=== PATIENT | female | born 1955 | race Caucasian/White ===

== ENCOUNTER → 2020-02-28 08:37 | Outpatient (BNVA) | payer MEDICARE, MEDICAID, SELFPAY | PROVIDERS: PCP Internal Medicine; Visit Provider Student in an Organized Health Care Education/Training Program | DX: Z13.89 Encounter for screening for other disorder (principal) | CPT/HCPCS: Q3014 ==

== ENCOUNTER 2020-03-04 09:35 | Outpatient (REF) | payer MEDICARE, MEDICAID, SELFPAY ==
[2020-03-04 10:56] LABS: MANUAL DIFF FLAG NO
[2020-03-04 11:02] LABS: Basophils Absolute Auto 0.1 X10*3/uL (0.0-0.2); Basophils Percent Auto 1.1 % (0-2); Eosinophils Absolute Auto 0.2 X10*3/uL (0.0-0.4); Eosinophils Percent Auto 3.2 % (0-4); Hematocrit 42.1 % (37-47); Imm Gran Abs Auto 0.06 X10*3/uL (0.00-0.03); Imm Gran Pct Auto 1.3 % (0.0-0.4); Lymphocytes Absolute Auto 1.4 X10*3/uL (1.2-4.9); Lymphocytes Percent Auto 29.2 % (20-40); Mean Corpuscular HGB Conc 30.9 g/dl (31.0-35.0); Mean Corpuscular Hemoglobin 26.3 pg (27.0-33.0); Mean Corpuscular Volume 85.2 fL (80-98); Mean Platelet Volume 10.4 fL (9.4-12.3); Monocytes Absolute Auto 0.4 X10*3/uL (0.1-1.2); Monocytes Percent Auto 7.9 % (2-11); Neutrophils Absolute Auto 2.7 X10*3/uL (2.0-8.3); Neutrophils Percent Auto 57.3 % (45-73); Platelet Count 284 X10*3/uL (160-400); Red Blood Count 4.94 X10*6/uL (4.20-5.50); Red Cell Distribution Width 16.8 % (11.0-16.0); White Blood Count 4.7 X10*3/uL (4.8-10.8)
[2020-03-04 11:28] LABS: Alanine Aminotransferase 19 U/L (0-31); Albumin Level 4.4 g/dL (3.5-5.0); Alkaline Phosphatase 59 U/L (39-117); Anion Gap 14 (12-20); Aspartate Amino Transferase 16 U/L (5-31); Bilirubin Total 0.3 mg/dL (0.0-1.0); Blood Urea Nitrogen 19 mg/dL (9-16); C Reactive Protein 0.21 mg/dL (< or = 0.50); Calcium 8.3 mg/dL (8.4-10.2); Carbon Dioxide 29 mmol/L (22-29); Chloride 108 mmol/L (96-108); Estimated Glomerular Filt Rate > 60; Glucose Random 91 mg/dL (60-115); Potassium 5.1 mmol/l (3.3-5.1); Sodium 146 mmol/L (135-145)
[2020-03-04 11:51] LABS: Erythrocyte Sedimentation Rate 5 MM/HR (0-20)
[2020-03-07 23:32] LABS: Vitamin D 25-OH, D2 <4 ng/mL; Vitamin D 25-OH, D3 37 ng/mL; Vitamin D 25-OH, Total 37 ng/mL (30-100)
== END 2020-03-04 09:36 | disposition home or self-care (01) ==
LOC: HO.LAB 09:35
PROVIDERS: PCP Internal Medicine; Visit Provider Student in an Organized Health Care Education/Training Program
DX: M81.0 Age-related osteoporosis without current pathological fracture (principal); L40.50 Arthropathic psoriasis, unspecified; Z79.899 Other long term (current) drug therapy
CPT/HCPCS: 36415; 80053; 82306; 85025; 85652; 86140

== ENCOUNTER → 2020-03-04 09:35 | Outpatient (BNVA) | payer MEDICARE, MEDICAID, SELFPAY | PROVIDERS: PCP Internal Medicine; Visit Provider Student in an Organized Health Care Education/Training Program | DX: L40.50 Arthropathic psoriasis, unspecified (principal); M81.0 Age-related osteoporosis without current pathological fracture | CPT/HCPCS: 99211 ==

== ENCOUNTER → 2020-05-08 09:22 | Outpatient (BNVA) | payer MEDICARE, MEDICAID, SELFPAY | PROVIDERS: PCP Internal Medicine; Visit Provider Student in an Organized Health Care Education/Training Program | DX: L40.50 Arthropathic psoriasis, unspecified (principal); M81.0 Age-related osteoporosis without current pathological fracture; Z79.899 Other long term (current) drug therapy | CPT/HCPCS: 99212 ==

== ENCOUNTER 2020-08-08 10:03 | Outpatient (REF) | payer MEDICARE, MEDICAID, SELFPAY ==
[2020-08-08 10:58] LABS: MANUAL DIFF FLAG NO
[2020-08-08 11:06] LABS: Basophils Absolute Auto 0.1 X10*3/uL (0.0-0.2); Basophils Percent Auto 1.1 % (0-2); Eosinophils Absolute Auto 0.1 X10*3/uL (0.0-0.4); Eosinophils Percent Auto 2.9 % (0-4); Hematocrit 40.9 % (37-47); Hemoglobin 13.1 g/dl (12.0-16.0); Imm Gran Abs Auto 0.04 X10*3/uL (0.00-0.03); Imm Gran Pct Auto 0.9 % (0.0-0.4); Lymphocytes Absolute Auto 1.7 X10*3/uL (1.2-4.9); Lymphocytes Percent Auto 38.8 % (20-40); Mean Corpuscular Hemoglobin 26.8 pg (27.0-33.0); Mean Corpuscular Volume 83.6 fL (80-98); Mean Platelet Volume 10.9 fL (9.4-12.3); Monocytes Absolute Auto 0.5 X10*3/uL (0.1-1.2); Monocytes Percent Auto 10.7 % (2-11); Neutrophils Percent Auto 45.6 % (45-73); Platelet Count 262 X10*3/uL (160-400); Red Blood Count 4.89 X10*6/uL (4.20-5.50); White Blood Count 4.5 X10*3/uL (4.8-10.8)
[2020-08-08 11:20] LABS: Alanine Aminotransferase 46 U/L (0-31); Albumin Level 4.3 g/dL (3.5-5.0); Alkaline Phosphatase 75 U/L (39-117); Anion Gap 14 (12-20); Aspartate Amino Transferase 32 U/L (5-31); Bilirubin Total 0.6 mg/dL (0.0-1.0); Blood Urea Nitrogen 17 mg/dL (9-16); C Reactive Protein 0.19 mg/dL (< or = 0.50); Carbon Dioxide 28 mmol/L (22-29); Chloride 107 mmol/L (96-108); Estimated Glomerular Filt Rate > 60; Glucose Random 84 mg/dL (60-115); Potassium 4.8 mmol/L (3.3-5.1); Sodium 144 mmol/L (135-145); Total Protein 6.9 g/dL (6.5-8.0)
[2020-08-08 11:50] LABS: Erythrocyte Sedimentation Rate 7 MM/HR (0-20)
[2020-08-12 20:37] LABS: Vitamin D 25-OH, D2 <4 ng/mL; Vitamin D 25-OH, D3 43 ng/mL; Vitamin D 25-OH, Total 43 ng/mL (30-100)
== END 2020-08-08 10:04 | disposition home or self-care (01) ==
LOC: HO.LAB 10:03
PROVIDERS: PCP Internal Medicine; Visit Provider Student in an Organized Health Care Education/Training Program
DX: L40.50 Arthropathic psoriasis, unspecified (principal); M81.0 Age-related osteoporosis without current pathological fracture
CPT/HCPCS: 36415; 80053; 82306; 85025; 85652; 86140

== ENCOUNTER → 2020-08-15 09:45 | Outpatient (BNVA) | payer MEDICARE, MEDICAID, SELFPAY | PROVIDERS: Visit Provider Student in an Organized Health Care Education/Training Program | DX: L40.50 Arthropathic psoriasis, unspecified (principal); M81.0 Age-related osteoporosis without current pathological fracture; Z79.899 Other long term (current) drug therapy | CPT/HCPCS: 99212 ==

== ENCOUNTER 2020-09-11 14:01 | Outpatient (REF) | payer MEDICARE, MEDICAID, SELFPAY ==
[2020-09-11 14:55] LABS: MANUAL DIFF FLAG NO
[2020-09-11 15:00] LABS: Basophils Percent Auto 0.6 % (0-2); Eosinophils Absolute Auto 0.1 X10*3/uL (0.0-0.4); Eosinophils Percent Auto 2.6 % (0-4); Hematocrit 39.7 % (37-47); Hemoglobin 12.6 g/dl (12.0-16.0); Imm Gran Abs Auto 0.02 X10*3/uL (0.00-0.03); Imm Gran Pct Auto 0.4 % (0.0-0.4); Lymphocytes Absolute Auto 1.7 X10*3/uL (1.2-4.9); Lymphocytes Percent Auto 31.3 % (20-40); Mean Corpuscular HGB Conc 31.7 g/dl (31.0-35.0); Mean Corpuscular Hemoglobin 26.6 pg (27.0-33.0); Mean Corpuscular Volume 83.8 fL (80-98); Mean Platelet Volume 10.3 fL (9.4-12.3); Monocytes Absolute Auto 0.5 X10*3/uL (0.1-1.2); Monocytes Percent Auto 9.6 % (2-11); Neutrophils Percent Auto 55.5 % (45-73); Platelet Count 250 X10*3/uL (160-400); Red Blood Count 4.74 X10*6/uL (4.20-5.50); White Blood Count 5.4 X10*3/uL (4.8-10.8)
[2020-09-11 15:14] LABS: Alanine Aminotransferase 21 U/L (0-31); Albumin Level 4.1 g/dL (3.5-5.0); Alkaline Phosphatase 76 U/L (39-117); Anion Gap 12 (12-20); Aspartate Amino Transferase 21 U/L (5-31); Bilirubin Total 0.4 mg/dL (0.0-1.0); Blood Urea Nitrogen 13 mg/dL (9-16); C Reactive Protein 0.27 mg/dL (< or = 0.50); Calcium 9.1 mg/dL (8.4-10.2); Carbon Dioxide 30 mmol/L (22-29); Chloride 106 mmol/L (96-108); Estimated Glomerular Filt Rate > 60; Glucose Random 81 mg/dL (60-115); Potassium 4.6 mmol/L (3.3-5.1); Sodium 143 mmol/L (135-145); Total Protein 6.7 g/dL (6.5-8.0)
[2020-09-11 15:48] LABS: Erythrocyte Sedimentation Rate 5 MM/HR (0-20)
== END 2020-09-11 14:02 | disposition home or self-care (01) ==
LOC: HO.LAB 14:01
PROVIDERS: PCP Internal Medicine; Visit Provider Student in an Organized Health Care Education/Training Program
DX: L40.50 Arthropathic psoriasis, unspecified (principal)
CPT/HCPCS: 36415; 80053; 85025; 85652; 86140

== ENCOUNTER 2020-11-03 10:56 | Outpatient (REF) | payer MEDICARE, MEDICAID, SELFPAY ==
--- NOTE | ~2020-11-03 | CT_ITS ---
EXAMINATION: CT SACRUM CLINICAL INFORMATION: Status post fall. Sacral pain. COMPARISON: None TECHNIQUE: Axial 2 mm thin and reformatted 2 mm thin sagittal and coronal images of the sacrum were obtained without contrast. FINDINGS: Scattered sigmoid diverticulosis without mural thickening or pericolic fat stranding. There are surgical mckenzie in the left pelvis from previous intervention. There is no free fluid or free air. The urinary bladder is unremarkable. Bone windows reveal vacuum disc phenomenon, loss of disc height with spondylosis at the L4-L5 and L5-S1 disc levels. There is no visible fracture, dislocation or bony abnormality involving the sacrum or the coccyx. The SI joints are symmetrical and normal. The visualized iliac bones and bilateral proximal femur are unremarkable. There is moderate L5-S1 and L4-L5 facet joint arthropathy. CT/CT sacrum IMPRESSION: No visible fracture of the sacrum or the coccyx. The rest of the pelvic bones are unremarkable. There are degenerative disc changes at the L4-L5 and L5-S1 disc levels. Sigmoid colon diverticulosis without diverticulitis.
== END 2020-11-03 10:57 | disposition home or self-care (01) ==
LOC: HO.CT 10:56
PROVIDERS: PCP Internal Medicine; Visit Provider Internal Medicine
DX: M53.3 Sacrococcygeal disorders, not elsewhere classified (principal)
CPT/HCPCS: 72192

== ENCOUNTER 2020-11-25 10:07 | Outpatient (REF) | payer MEDICARE, MEDICAID, SELFPAY ==
[2020-11-25 11:59] LABS: MANUAL DIFF FLAG NO
[2020-11-25 12:10] LABS: Basophils Absolute Auto 0.1 X10*3/uL (0.0-0.2); Eosinophils Absolute Auto 0.1 X10*3/uL (0.0-0.4); Eosinophils Percent Auto 2.5 % (0-4); Hematocrit 42.8 % (37-47); Hemoglobin 13.5 g/dl (12.0-16.0); Imm Gran Abs Auto 0.07 X10*3/uL (0.00-0.03); Imm Gran Pct Auto 1.3 % (0.0-0.4); Lymphocytes Absolute Auto 1.7 X10*3/uL (1.2-4.9); Lymphocytes Percent Auto 33.5 % (20-40); Mean Corpuscular HGB Conc 31.5 g/dl (31.0-35.0); Mean Corpuscular Hemoglobin 26.6 pg (27.0-33.0); Mean Corpuscular Volume 84.3 fL (80-98); Mean Platelet Volume 10.8 fL (9.4-12.3); Monocytes Absolute Auto 0.5 X10*3/uL (0.1-1.2); Monocytes Percent Auto 9.4 % (2-11); Neutrophils Absolute Auto 2.7 X10*3/uL (2.0-8.3); Neutrophils Percent Auto 52.3 % (45-73); Platelet Count 265 X10*3/uL (160-400); Red Blood Count 5.08 X10*6/uL (4.20-5.50); Red Cell Distribution Width 15.6 % (11.0-16.0); White Blood Count 5.2 X10*3/uL (4.8-10.8)
[2020-11-25 12:38] LABS: Alanine Aminotransferase 17 U/L (0-31); Albumin Level 4.4 g/dL (3.5-5.0); Alkaline Phosphatase 85 U/L (39-117); Anion Gap 12 (12-20); Aspartate Amino Transferase 17 U/L (5-31); Bilirubin Total 0.4 mg/dL (0.0-1.0); Blood Urea Nitrogen 15 mg/dL (9-16); C Reactive Protein 0.16 mg/dL (< or = 0.50); Calcium 8.8 mg/dL (8.4-10.2); Carbon Dioxide 28 mmol/L (22-29); Chloride 109 mmol/L (96-108); Estimated Glomerular Filt Rate > 60; Glucose Random 88 mg/dL (60-115); Potassium 4.8 mmol/L (3.3-5.1); Sodium 144 mmol/L (135-145)
[2020-11-25 12:59] LABS: Vitamin D 25-OH Total 37.1 ng/mL (>30)
[2020-11-25 13:01] LABS: Erythrocyte Sedimentation Rate 7 MM/HR (0-20)
== END 2020-11-25 10:08 | disposition home or self-care (01) ==
LOC: HO.LAB 10:07
PROVIDERS: PCP Internal Medicine; Visit Provider Nurse Practitioner Family
DX: L40.50 Arthropathic psoriasis, unspecified (principal); M81.0 Age-related osteoporosis without current pathological fracture; Z79.899 Other long term (current) drug therapy
CPT/HCPCS: 36415; 80053; 82306; 85025; 85652; 86140; 99212

== ENCOUNTER 2020-12-04 09:58 | Outpatient (REF) | payer MEDICARE, MEDICAID, SELFPAY ==
--- NOTE | ~2020-12-04 | XR_ITS ---
EXAMINATION: LUMBAR SPINE AND SACROILIAC JOINT X-RAYS CLINICAL INFORMATION: Low back pain COMPARISON: Previous CT of the sacrum October 2020 TECHNIQUE: 3 views of the lumbar spine and 4 views of the sacroiliac joints FINDINGS: Lumbar spine: There is mild curvature of the lower thoracic and upper lumbar spine to the right. There is an old L1 vertebral body compression fracture. No other fracture is seen. There is degenerative disc disease and spondylosis from L3-L4 to L5-S1. There is lower lumbar spine facet arthritis. Sacroiliac joints: The sacroiliac joints are normal-appearing. No evidence of proliferative or erosive arthritis is seen. XR/XR lumbar spine 2-3V IMPRESSION: Lumbar spine: Old L1 vertebral body compression fracture. Degenerative disc disease, spondylosis and facet arthritis of the lower lumbar spine. Normal-appearing sacroiliac joints.
--- NOTE | ~2020-12-04 | XR_ITS ---
EXAMINATION: LUMBAR SPINE AND SACROILIAC JOINT X-RAYS CLINICAL INFORMATION: Low back pain COMPARISON: Previous CT of the sacrum October 2020 TECHNIQUE: 3 views of the lumbar spine and 4 views of the sacroiliac joints FINDINGS: Lumbar spine: There is mild curvature of the lower thoracic and upper lumbar spine to the right. There is an old L1 vertebral body compression fracture. No other fracture is seen. There is degenerative disc disease and spondylosis from L3-L4 to L5-S1. There is lower lumbar spine facet arthritis. Sacroiliac joints: The sacroiliac joints are normal-appearing. No evidence of proliferative or erosive arthritis is seen. XR/XR sacroiliac joint min 3V IMPRESSION: Lumbar spine: Old L1 vertebral body compression fracture. Degenerative disc disease, spondylosis and facet arthritis of the lower lumbar spine. Normal-appearing sacroiliac joints.
== END 2020-12-04 09:59 | disposition home or self-care (01) ==
LOC: HO.XRAY 09:58
PROVIDERS: PCP Internal Medicine; Visit Provider Internal Medicine
DX: M54.50 Low back pain, unspecified (principal); M53.3 Sacrococcygeal disorders, not elsewhere classified
CPT/HCPCS: 72100; 72202; 96372

== ENCOUNTER 2020-12-22 14:04 | Outpatient (REF) | payer MEDICARE, MEDICAID, SELFPAY ==
[2020-12-22 14:48] LABS: Influenza A PCR NEGATIVE (Negative); Influenza B PCR NEGATIVE (Negative); Resp Syncy Virus RNA Qual PCR NEGATIVE (Negative); SARS COV2 PCR INHOUSE NEGATIVE (Negative)
== END 2020-12-22 14:05 | disposition home or self-care (01) ==
LOC: HO.LNP 14:04
PROVIDERS: Visit Provider Family Medicine
DX: Z20.822 Contact with and (suspected) exposure to COVID-19 (principal); B34.9 Viral infection, unspecified
CPT/HCPCS: 0241U

== ENCOUNTER 2021-01-02 10:00 | Outpatient (RCR) | payer MEDICARE, MEDICAID, SELFPAY ==
--- NOTE | 2021-01-02 10:41 | MHC.OT.DC ---
[address] [phone] F: [phone] Occupational Therapy Discharge Note Provider: Dr Tanner Oneil Diagnosis: Right Hand OA Date of Evaluation: 12/15/20 Date of Discharge: 01/02/21 Treatments to Date: 3 Cancellations to Date: 0 No Shows to Date: 0 Discharge Status: Achieved Goals Improved Function Independent with HEP Discharge Summary: Doing well, Ind w/ home program, modifications and general pain management for OA. Goals Met. Electronically Signed By: FAB Amos/Erin Reviewed/agree with student documentation: N/A Therapist: Please Sign and return to therapist, thank you for your referral.
== END 2021-01-02 10:42 | disposition home or self-care (01) ==
LOC: HO.OT 10:00
PROVIDERS: PCP Internal Medicine; Visit Provider Internal Medicine
DX: M79.641 Pain in right hand (principal)
CPT/HCPCS: 29130; 97110; 97140; 97165; 97535; 97760

== ENCOUNTER 2021-01-20 10:33 | Outpatient (REF) | payer MEDICARE, MEDICAID, SELFPAY | END 2021-01-20 10:34 | disposition home or self-care (01) | LOC: HO.HMGCLDS 10:33 | PROVIDERS: PCP Internal Medicine; Visit Provider Internal Medicine | DX: Z20.822 Contact with and (suspected) exposure to COVID-19 (principal) | CPT/HCPCS: C9803; U0003; U0005 ==

== ENCOUNTER 2021-01-28 09:47 | Outpatient (REF) | payer MEDICARE, MEDICAID, SELFPAY ==
[2021-01-28 10:01] LABS: MANUAL DIFF FLAG NO
[2021-01-28 10:37] LABS: Basophils Absolute Auto 0.1 X10*3/uL (0.0-0.2); Eosinophils Absolute Auto 0.1 X10*3/uL (0.0-0.4); Eosinophils Percent Auto 2.3 % (0-4); Hematocrit 42.8 % (37.0-47.0); Hemoglobin 13.2 g/dl (12.0-16.0); Imm Gran Abs Auto 0.03 X10*3/uL (0.00-0.03); Imm Gran Pct Auto 0.6 % (0.0-0.4); Lymphocytes Absolute Auto 1.6 X10*3/uL (1.2-4.9); Lymphocytes Percent Auto 33.1 % (20-40); Mean Corpuscular HGB Conc 30.8 g/dl (31.0-35.0); Mean Corpuscular Hemoglobin 25.9 pg (27.0-33.0); Mean Corpuscular Volume 83.9 fL (80.0-98.0); Mean Platelet Volume 9.8 fL (9.4-12.3); Monocytes Absolute Auto 0.6 X10*3/uL (0.1-1.2); Monocytes Percent Auto 11.9 % (2-11); Neutrophils Absolute Auto 2.4 x10*3/uL (2.0-8.3); Neutrophils Percent Auto 51.1 % (45-73); Platelet Count 265 X10*3/uL (160-400); Red Cell Distribution Width 16.5 % (11.0-16.0); White Blood Count 4.8 X10*3/uL (4.8-10.8)
[2021-01-28 11:05] LABS: Alanine Aminotransferase 25 U/L (0-31); Albumin Level 4.3 g/dL (3.5-5.0); Alkaline Phosphatase 74 U/L (39-117); Anion Gap 13 (12-20); Aspartate Amino Transferase 26 U/L (5-31); Bilirubin Total 0.3 mg/dL (0.0-1.0); Blood Urea Nitrogen 13 mg/dL (9-16); C Reactive Protein 0.33 mg/dL (< or = 0.50); Calcium 8.6 mg/dL (8.4-10.2); Carbon Dioxide 29 mmol/L (22-29); Chloride 107 mmol/L (96-108); Estimated Glomerular Filt Rate > 60; Glucose Random 90 mg/dL (60-115); Potassium 4.5 mmol/L (3.3-5.1); Sodium 144 mmol/L (135-145)
[2021-01-28 11:40] LABS: Erythrocyte Sedimentation Rate 9 MM/HR (0-20)
== END 2021-01-28 09:48 | disposition home or self-care (01) ==
LOC: HO.LAB 09:47
PROVIDERS: PCP Internal Medicine; Visit Provider Nurse Practitioner Family
DX: L40.50 Arthropathic psoriasis, unspecified (principal); M81.0 Age-related osteoporosis without current pathological fracture; I10 Essential (primary) hypertension; E66.9 Obesity, unspecified; Z87.891 Personal history of nicotine dependence; Z68.36 Body mass index [BMI] 36.0-36.9, adult; Z96.653 Presence of artificial knee joint, bilateral; Z76.0 Encounter for issue of repeat prescription; Z88.8 Allergy status to other drugs, medicaments and biological substances; Z79.899 Other long term (current) drug therapy
CPT/HCPCS: 36415; 80053; 85025; 85652; 86140; 99212

== ENCOUNTER 2021-04-30 10:17 | Outpatient (REF) | payer MEDICARE, MEDICAID, SELFPAY ==
--- NOTE | ~2021-04-30 | XR_ITS ---
EXAMINATION: XR ANKLE, LEFT CLINICAL INFORMATION: Left ankle and foot pain. COMPARISON: Left ankle radiographs dated 08/16/2019. TECHNIQUE: AP, lateral, and mortise views of the left ankle. FINDINGS: No acute fracture or dislocation. Corticated ossification adjacent to the medial malleolus consistent with a remote avulsion injury and unchanged. Degenerative spurring superiorly at the medial malleolus, increased when compared to the prior examination. No lytic or blastic osseous lesion. Plantar and dorsal calcaneal enthesophytes. Mild circumferential soft tissue swelling. XR/XR ankle LT 2V IMPRESSION: Mild circumferential soft tissue swelling without acute osseous abnormality. 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
[2021-04-30 11:21] LABS: MANUAL DIFF FLAG NO
[2021-04-30 11:54] LABS: Basophils Percent Auto 0.7 % (0-2); Eosinophils Absolute Auto 0.2 X10*3/uL (0.0-0.4); Eosinophils Percent Auto 2.8 % (0-4); Hematocrit 41.5 % (37.0-47.0); Hemoglobin 12.8 g/dl (12.0-16.0); Imm Gran Abs Auto 0.02 X10*3/uL (0.00-0.03); Imm Gran Pct Auto 0.4 % (0.0-0.4); Lymphocytes Percent Auto 36.5 % (20-40); Mean Corpuscular HGB Conc 30.8 g/dl (31.0-35.0); Mean Corpuscular Hemoglobin 26.5 pg (27.0-33.0); Mean Corpuscular Volume 85.9 fL (80.0-98.0); Mean Platelet Volume 10.5 fL (9.4-12.3); Monocytes Absolute Auto 0.4 X10*3/uL (0.1-1.2); Neutrophils Absolute Auto 2.8 x10*3/uL (2.0-8.3); Neutrophils Percent Auto 52.6 % (45-73); Platelet Count 261 X10*3/uL (160-400); Red Blood Count 4.83 X10*6/uL (4.20-5.50); White Blood Count 5.4 X10*3/uL (4.8-10.8)
[2021-04-30 12:37] LABS: Alanine Aminotransferase 28 U/L (0-31); Albumin Level 4.3 g/dL (3.5-5.0); Alkaline Phosphatase 66 U/L (39-117); Anion Gap 10 (12-20); Aspartate Amino Transferase 20 U/L (5-31); Bilirubin Total 0.3 mg/dL (0.0-1.0); Blood Urea Nitrogen 15 mg/dL (9-16); C Reactive Protein 0.16 mg/dL (< or = 0.50); Carbon Dioxide 31 mmol/L (22-29); Chloride 105 mmol/L (96-108); Erythrocyte Sedimentation Rate 7 MM/HR (0-20); Estimated Glomerular Filt Rate > 60; Glucose Random 86 mg/dL (60-115); Potassium 4.4 mmol/L (3.3-5.1); Sodium 142 mmol/L (135-145); Total Protein 6.9 g/dL (6.5-8.0)
[2021-04-30 12:59] LABS: Vitamin D 25-OH Total 39.9 ng/mL (>30)
== END 2021-04-30 10:18 | disposition home or self-care (01) ==
LOC: HO.LAB 10:17
PROVIDERS: PCP Internal Medicine; Visit Provider Nurse Practitioner Family
DX: L40.50 Arthropathic psoriasis, unspecified (principal); M25.572 Pain in left ankle and joints of left foot; M81.0 Age-related osteoporosis without current pathological fracture; F17.210 Nicotine dependence, cigarettes, uncomplicated; Z79.899 Other long term (current) drug therapy
CPT/HCPCS: 36415; 73600; 80053; 82306; 85025; 85652; 86140; 99212

== ENCOUNTER 2021-05-06 12:02 | Outpatient (REF) | payer MEDICARE, MEDICAID, SELFPAY ==
[2021-05-06 13:48] LABS: Magnesium 2.3 mg/dL (1.6-2.6)
[2021-05-06 14:53] LABS: Folate > 20.0 ng/mL (> or = 4.0); Vitamin B12 470 pg/mL (200-900)
== END 2021-05-06 12:03 | disposition home or self-care (01) ==
LOC: HO.LAB 12:02
PROVIDERS: PCP Internal Medicine; Visit Provider Nurse Practitioner Family
DX: M25.562 Pain in left knee (principal)
CPT/HCPCS: 36415; 82607; 82746; 83735

== ENCOUNTER 2021-06-05 07:11 | Outpatient (REF) | payer MEDICARE, MEDICAID, SELFPAY ==
--- NOTE | ~2021-06-05 | XR_ITS ---
EXAMINATION: KNEE X-RAY CLINICAL INFORMATION: Pain COMPARISON: None TECHNIQUE: Standing AP view of both knees and lateral and sunrise view of the left knee FINDINGS: Left: There is a left 3 component knee replacement in satisfactory position. No fracture, dislocation or x-ray evidence of loosening is seen. There is no joint effusion. Standing AP view of the right knee demonstrate a right knee replacement. XR/XR knee standing BI IMPRESSION: Bilateral knee replacements.
--- NOTE | ~2021-06-05 | XR_ITS ---
EXAMINATION: KNEE X-RAY CLINICAL INFORMATION: Pain COMPARISON: None TECHNIQUE: Standing AP view of both knees and lateral and sunrise view of the left knee FINDINGS: Left: There is a left 3 component knee replacement in satisfactory position. No fracture, dislocation or x-ray evidence of loosening is seen. There is no joint effusion. Standing AP view of the right knee demonstrate a right knee replacement. XR/XR knee LT 2V IMPRESSION: Bilateral knee replacements.
== END 2021-06-05 07:12 | disposition home or self-care (01) ==
LOC: HO.HOSX 07:11
PROVIDERS: Visit Provider Physician Assistant
DX: T84.84XA Pain due to internal orthopedic prosthetic devices, implants and grafts, initial encounter (principal); M51.37 Other intervertebral disc degeneration, lumbosacral region; M47.9 Spondylosis, unspecified; Z96.653 Presence of artificial knee joint, bilateral
CPT/HCPCS: 73560; 73565; 99202

== ENCOUNTER 2021-07-05 09:27 | Emergency (ER) | payer MEDICARE, MEDICAID, SELFPAY ==
[2021-07-05 10:04] VITALS: BP 159/86; PULSE 79; RESP 18; TEMP 36.6; O2SAT 98; BMI 35.4
--- NOTE | 2021-07-05 10:56 | ED.ALLEREA ---
HPI - Allergic Reaction General Chief complaint: Allergic Reaction Stated complaint: rash all over itchy facial swelling Time Seen by Provider: 07/05/21 10:56 Source: patient Mode of arrival: ambulatory Limitations: no limitations History of Present Illness HPI narrative: 65 y/o female with history of psoriatic arthritis on MTX and biologic agent, anxiety/depression, HTN who presents to the ER for evaluation of rash on her face and upper chest as well as multiple painful boils in her underarms. She reports about 1 week ago she developed a red, burning, itchy rash on her upper face and around her eyes. She has been applying topical steroids previously prescribed by her internal grinding machine operator. She also has been taking Benadryl with minimal relief. She also reports a rash on her anterior chest wall that started after her grandbaby vomited on her chest. This is a present for a few weeks, almost a month and is slowly getting better with topical steroids. She also reports bilateral ?boils? under her under arms. A family member in medicine prescribed her 40 mg of prednisone and she started 2 days ago. She reports the boils have improved since starting the prednisone but the rash has not improved yet. She denies any new perfumes, lotions, soaps. She has history of rash on her eyelids in the past and was prescribed hydrocortisone ointment by her internal grinding machine operator for this. The rash today involved more than the eyelids and is around the entire eye area, forehead, and cheeks. MD complaint: allergic reaction, hives and facial swelling Onset (ago): week(s) (1) Exposure: unknown Symptoms: rash, itching and facial swelling Severity: moderate Treatment prior to arrival: benadryl and topical medicine Related Data Home Medications Medication Instructions Recorded Confirmed loratadine 10 mg tablet 10 mg PO DAILY PRN 04/30/21 05/06/21 magnesium oxide 500 mg capsule 500 mg PO DAILY 05/06/21 05/06/21 peg 3350 240 gram-electrolytes ml PO 06/05/21 22.72 gram-6.72 g-5.84 g powdr for soln (Gavilyte-C) triamcinolone acetonide 0.025 % TOPICAL 06/05/21 topical ointment Previous Rx's Medication Instructions Recorded amlodipine 10 mg tablet 10 mg PO DAILY #90 tab 06/01/20 ramipril 10 mg capsule 10 mg PO DAILY 90 Days #90 cap 04/11/21 denosumab 60 mg/mL subcutaneous 60 mg SUBCUT [id number] #1 ml 11/26/20 syringe (Prolia) tramadol 50 mg tablet 50 mg PO BEDTIME #30 tab 01/28/21 lorazepam 0.5 mg tablet 0.5 mg PO BEDTIME PRN 30 Days #30 03/09/21 tab methotrexate sodium 2.5 mg tablet See Rx Instructions PO QWEEK #72 03/23/21 tab bupropion HCl 150 mg tablet,12 hr 150 mg PO DAILY 90 Days #90 tab 05/21/21 sustained-release gabapentin 300 mg capsule 300 mg PO DAILY #90 cap 05/21/21 folic acid 1 mg tablet 1 mg PO DAILY #90 tab 05/22/21 abatacept 125 mg/mL subcutaneous 125 mg SUBCUT QWEEK #4 ml 05/27/21 auto-injector (Orencia ClickJect) cephalexin 500 mg capsule 500 mg PO Q6H 7 Days #28 cap 07/05/21 prednisone 20 mg tablet 20 mg PO DAILY #7 tab 07/05/21 Allergies Allergy/AdvReac Type Severity Reaction Status Date / Time etanercept [From Enbrel] Allergy Severe rash Verified 06/05/21 10:31 adalimumab [From Humira] Allergy Intermediate Rash Verified 06/05/21 10:31 Review of Systems Review of Systems: Constitutional: No Fever, No Chills ENT/Mouth: No sore throat, No Rhinorrhea, No Swallowing Difficulty Eyes: No Eye Pain, + Swelling, + Redness Cardiovascular: No Chest Pain, No SOB Respiratory: No Cough, No Sputum, No Wheezing, No dyspnea Gastrointestinal: No Nausea, No Vomiting, No abdominal Pain Genitourinary: No Dysuria, No Urinary Frequency, No Hematuria Musculoskeletal: + joint pain, No Myalgias Skin: No Skin Lesions, + rash Psych: +Anxiety/Panic, No Depression Heme/Lymph: No Bruising, No Lymphadenopathy PMFSH Past Medical History Medical History Arthritis with psoriasis Compression fracture GABINO (generalized anxiety disorder) HTN (hypertension) 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 Mother Mental health disorder Family/Other Substance use disorder Social History Social History (Updated 06/05/21 @ 10:33 by IVIS Farr) Housing: House Alcohol intake: current Alcohol intake frequency: holidays/special occasions only Alcohol type: hard liquor and other Patient Tobacco Use Status: Former Tobacco user Tobacco use type: Cigarette Cigarettes Per Day: 30 Years Smoked: 40 e-Cigarette/Vaping Use: Never Used Second Hand Smoke Exposure: No Advance Directives: Yes Advance Directives Information Provided: Yes Advance Directives on File: No service: No Current occupational status: retired Current occupation: left hand Physical Exam ED Vital Signs: Vital Signs - 24 hr 07/05/21 10:04 Temperature 98 F Pulse Rate 79 Respiratory Rate 18 Blood Pressure 159/86 H Pulse Oximetry 98 BMI result Body Mass Index 35.4 Appearance: Alert. Oriented X3. No acute distress. HEENT: red, raised, scattered rash of the forehead, periorbital area and maxillary areas, no pustules or vesicles. airway patent. no swelling of the lips or tongue. CVS: Normal heart rate and rhythm. Pulses normal. Respiratory: No respiratory distress. Lungs CTAB Skin: Skin warm and dry. Normal skin color. Normal skin turgor. There is a maculopapular erythematous rash on the left anterior chest wall Extremities: arthritic changes of the fingers bilaterally. Bilateral axillary areas with 1 small erythematous, firm area of induration, peeling skin superficially, no fluctuance or drainage. Neuro: Oriented X 3. Grossly normal, nonfocal Course Course Course Narrative: 65-year-old female presenting to the ER with and itchy, burning, facial rash that started about 1 week ago. She was just initiated on 40 mg of prednisone daily and today is the 3rd day. She also has some healing axillary abscesses, not amenable to incision and drainage today, seems to be improving. Concerned that her rash may be related to her psoriatic arthritis. She has a history of eyelid rash in the past. Will plan to increase her steroids to 60 mg per day for this week and have her follow-up with her internal grinding machine operator as soon as possible. will prescribe Keflex as well in case there is a cellulitic or bacterial component. At this time she is stable for discharge home with close outpatient follow-up. Patient agrees with plan. Critical Care Time Critical Care Time Critical Care Time: No Discharge Plan Discharge Clinical Impression: Facial rash, Abscess of axilla Patient Disposition: Home, Self-Care Instructions: Acute Rash (ED), Abscess (ED) Additional Instructions: Start taking the prescribed antibiotic as directed - complete the entire course Increase the prednisone dose to 60 mg for the next 5 days. Continue your previously prescribed topical steroid as needed for itching. Recommend Benadryl 50 mg every 6 hours until rash is resolved. Use warm compresses to your underarms a few times per day until the boils are gone Follow up with your Dermatolgist as soon as possible If you develop new or worsening symptoms call 911 or come back to the ER for further evaluation. Prescriptions: New cephalexin 500 mg capsule 500 mg PO Q6H 7 Days Qty: 28 0RF prednisone 20 mg tablet 20 mg PO DAILY Qty: 7 0RF No Action amlodipine 10 mg tablet 10 mg PO DAILY Qty: 90 3RF ramipril 10 mg capsule 10 mg PO DAILY 90 Days Qty: 90 3RF methotrexate sodium 2.5 mg tablet See Rx Instructions PO QWEEK Qty: 72 0RF Rx Instructions: 6 tabs PO every week; gabapentin 300 mg capsule 300 mg PO DAILY Qty: 90 2RF bupropion HCl 150 mg tablet sustained-release 12 hr 150 mg PO DAILY 90 Days Qty: 90 1RF folic acid 1 mg tablet 1 mg PO DAILY Qty: 90 1RF Orencia ClickJect 125 mg/mL auto-injector 125 mg subcut QWEEK Qty: 4 2RF lorazepam 0.5 mg tablet 0.5 mg PO BEDTIME PRN (Reason: anxiety) 30 Days Qty: 30 0RF magnesium oxide 500 mg capsule 500 mg PO DAILY 0RF loratadine 10 mg tablet 10 mg PO DAILY PRN0RF Prolia 60 mg/mL syringe 60 mg subcut [id number] Qty: 1 1RF tramadol 50 mg tablet 50 mg PO BEDTIME Qty: 30 5RF triamcinolone acetonide 0.025 % ointment topical 0RF peg 3350-electrolytes [Gavilyte-C] 240-22.72-6.72 -5.84 gram recon soln PO 0RF Referrals: Rosalie Fallon MD [Primary Care Provider] - (facial rash)
== END 2021-07-05 11:51 | disposition home or self-care (01) ==
PROVIDERS: Emergency Provider Emergency Medicine; PCP Internal Medicine
DX: R21 Rash and other nonspecific skin eruption (principal); L02.412 Cutaneous abscess of left axilla; L02.411 Cutaneous abscess of right axilla; L40.50 Arthropathic psoriasis, unspecified; I10 Essential (primary) hypertension; Z79.899 Other long term (current) drug therapy
CPT/HCPCS: 99283

== ENCOUNTER 2021-07-07 08:29 | Outpatient (REF) | payer MEDICARE, MEDICAID, SELFPAY ==
--- NOTE | ~2021-07-07 | XR_ITS ---
EXAMINATION: XR BILATERAL HIPS WITH AP PELVIS CLINICAL INFORMATION: Bilateral hip pain COMPARISON: None TECHNIQUE: AP view of the pelvis and 2 views of each hip were obtained. FINDINGS: Bone alignment is normal. No fracture or dislocation is seen. The hip joints are normal. There is a small soft tissue calcification adjacent to the right greater trochanter. Bones of the pelvis are unremarkable. There are degenerative changes of the lower lumbar spine. XR/XR hips SHALONDA min 3V IMPRESSION: Small soft tissue calcification adjacent to the right greater trochanter suggestive of old soft tissue trauma or bursitis.
== END 2021-07-07 08:30 | disposition home or self-care (01) ==
LOC: HO.XRAY 08:29
PROVIDERS: PCP Internal Medicine; Visit Provider Nurse Practitioner Family
DX: M25.551 Pain in right hip (principal); M25.552 Pain in left hip; M25.562 Pain in left knee; M51.37 Other intervertebral disc degeneration, lumbosacral region; M81.0 Age-related osteoporosis without current pathological fracture; Z96.653 Presence of artificial knee joint, bilateral
CPT/HCPCS: 73522; 99202

== ENCOUNTER → 2021-07-21 11:21 | Outpatient (BNVA) | payer MEDICARE, MEDICAID, SELFPAY | PROVIDERS: PCP Internal Medicine; Visit Provider Nurse Practitioner Family | DX: Z13.89 Encounter for screening for other disorder (principal) | CPT/HCPCS: Q3014 ==

== ENCOUNTER 2021-08-05 08:47 | Outpatient (REF) | payer MEDICARE, MEDICAID, SELFPAY ==
[2021-08-05 09:06] LABS: MANUAL DIFF FLAG NO
[2021-08-05 09:09] LABS: Basophils Percent Auto 0.7 % (0-2); Eosinophils Absolute Auto 0.2 X10*3/uL (0.0-0.4); Eosinophils Percent Auto 3.4 % (0-4); Hematocrit 40.8 % (37.0-47.0); Hemoglobin 12.7 g/dl (12.0-16.0); Imm Gran Abs Auto 0.04 X10*3/uL (0.00-0.03); Imm Gran Pct Auto 0.9 % (0.0-0.4); Lymphocytes Absolute Auto 1.4 X10*3/uL (1.2-4.9); Mean Corpuscular HGB Conc 31.1 g/dl (31.0-35.0); Mean Corpuscular Hemoglobin 26.6 pg (27.0-33.0); Mean Corpuscular Volume 85.5 fL (80.0-98.0); Mean Platelet Volume 9.3 fL (9.4-12.3); Monocytes Absolute Auto 0.4 X10*3/uL (0.1-1.2); Monocytes Percent Auto 8.4 % (2-11); Neutrophils Absolute Auto 2.4 x10*3/uL (2.0-8.3); Neutrophils Percent Auto 54.6 % (45-73); Platelet Count 278 X10*3/uL (160-400); Red Blood Count 4.77 X10*6/uL (4.20-5.50); White Blood Count 4.4 X10*3/uL (4.8-10.8)
[2021-08-05 09:36] LABS: Alanine Aminotransferase 26 U/L (0-31); Alkaline Phosphatase 62 U/L (39-117); Anion Gap 10 (12-20); Aspartate Amino Transferase 25 U/L (5-31); Bilirubin Total 0.4 mg/dL (0.0-1.0); Blood Urea Nitrogen 14 mg/dL (9-16); C Reactive Protein 0.29 mg/dL (< or = 0.50); Carbon Dioxide 29 mmol/L (22-29); Chloride 109 mmol/L (96-108); Estimated Glomerular Filt Rate > 60; Glucose Random 93 mg/dL (60-115); Potassium 4.3 mmol/L (3.3-5.1); Sodium 144 mmol/L (135-145); Total Protein 6.4 g/dL (6.5-8.0)
[2021-08-05 09:56] LABS: Erythrocyte Sedimentation Rate 1 MM/HR (0-20)
== END 2021-08-05 08:48 | disposition home or self-care (01) ==
LOC: HO.LAB 08:47
PROVIDERS: PCP Internal Medicine; Visit Provider Nurse Practitioner Family
DX: L40.50 Arthropathic psoriasis, unspecified (principal); M25.572 Pain in left ankle and joints of left foot; M81.0 Age-related osteoporosis without current pathological fracture; M70.61 Trochanteric bursitis, right hip; Z79.899 Other long term (current) drug therapy
CPT/HCPCS: 36415; 80053; 85025; 85652; 86140; 99212

== ENCOUNTER 2021-09-02 09:26 | Outpatient (REF) | payer MEDICARE, MEDICAID, SELFPAY ==
[2021-09-02 10:52] LABS: Anion Gap 11 (12-20); Blood Urea Nitrogen 13 mg/dL (9-16); Calcium 8.3 mg/dL (8.4-10.2); Carbon Dioxide 29 mmol/L (22-29); Chloride 107 mmol/L (96-108); Estimated Glomerular Filt Rate > 60; Glucose Random 84 mg/dL (60-115); Sodium 143 mmol/L (135-145)
== END 2021-09-02 09:27 | disposition home or self-care (01) ==
LOC: HO.LAB 09:26
PROVIDERS: PCP Internal Medicine; Visit Provider Nurse Practitioner Family
DX: M81.0 Age-related osteoporosis without current pathological fracture (principal); R79.89 Other specified abnormal findings of blood chemistry; Z13.220 Encounter for screening for lipoid disorders
CPT/HCPCS: 36415; 80048

== ENCOUNTER 2021-11-23 11:55 | Outpatient (REF) | payer MEDICARE, MEDICAID, SELFPAY | END 2021-11-23 11:56 | disposition home or self-care (01) | LOC: HO.LAB 11:55 | PROVIDERS: Visit Provider Hospitalist | DX: Z13.89 Encounter for screening for other disorder (principal) | CPT/HCPCS: 0241U ==

== ENCOUNTER 2021-11-24 | Outpatient (REF) | payer MEDICARE, MEDICAID, SELFPAY ==
[2021-11-24 12:22] LABS: Influenza A PCR NEGATIVE (Negative); Influenza B PCR NEGATIVE (Negative); Resp Syncy Virus RNA Qual PCR NEGATIVE (Negative); SARS COV2 PCR INHOUSE NEGATIVE (Negative)
== END 2021-11-24 00:01 | disposition home or self-care (01) ==
LOC: HO.LNP
PROVIDERS: Visit Provider Hospitalist
DX: Z20.822 Contact with and (suspected) exposure to COVID-19 (principal)
CPT/HCPCS: 0241U

== ENCOUNTER 2021-12-11 12:46 | Outpatient (REF) | payer MEDICARE, MEDICAID, SELFPAY ==
[2021-12-11 15:41] LABS: Influenza A PCR NEGATIVE (Negative); Influenza B PCR NEGATIVE (Negative); Resp Syncy Virus RNA Qual PCR NEGATIVE (Negative); SARS COV2 PCR INHOUSE NEGATIVE (Negative)
== END 2021-12-11 12:47 | disposition home or self-care (01) ==
LOC: HO.LAB 12:46
PROVIDERS: Visit Provider Nurse Practitioner Family
DX: R09.89 Other specified symptoms and signs involving the circulatory and respiratory systems (principal); H61.23 Impacted cerumen, bilateral; Z20.822 Contact with and (suspected) exposure to COVID-19
CPT/HCPCS: 0241U

== ENCOUNTER 2021-12-14 11:08 | Emergency (ER) | payer MEDICARE, MEDICAID, SELFPAY ==
--- NOTE | ~2021-12-14 | XR_ITS ---
EXAMINATION: XR CHEST CLINICAL INFORMATION: Chest congestion COMPARISON: None TECHNIQUE: 2 views of the chest were obtained. FINDINGS: No significant abnormality is noted involving the heart, lungs, mediastinum, bony thorax or soft tissues. XR/XR chest 2V IMPRESSION: Unremarkable examination.
[2021-12-14 12:03] VITALS: BP 140/92; PULSE 91; RESP 20; O2SAT 97; BMI 35.9
--- OUTSIDE RECORDS SUMMARY | 2021-12-14 13:39 | XMS_ITS ---
:1955 Author Care Team Providers Name Role Phone ROBERT ELIAS NP Primary Care Provider [phone] Allergies Code Code System Name Reaction Severity Status Onset NKDA ? Medications Name Status Start Date Stop Date ? ? amlodipine Active ? Not available bupropion HCl (bulk) Active ? Not availab le erythromycin 5 mg/gram (0.5 %) eye ointment Active ? Not available APPLY 1 CM RIBBON INTO THE LOWER CONJUN CTIVAL SAC(S) IN THE AFFECTED EYE(S) BY OPHTHALMIC ROUTE 3 TIMES PER DAY folic acid Active ? Not available gabapentin Active ? Not available lorazepam Active ? Not available methotrexate Active ? Not available omeprazole Active ? Not available ramipril Active ? Not available tramadol Active ? Not available Problems None recorded. Procedures Date Name Performed by ? ? Procedure on Shoulder Information not av ailable ? Knee Surgery Information not avai lable ? Knee Surgery Information not avai lable Results Lab Results None recorded. Past Encounters None recorded. Social History Tobacco Smoking Status Never Smoker Vaccine List None recorded. Plan of Care Reminders Provider Appointments None recorded. ? ? Lab None recorded. ? ? Referral None recorded. ? ? Procedures None recorded. ? ? Surgeries None recorded. ? ? Imaging None recorded. ? ? Vitals Blood Pressure 155/91 mm[Hg]
--- NOTE | 2021-12-14 14:27 | ED_ITS ---
HPI - URI/Sore Throat General Chief Complaint: Upper Respiratory Symptoms Stated Complaint: head pressure chest pain Time Seen by Provider: 12/14/21 13:32 Source: patient Mode of arrival: ambulatory Limitations: no limitations History of Present Illness HPI Narrative: Patient is a 65-year-old female who presents to the emergency department for evaluation of respiratory congestion productive cough with yellow/green phlegm, nasal congestion, sinus pressure, and body aches. She states that her symptoms began 1 week ago. She went to an urgent care 3 days ago according COVID influenza testing to be negative at that time. However she continues to feel unwell as her symptoms are not improving. Since yesterday she has been having purulent discharge to the left eye and redness to the eye with itching sensatio n. Denies fevers, chills, sore throat, chest pain, shortness of breath, difficulty breathing, nausea, vomiting, abdominal pain, dysuria, urinary frequency/urgency/hesitancy, weakness. She does report immunocompromised as she has a history of arthritis and currently is taking methotrexate and Orencia injections Related Data Home Medications Medication Instructions Recorded Confirmed loratadine 10 mg tablet 10 mg PO DAILY PRN 04/30/21 12/11/21 triamcinolone acetonide 0.025 % topical 06/05/21 12/11/21 topical ointment calcium carbonate 600 mg-vitamin cap PO 09/03/21 12/11/21 D3 25 mcg (1,000 unit) capsule Previous Rx's Medication Instructions Recorded lorazepam 0.5 mg tablet 0.5 mg PO BEDTIME PRN anxiety 30 03/09/21 days #30 tabs gabapentin 300 mg capsule 300 mg PO DAILY #90 caps 05/21/21 folic acid 1 mg tablet 1 mg PO DAILY #90 tabs 05/22/21 epinephrine 0.3 mg/0.3 mL 0.3 mg (0.3 mL) IM ONCE PRN 07/07/21 injection, auto-injector (EpiPen anaphylaxis #2 ea 2-Celso) diclofenac sodium 1 % topical gel 4 g topical QID PRN pain #100 grams 07/08/21 (Arthritis Pain (diclofenac)) amlodipine 10 mg tablet 10 mg PO DAILY #90 tabs 07/25/21 ramipril 10 mg capsule 10 mg PO DAILY 90 days #90 caps 07/25/21 tramadol 50 mg tablet 50 mg PO BEDTIME #30 tabs 08/18/21 bupropion HCl 150 mg tablet,12 hr 150 mg PO DAILY 90 days #90 tabs 11/18/21 sustained-release abatacept 125 mg/mL subcutaneous 125 mg subcut QWEEK #4 mL 12/02/21 auto-injector (Orencia ClickJect) denosumab 60 mg/mL subcutaneous 60 mg subcut [id number] #1 mL 12/09/21 syringe (Prolia) ofloxacin 0.3 % ear drops 10 drp otic (ears) DAILY 7 days 12/11/21 #10 mL amoxicillin 875 mg-potassium 1 tab PO Q12H 7 days #14 tabs 12/14/21 clavulanate 125 mg tablet erythromycin 5 mg/gram (0.5 %) eye 1 appl ophthalmic-Left Q4H #3.5 12/14/21 ointment grams Allergies Allergy/AdvReac Type Severity Reaction Status Date / Time etanercept [From Enbrel] Allergy Severe rash Verified 12/11/21 12:17 Seasonal Allergies Allergy Severe Rash Verified 12/11/21 12:17 adalimumab [From Humira] Allergy Intermediate Rash Verified 12/11/21 12:17 Review of Systems Review of Systems: Constitutional: No fever. No chills. No weakness. Positive fatigue. ENT/ Mouth: No Ear Pain, positive Nasal Congestion, no sore throat, No Rhinorrhea, No Swallowing Difficulty. Positive eye drainage Skin: No rash or itching. Cardiovascular: No chest pain. No palpitations. Respiratory: No shortness of breath. Positive cough. Positive sputum production. Gastrointestinal: No nausea. No vomiting. No diarrhea. No abdominal pain. Genitourinary: No burning micturition. No urinary frequency. Neurologic: No headache. No dizziness. No syncope. No numbness or tingling in the extremities. Musculoskeletal: No muscle pain. No back pain. No joint pain or stiffness. Yes all other systems are reviewed and are negative [facility] Past Medical History Attestation statement: The following information was validated with the patient. 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 Mother Mental health disorder Family/Other Substance use disorder Social History Social History Housing: House Alcohol intake: current Alcohol intake frequency: holidays/special occasions only Alcohol type: hard liquor and other Patient Tobacco Use Status: Former Tobacco user Tobacco use type: Cigarette Cigarettes Per Day: 30 Years Smoked: 40 e-Cigarette/Vaping Use: Never Used Second Hand Smoke Exposure: No Advance Directives: No Advance Directives Information Provided: Yes service: No Current occupational status: retired Current occupation: left hand Cognitive needs: No Hearing needs: No Vision needs: Yes Physical Exam Vital Signs: Vital Signs: Last Vital Signs Pulse 91 12/14/21 12:03 Resp 20 12/14/21 12:03 BP 140/92 H 12/14/21 12:03 Pulse Ox 97 12/14/21 12:03 O2 Del Method 12/14/21 12:03 BMI result Body Mass Index 35.9 Vital signs have been reviewed as normal and appeared to be correct. Blood press ure normal.? Heart rate normal.? Respiration rate normal. Temperature normal.? Oxygen saturation normal. Appearance: Alert.?Oriented to person, place and time. No acute distress.?Normal affect. Eyes: Pupils equal, round and reactive to light.? Left eye sclera injected, conjunctival erythema, purulence discharge ENT: TM normal bilaterally. Pharynx normal.??Bilateral maxillary sinus pressure upon palpation Neck: Normal inspection.? Neck supple.??No cervical adenopathy CVS: Heart sounds normal. Normal heart rate and rhythm.? Pulses normal.?? Respiratory: No respiratory distress.? Lung sounds clear to auscultation bilaterally?? Abdomen: Soft and non-tender. Normoactive bowel sounds. Skin: Skin warm and dry.? Normal skin color.? ? Extremities: No lower extremity edema.? Neuro: Moves all extremities spontaneously. Sensation intact bilaterally. No motor deficits. Ambulates with normal steady gait. Course Course Course Narrative: Patient is a 65-year-old female with past medical history of arthritis, psoriasis, ged, hypertension, osteoporosis, presenting for evaluation of upper respiratory symptoms. Chest x-ray reveals no acute cardiopulmonary process. At this time history and physical exam not consistent with ACS/PE/pneumonia. PERC negative. Well-appearing although she does appear fatigued, nontoxic, afebrile, no tachycardia or tachypnea/hypoxia. Speaking clear full sentences, ambulatory with steady gait. Maxillary sinus pressure bilaterally concerning for sinusitis and has bacterial conjunctivitis to the left eye Discussed conservative treatment including rest, hydration, Tylenol/ibuprofen as needed for fever and body aches, saline nasal spray, humidifier, jaqq-tku-[id number] cold medication. New prescription for Augmentin sent to pharmacy twice daily for 7 days, and erythromycin every 4 hours hours while awake for 7 days, along with warm moist compresses. Advised to follow-up with primary care provider within 1 week, discussed reasons to return back to the emergency department. All questions were answered. Patient discharged home in stable condition. MDM - URI/Sore Throat Medical Records Attestation: I reviewed the patient's medical records. Lab Data Attestation: I reviewed the patient's lab results. Imaging Data Chest x-ray: Radiologist's impression: XR/XR chest 2V IMPRESSION: Unremarkable examination. Discharge Plan Discharge Clinical Impression: Acute bacterial conjunctivitis of left eye Sinusitis Qualifiers: Sinusitis location: maxillary Chronicity: acute Recurrence: non-recurrent Qualified Code(s): J01.00 - Acute maxillary sinusitis, unspecified Patient Disposition: Home, Self-Care Instructions: Sinusitis (ED), Conjunctivitis (ED) Additional Instructions: Chest x-ray does not reveal evidence of a pneumonia. Be sure to rest, stay well hydrated drinking plenty of fluids, eat small frequent meals. Tylenol/ibuprofen can be used as needed for fever/pain. [id number]-[id number] cold medications may be helpful as well for symptoms. Saline nasal spray, humidifier may be helpful for nasal congestion. New prescriptions were sent to your pharmacy, take Augmentin twice daily, please complete entire course as prescribed for sinus infection. Additionally a min given a prescription for erythromycin eye ointment to take every 4 hours while awake apply to left eye, warm compresses, gentle lid scrubs with warm water and mild non scented soap. You may return to the emergency department with any new or worsening symptoms or concerns. Follow-up with your primary care provider as needed. S Prescriptions: New erythromycin 5 mg/gram (0.5 %) ointment 1 appl ophthalmic-Left Q4H Qty: 3.5 0RF amoxicillin-pot clavulanate 875-125 mg tablet 1 tab PO Q12H 7 Days Qty: 14 0RF No Action gabapentin 300 mg capsule 300 mg PO DAILY Qty: 90 2RF folic acid 1 mg tablet 1 mg PO DAILY Qty: 90 1RF amlodipine 10 mg tablet 10 mg PO DAILY Qty: 90 3RF ramipril 10 mg capsule 10 mg PO DAILY 90 Days Qty: 90 3RF tramadol 50 mg tablet 50 mg PO BEDTIME Qty: 30 3RF calcium carbonate-vitamin D3 600 mg-25 mcg (1,000 unit) capsule PO Rx Instructions: patient takes 2 caps daily bupropion HCl 150 mg tablet sustained-release 12 hr 150 mg PO DAILY 90 Days Qty: 90 1RF Orencia ClickJect 125 mg/mL auto-injector 125 mg subcut QWEEK Qty: 4 0RF Prolia 60 mg/mL syringe 60 mg subcut [id number] Qty: 1 0RF lorazepam 0.5 mg tablet 0.5 mg PO BEDTIME PRN (Reason: anxiety) 30 Days Qty: 30 0RF epinephrine [EpiPen 2-Celso] 0.3 mg/0.3 mL auto-injector 0.3 mg IM ONCE PRN (Reason: anaphylaxis) Qty: 2 0RF Rx Instructions: for 2 doses ofloxacin 0.3 % drops 10 drp otic (ears) DAILY 7 Days Qty: 10 0RF Rx Instructions: Instill 10 drops in each ear for 7 days loratadine 10 mg tablet 10 mg PO DAILY PRN diclofenac sodium [Arthritis Pain (diclofenac)] 1 % gel 4 g topical QID PRN (Reason: pain) Qty: 100 3RF triamcinolone acetonide 0.025 % ointment topical Referrals: Rosalie Fallon MD [Primary Care Provider] - Interventions: ED Discharge Assessment Last Done: 12/14/21 14:46 Discharge Date/Time: 12/14/21 14:46
== END 2021-12-14 14:46 | disposition home or self-care (01) ==
PROVIDERS: Emergency Provider Emergency Medicine; PCP Internal Medicine
DX: J01.00 Acute maxillary sinusitis, unspecified (principal); H10.32 Unspecified acute conjunctivitis, left eye; R05.9 Cough, unspecified
CPT/HCPCS: 71046; 99282; 99283

== ENCOUNTER 2022-01-01 09:29 | Outpatient (REF) | payer MEDICARE, MEDICAID, SELFPAY ==
[2022-01-01 09:45] LABS: MANUAL DIFF FLAG NO
[2022-01-01 10:29] LABS: Basophils Absolute Auto 0.1 X10*3/uL (0.0-0.2); Basophils Percent Auto 0.9 % (0-2); Eosinophils Absolute Auto 0.2 X10*3/uL (0.0-0.4); Eosinophils Percent Auto 2.3 % (0-4); Hematocrit 40.7 % (37.0-47.0); Hemoglobin 12.4 g/dl (12.0-16.0); Imm Gran Abs Auto 0.05 X10*3/uL (0.00-0.03); Imm Gran Pct Auto 0.7 % (0.0-0.4); Lymphocytes Absolute Auto 1.9 X10*3/uL (1.2-4.9); Lymphocytes Percent Auto 27.3 % (20-40); Mean Corpuscular HGB Conc 30.5 g/dl (31.0-35.0); Mean Corpuscular Hemoglobin 25.5 pg (27.0-33.0); Mean Corpuscular Volume 83.7 fL (80.0-98.0); Monocytes Absolute Auto 0.5 X10*3/uL (0.1-1.2); Monocytes Percent Auto 7.5 % (2-11); Neutrophils Absolute Auto 4.3 x10*3/uL (2.0-8.3); Neutrophils Percent Auto 61.3 % (45-73); Platelet Count 338 X10*3/uL (160-400); Red Blood Count 4.86 X10*6/uL (4.20-5.50); Red Cell Distribution Width 16.4 % (11.0-16.0)
[2022-01-01 10:51] LABS: Alanine Aminotransferase 21 U/L (0-31); Albumin Level 4.2 g/dL (3.5-5.0); Alkaline Phosphatase 71 U/L (39-117); Anion Gap 16 (12-20); Aspartate Amino Transferase 19 U/L (5-31); Bilirubin Total 0.6 mg/dL (0.0-1.0); Blood Urea Nitrogen 13 mg/dL (9-16); C Reactive Protein 0.52 mg/dL (< or = 0.50); Calcium 8.3 mg/dL (8.4-10.2); Carbon Dioxide 26 mmol/L (22-29); Chloride 106 mmol/L (96-108); Cholesterol 209 mg/dL; Estimated Glomerular Filt Rate > 60; Glucose Random 83 mg/dL (60-115); HDL Cholesterol 71 mg/dL; LDL Cholesterol Calculated 127 mg/dl; Potassium 4.4 mmol/L (3.3-5.1); Sodium 144 mmol/L (135-145); Total Protein 6.8 g/dL (6.5-8.0); Triglycerides 58 mg/dL
[2022-01-01 11:33] LABS: Erythrocyte Sedimentation Rate 14 MM/HR (0-20)
[2022-01-01 12:41] LABS: Vitamin D 25-OH Total 43.7 ng/mL (>30)
[2022-01-04 17:27] LABS: Calcium (PTHI) 8.5 mg/dL (8.6-10.4); PTHI 69 pg/mL (16-77)
== END 2022-01-01 09:30 | disposition home or self-care (01) ==
LOC: HO.LAB 09:29
PROVIDERS: Absent Provider Nurse Practitioner Family; PCP Internal Medicine; Visit Provider Nurse Practitioner Family
DX: L40.50 Arthropathic psoriasis, unspecified (principal); E83.51 Hypocalcemia; M81.0 Age-related osteoporosis without current pathological fracture; Z13.220 Encounter for screening for lipoid disorders; Z79.899 Other long term (current) drug therapy
CPT/HCPCS: 36415; 80053; 80061; 82306; 83970; 85025; 85652; 86140

== ENCOUNTER → 2022-01-07 08:33 | Outpatient (BNVA) | payer MEDICARE, MEDICAID, SELFPAY | PROVIDERS: PCP Internal Medicine; Referring Provider Internal Medicine; Visit Provider Nurse Practitioner Family | DX: M81.0 Age-related osteoporosis without current pathological fracture (principal); M25.572 Pain in left ankle and joints of left foot; L40.50 Arthropathic psoriasis, unspecified; M70.61 Trochanteric bursitis, right hip; Z79.899 Other long term (current) drug therapy | CPT/HCPCS: 96372; 99212 ==

== ENCOUNTER 2022-04-01 09:34 | Outpatient (REF) | payer MEDICARE, MEDICAID, SELFPAY ==
[2022-04-01 09:49] LABS: MANUAL DIFF FLAG NO
[2022-04-01 11:38] LABS: Basophils Percent Auto 0.6 % (0-2); Eosinophils Absolute Auto 0.1 X10*3/uL (0.0-0.4); Eosinophils Percent Auto 2.4 % (0-4); Hematocrit 42.2 % (37.0-47.0); Hemoglobin 13.2 g/dl (12.0-16.0); Imm Gran Abs Auto 0.04 X10*3/uL (0.00-0.03); Imm Gran Pct Auto 0.9 % (0.0-0.4); Lymphocytes Absolute Auto 1.4 X10*3/uL (1.2-4.9); Lymphocytes Percent Auto 30.8 % (20-40); Mean Corpuscular HGB Conc 31.3 g/dl (31.0-35.0); Mean Corpuscular Hemoglobin 26.1 pg (27.0-33.0); Mean Corpuscular Volume 83.6 fL (80.0-98.0); Mean Platelet Volume 9.8 fL (9.4-12.3); Monocytes Absolute Auto 0.4 X10*3/uL (0.1-1.2); Monocytes Percent Auto 8.1 % (2-11); Neutrophils Absolute Auto 2.7 x10*3/uL (2.0-8.3); Neutrophils Percent Auto 57.2 % (45-73); Platelet Count 281 X10*3/uL (160-400); Red Blood Count 5.05 X10*6/uL (4.20-5.50); Red Cell Distribution Width 16.6 % (11.0-16.0); White Blood Count 4.7 X10*3/uL (4.8-10.8)
[2022-04-01 11:44] LABS: Alanine Aminotransferase 28 U/L (0-31); Albumin Level 4.2 g/dL (3.5-5.0); Alkaline Phosphatase 62 U/L (39-117); Anion Gap 15 (12-20); Aspartate Amino Transferase 22 U/L (5-31); Bilirubin Total 0.5 mg/dL (0.0-1.0); Blood Urea Nitrogen 13 mg/dL (9-16); C Reactive Protein 0.32 mg/dL (< or = 0.50); Calcium 8.5 mg/dL (8.4-10.2); Carbon Dioxide 28 mmol/L (22-29); Chloride 108 mmol/L (96-108); Estimated Glomerular Filt Rate > 60; Glucose Random 79 mg/dL (60-115); Phosphorus 3.8 mg/dL (2.7-4.5); Potassium 4.4 mmol/L (3.3-5.1); Sodium 147 mmol/L (135-145); Total Protein 6.6 g/dL (6.5-8.0)
[2022-04-01 12:23] LABS: Erythrocyte Sedimentation Rate 7 MM/HR (0-20)
[2022-04-05 21:19] LABS: Calcium, Ionized 4.5 mg/dL (4.8-5.6)
== END 2022-04-01 09:35 | disposition home or self-care (01) ==
LOC: HO.LAB 09:34
PROVIDERS: PCP Internal Medicine; Visit Provider Nurse Practitioner Family
DX: E83.51 Hypocalcemia (principal); L40.50 Arthropathic psoriasis, unspecified
CPT/HCPCS: 36415; 80053; 82330; 83735; 84100; 85025; 85652; 86140

== ENCOUNTER 2022-04-22 07:34 | Outpatient (REF) | payer MEDICARE, MEDICAID, SELFPAY ==
--- NOTE | ~2022-04-22 | XR_ITS ---
EXAMINATION: XR HAND, BILATERAL CLINICAL INFORMATION: Arthropathic psoriasis. COMPARISON: None TECHNIQUE: 3 views of each hand. FINDINGS: RIGHT HAND: There is severe loss of PIP more so in the DIP joints with periarticular moderate spurring and [id number]-am-[id number] deformity suggestive of psoriatic etiology. There is no fracture or dislocation. No osteopenia. There is mild flexion deformities of the DIP joints 2nd and 3rd digit. Mild soft tissue swelling seen in the PIP and DIP joints. LEFT HAND: There is severe loss of PIP and DIP joints with periarticular spurring, bony erosive changes and soft tissue swelling of DIP joints. There is no osteopenia. There are flexion deformities of PIP joints with [id number] deformity on lateral view. The soft tissues are normal. XR/XR hand LT min 3V IMPRESSION: 1. Severe arthritic changes PIP and DIP joints with periarticular spurring and soft tissue swelling suspicious of psoriatic arthritis. 2. There is no acute fracture or dislocation seen.
--- NOTE | ~2022-04-22 | XR_ITS ---
EXAMINATION: XR HAND, BILATERAL CLINICAL INFORMATION: Arthropathic psoriasis. COMPARISON: None TECHNIQUE: 3 views of each hand. FINDINGS: RIGHT HAND: There is severe loss of PIP more so in the DIP joints with periarticular moderate spurring and [id number]-[id number] deformity suggestive of psoriatic etiology. There is no fracture or dislocation. No osteopenia. There is mild flexion deformities of the DIP joints 2nd and 3rd digit. Mild soft tissue swelling seen in the PIP and DIP joints. LEFT HAND: There is severe loss of PIP and DIP joints with periarticular spurring, bony erosive changes and soft tissue swelling of DIP joints. There is no osteopenia. There are flexion deformities of PIP joints with [id number] deformity on lateral view. The soft tissues are normal. XR/XR hand RT min 3V IMPRESSION: 1. Severe arthritic changes PIP and DIP joints with periarticular spurring and soft tissue swelling suspicious of psoriatic arthritis. 2. There is no acute fracture or dislocation seen.
[2022-04-22 11:04] LABS: Sodium 145 mmol/L (135-145)
[2022-04-27 12:59] LABS: Calcium, Ionized 4.5 mg/dL (4.8-5.6)
== END 2022-04-22 07:35 | disposition home or self-care (01) ==
LOC: HO.XRAY 07:34
PROVIDERS: PCP Internal Medicine; Visit Provider Nurse Practitioner Family
DX: E87.0 Hyperosmolality and hypernatremia (principal); E83.51 Hypocalcemia; L40.50 Arthropathic psoriasis, unspecified; M79.641 Pain in right hand; M79.642 Pain in left hand
CPT/HCPCS: 36415; 73130; 82330; 84295; 99212

== ENCOUNTER 2022-05-27 10:40 | Outpatient (REF) | payer MEDICARE, MEDICAID, SELFPAY ==
[2022-05-27 13:19] LABS: Vitamin D 25-OH Total 79.7 ng/mL (>30)
[2022-05-31 21:14] LABS: Calcium, Ionized 4.7 mg/dL (4.7-5.5)
== END 2022-05-27 10:41 | disposition home or self-care (01) ==
LOC: HO.LAB 10:40
PROVIDERS: Absent Provider Nurse Practitioner Family; PCP Internal Medicine; Visit Provider Internal Medicine
DX: E55.9 Vitamin D deficiency, unspecified (principal); R79.89 Other specified abnormal findings of blood chemistry
CPT/HCPCS: 36415; 82306; 82330

== ENCOUNTER 2022-07-08 09:59 | Outpatient (REF) | payer MEDICARE, MEDICAID, SELFPAY ==
[2022-07-08 11:17] LABS: MANUAL DIFF FLAG NO
[2022-07-08 12:25] LABS: Basophils Absolute Auto 0.1 X10*3/uL (0.0-0.2); Basophils Percent Auto 1.1 % (0-2); Eosinophils Absolute Auto 0.2 X10*3/uL (0.0-0.4); Eosinophils Percent Auto 4.1 % (0-4); Hematocrit 41.1 % (37.0-47.0); Hemoglobin 12.8 g/dl (12.0-16.0); Imm Gran Abs Auto 0.06 X10*3/uL (0.00-0.03); Imm Gran Pct Auto 1.1 % (0.0-0.4); Lymphocytes Absolute Auto 1.6 X10*3/uL (1.2-4.9); Lymphocytes Percent Auto 28.1 % (20-40); Mean Corpuscular HGB Conc 31.1 g/dl (31.0-35.0); Mean Corpuscular Hemoglobin 25.9 pg (27.0-33.0); Mean Corpuscular Volume 83.2 fL (80.0-98.0); Mean Platelet Volume 10.8 fL (9.4-12.3); Monocytes Absolute Auto 0.5 X10*3/uL (0.1-1.2); Monocytes Percent Auto 9.3 % (2-11); Neutrophils Absolute Auto 3.1 x10*3/uL (2.0-8.3); Neutrophils Percent Auto 56.3 % (45-73); Platelet Count 276 X10*3/uL (160-400); Red Blood Count 4.94 X10*6/uL (4.20-5.50); Red Cell Distribution Width 15.4 % (11.0-16.0); White Blood Count 5.6 X10*3/uL (4.8-10.8)
[2022-07-08 12:52] LABS: Alanine Aminotransferase 21 U/L (0-31); Alkaline Phosphatase 69 U/L (39-117); Anion Gap 14 (12-20); Aspartate Amino Transferase 21 U/L (5-31); Bilirubin Total 0.4 mg/dL (0.0-1.0); Blood Urea Nitrogen 15 mg/dL (9-16); C Reactive Protein 0.25 mg/dL (< or = 0.50); Calcium 8.7 mg/dL (8.4-10.2); Carbon Dioxide 31 mmol/L (22-29); Chloride 105 mmol/L (96-108); Estimated Glomerular Filt Rate > 60; Glucose Random 84 mg/dL (60-115); Phosphorus 4.2 mg/dL (2.7-4.5); Potassium 4.4 mmol/L (3.3-5.1); Sodium 146 mmol/L (135-145); Total Protein 6.6 g/dL (6.5-8.0)
[2022-07-08 13:13] LABS: Vitamin D 25-OH Total 79.4 ng/mL (>30)
[2022-07-08 13:24] LABS: Erythrocyte Sedimentation Rate 7 MM/HR (0-20)
== END 2022-07-08 10:00 | disposition home or self-care (01) ==
LOC: HO.LAB 09:59
PROVIDERS: PCP Internal Medicine; Visit Provider Nurse Practitioner Family
DX: M81.0 Age-related osteoporosis without current pathological fracture (principal); L40.50 Arthropathic psoriasis, unspecified
CPT/HCPCS: 36415; 80053; 82306; 84100; 85025; 85652; 86140; 99212

== ENCOUNTER → 2022-08-03 10:13 | Outpatient (BNVA) | payer MEDICARE, MEDICAID, SELFPAY | PROVIDERS: PCP Internal Medicine; Visit Provider Student in an Organized Health Care Education/Training Program | DX: M81.0 Age-related osteoporosis without current pathological fracture (principal); Z79.620 Long term (current) use of immunosuppressive biologic | CPT/HCPCS: 96372 ==

== ENCOUNTER 2022-08-27 09:41 | Outpatient (REF) | payer MEDICARE, MEDICAID, SELFPAY | END 2022-08-27 09:42 | disposition home or self-care (01) | LOC: HO.LAB 09:41 | PROVIDERS: PCP Internal Medicine; Visit Provider Internal Medicine | DX: E78.5 Hyperlipidemia, unspecified (principal); Z79.899 Other long term (current) drug therapy | CPT/HCPCS: 36415; 80053; 80061 ==

== ENCOUNTER 2022-09-03 09:58 | Outpatient (AMB) | payer MEDICARE, MEDICAID, SELFPAY ==
[2022-09-03 10:01] VITALS: BP 132/78; PULSE 68; O2SAT 96; BMI 34.5
--- NOTE | 2022-09-03 10:01 | AM.OFFVISMDC ---
Intake Vital Signs 09/03/22 10:01 Height 4 ft 8 in Weight 154 lb BMI 34.5 BP 132/78 Blood Pressure Location Lt brachial Position Sitting Pulse 68 Pulse Source Pulse Oximeter Temp Source Skin Pulse Oximetry (%) 96 Oxygen Delivery Method Room Air Intake Visit Reasons: SAWV Intake Note: Patient is here for an Annual Wellness Visit. Tablet Coater Required: No Allergies etanercept [From Enbrel] Allergy (Severe, Verified 09/03/22 10:13) rash Seasonal Allergies Allergy (Severe, Verified 09/03/22 10:13) Rash adalimumab [From Humira] Allergy (Intermediate, Verified 09/03/22 10:13) Rash Medication List - Last Reconciled 09/03/22 by SVITLANA Walsh amlodipine 10 mg PO DAILY bupropion HCl 150 mg PO DAILY 90 days calcium carbonate-vitamin D3 600 mg-25 mcg (1,000 unit) patient takes 2 caps daily denosumab (Prolia) 60 mg subcut [id number] diclofenac sodium 1% (Arthritis Pain (diclofenac)) 4 grams topical QID PRN epinephrine (EpiPen 2-Celso) 0.3 mg (0.3 mL) IM ONCE PRN fluticasone propionate 0.05% appl topical gabapentin 300 mg PO DAILY loratadine 10 mg PO DAILY PRN lorazepam 0.5 mg PO BEDTIME PRN 30 days ramipril 10 mg PO DAILY 90 days risankizumab-rzaa (Skyrizi) 150 mg subcut Q12W tramadol 50 mg PO BEDTIME Fall Risk Assessment Fall risk assessment: No Falls in past year Date Fall Risk Assessed: 09/03/22 HPI SAWV HPI Details Patient is a 66-year-old female who presents today for subsequent wellness visit. Patient of Dr. Hart. Today we discussed patient's need for tetanus vaccine, she would like to hold off on this. Mammogram 03/2022 which was normal, was done at [facility]. Bone density screen 03/2022 which showed osteopenia which was done at [facility]. [place] of care was reviewed with the patient and she was provided with a screening schedule. End of life planning was discussed with the patient and she was provided with a MOLST form, patient has a healthcare proxy in place and she was encouraged to provide office with a copy. [facility] Medical History Arthritis with psoriasis Compression fracture GABINO (generalized anxiety disorder) HTN (hypertension) halfway methotrexate user Lumbar pain Mild recurrent major depression Obesity Osteoarthritis Osteoporosis Otitis Psoriasis Psoriatic arthritis Right hand pain Sacral pain Upper respiratory infection Surgical History History of colonoscopy History of hysterectomy History of tonsillectomy History of total left knee replacement (TKR) History of total right knee replacement (TKR) Family History Father No problems noted. Mother Mental health disorder Family/Other Substance use disorder Social History Housing: House Alcohol intake: current Alcohol intake frequency: holidays/special occasions only Alcohol type: hard liquor and other Patient Tobacco Use Status: Former Tobacco user Tobacco use type: Cigarette Cigarettes Per Day: 30 Years Smoked: 40 e-Cigarette/Vaping Use: Never Used Second Hand Smoke Exposure: No service: No Current occupational status: retired Current occupation: left hand Cognitive needs: No Hearing needs: No Vision needs: Yes Questionnaire Medicare Wellness Checkup What [age] What gender do you identify with?: female During the past 4 weeks, how much have you been bothered by emotional problems such as feeling anxious, depressed, irritable, sad or downhearted, and blue?: not at all During the past 4 weeks, has your physical & emotional health limited your social activities with family, friends, neighbors, or groups?: not at all During the past 4 weeks, how much bodily pain have you generally had?: severe pain (lower left stomach ) During the past 4 weeks, was someone available to help you if you needed & wanted help?: yes, as much as I wanted During the past 4 weeks, what was the hardest physical activity you could do for at least 2 minutes?: moderate Can you get to places out of walking distance without help? (For eg., can you travel alone on buses, taxis or drive your car?): Yes Can you go shopping for groceries or clothes without someone's help?: Yes Can you prepare your own meals?: Yes Can you do your housework without help?: Yes Because of any health problems, do you need the help of another person with your personal care needs such as eating, bathing, dressing or getting around the house?: No Can you handle your own money without help?: Yes During the past 4 weeks, how would you rate your health in general?: fair During the past 4 weeks how have things been going for you?: pretty well Are you having difficulties driving your car?: no Do you always fasten your seat belt when you are in a car?: yes, usually During past 4 weeks, have you been bothered by the following: never: Falling or dizzy when standing up, Sexual problems?, Trouble eating well?, Teeth or denture problems? and Problems using the telephone? and sometimes: Tiredness or fatigue? Have you fallen 2 or more times in the past year?: No Are you afraid of falling?: Yes Are you a smoker?: no During the past 4 weeks, how many drinks of wine, beer, or other alcoholic beverages did you have?: no alcohol at all Do you exercise for about 20 minutes 3 or more times a week?: yes, most of the time Have you been given information to help with the following?: yes: Hazards in your house that might hurt you? and yes: Keeping track of your medications? How often do you have trouble taking medicines the way you have been told to take them?: I always take medicine as prescribed How confident are you that you can control & manage most of your health problems?: very confident What is your race?: White Mini Mental State Exam (MMSE) Orientation What is the (year) (season) (date) (day) (month)?: year, season, date, day and month Score Score: 5 Activity of Daily Living Bathing - sponge bath, tub bath or shower: receives no assistance (gets in/out by self, if usual bathing means Dressing - getting clothes from closets & drawers, including inner/outer garments & fasteners.: gets clothes & gets completely dressed without help Toileting - going to the 'toilet room' for urine/bowel elimination & cleaning self/arranging clothes: goes to toilet room, cleans self, arranges clothes without help Transfer: moves in & out of bed and chair without help (may use support object) Continence: controls urination/bowel movements completely by self Feeding: feeds self without help Total Score: 0 Information obtained from: patient Using telephone: independent Traveling: independent Shopping: independent Preparing meals: independent Housework: independent Taking medicine: independent Managing money: independent PHQ-9 Over the last 2 weeks, how often have you been bothered by any of the following problems? 1. Little interest or pleasure in doing things: not at all 2. Feeling down, depressed, or hopeless: not at all 3. Trouble falling or staying asleep, or sleeping too much: not at all 4. Feeling tired or having little energy: not at all 5. Poor appetite or overeating: not at all 6. Feeling bad about yourself - or that you are a failure or have let yourself or your family down: not at all 7. Trouble concentrating on things, such as reading the newspaper or watching television: not at all 8. Moving or speaking so slowly that other people could have noticed. Or the opposite - being so fidgety or restless that you have been moving around a lot more than usual: not at all 9. Thoughts that you would be better off or of hurting yourself in some way: not at all Total score: 0 Depression Screening Interpretation: Negative 52916 - PHQ-9 Billing: Yes Source: Developed by Drs. Ruben Abel, Regla Saleh, Rome Jurado and colleagues, with an educational jermaine from [employer]. GABINO-7 AMB Questionnaire GABINO-7 Date GABINO - 7 assessed: 09/03/22 Feeling nervous, anxious, or on edge: 0 = Not at all Not being able to stop or control worryin = Not at all Worrying too much about different things: 0 = Not at all Trouble relaxin = Not at all Being so restless that it is hard to sit still: 0 = Not at all Becoming easily annoyed or irritable: 0 = Not at all Feeling afraid as if something awful might happen: 0 = Not at all Total GABINO-7 score (0-4 normal; 5-9 mild; 10-14 moderate; 15-21 severe): 0 Source: Developed by Drs. Ruben Abel, Rome Sorensen and colleagues, with an educational jermaine from [employer]. GABINO-7 Assessment Billing GABINO-7 Assessment Tool: GABINO-7 Assessment 55071 AUDIT C Alcohol Use Questionnaire (AUDIT-C) 1. How often do you have a drink containing alcohol?: Monthly or less 2. How many drinks containing alcohol do you have on a typical day when you are drinking?: 1 or 2 3. How often do you have six or more drinks on one occasion?: Never Total Score: 1 Score Reviewed/Action Taken: No Thrive Questionnaire Date Thrive assessed: 09/03/22 I am a: Patient What is your living situation today?: I have a steady place to live Within the past 12 months, did the food you bought not last and you didn't have the money to get more?: Never true Within the past 12 months, did you worry whether your food would run out before you got money to buy more?: Never true Do you have trouble paying for medicines?: No Do you have trouble getting transportation to medical appointments?: No Do you have trouble paying your heating and electricity bill?: No Do you have trouble taking care of your child, family member or friend?: No Do you have trouble with day-to-day activities such as bathing, preparing meals, shopping, managing finances, etc.?: No Are you currently unemployed and looking for a job?: No Are you interested in more education?: No Currently or been in a relationship where the following occur: no concerns reported Physical Exam Vital Signs: Last Vital Signs Pulse 68 09/03/22 10:01 BP 132/78 09/03/22 10:01 Pulse Ox 96 09/03/22 10:01 Oxygen Delivery Method Room Air 09/03/22 10:01 BMI result Body Mass Index 34.5 Const General: cooperative and no acute distress Orientation/consciousness: patient oriented x3 HEENT Other: Whisper test: pass Neuro Other: Balance: Normal Get up and walk: able to Romberg: negative Tandem gait: able to General: patient oriented x3 Assessment & Plan Assessment & Plan (1) GABINO (generalized anxiety disorder): Code(s): F41.1 - Generalized anxiety disorder Plan: Lorazepam 0.5 mg at bedtime as needed (2) Mild recurrent major depression: Code(s): F33.0 - Major depressive disorder, recurrent, mild Plan: Bupropion 150 mg daily (3) HTN (hypertension): Code(s): I10 - Essential (primary) hypertension Plan: Amlodipine 10 mg daily Low-sodium diet (4) Encounter for annual wellness exam in Medicare patient: Code(s): Z00.00 - Encounter for general adult medical examination without abnormal findings (5) Psoriatic arthritis: Comment: Enbrel 02/2020- injection site reaction after 2 injections switch to Humira 03/2020. Humira discontinued due to injection site reaction. Orencia 11/2020-March 2022, no longer covered by insurance company, appeal was denied. Methotrexate 10/2014- March 2022, self stopped by patient. Code(s): L40.50 - Arthropathic psoriasis, unspecified Plan: Continue to follow-up with rheumatology (6) Diverticulitis: Code(s): K57.92 - Diverticulitis of intestine, part unspecified, without perforation or abscess without bleeding Plan: Patient was recently seen in the emergency department and diagnosed with diverticulitis, she is on antibiotic for 10 days Quality Reporting (2019) Fall Risk Screening ([facility] 139) Last assessed Fall Risk: 09/03/22 Fall risk assessment: No Falls in past year Depression/Bipolar (159/160/161/177) PHQ-9: Total score: 0 Coding Level of Care Code Medicare Subsequent (G0439) Diagnoses GABINO (generalized anxiety disorder) F41.1 Mild recurrent major depression F33.0 HTN (hypertension) I10 Encounter for annual wellness exam in Medicare patient Z00.00 Psoriatic arthritis L40.50 Diverticulitis K57.92 CPT Codes Advance Care Planning - Time spent: 1-15 minutes, not on file ([id number]) Additional Codes GABINO-7 Assessment Billing - GABINO-7 Assessment Tool: GABINO-7 Assessment 67313 ([id number]) Advance Care Planning Advance Care Planning discussion: Exists, not on file Date of discussion: 09/03/22 Who was present: pt and nps Forms completed: None Time spent: 1-15 minutes, not on file Actual minutes spent: 2 Did not discuss due to Cultural/Spiritual beliefs: No
== END 2022-09-03 10:30 | disposition home or self-care (01) ==
PROVIDERS: PCP Internal Medicine; Visit Provider Nurse Practitioner Family
DX: Z00.00 Encounter for general adult medical examination without abnormal findings (principal); F33.0 Major depressive disorder, recurrent, mild; I10 Essential (primary) hypertension; L40.50 Arthropathic psoriasis, unspecified; K57.92 Diverticulitis of intestine, part unspecified, without perforation or abscess without bleeding; F41.1 Generalized anxiety disorder; Z71.89 Other specified counseling
CPT/HCPCS: 1124F; G0439

== ENCOUNTER 2022-10-28 10:26 | Outpatient (AMB) | payer MEDICARE, MEDICAID, SELFPAY ==
[2022-10-28 10:47] VITALS: BP 132/70; PULSE 74; TEMP 36.7; O2SAT 95; BMI 34.6
--- NOTE | 2022-10-28 10:47 | A.OFFVIS_ITS ---
Intake Vital Signs 10/28/22 10:47 Height 4 ft 8 in Weight 154 lb 5.177 oz BMI 34.6 BP 132/70 Blood Pressure Location Rt brachial Position Sitting Pulse 74 Pulse Source Pulse Oximeter Temp 98.0 F Temp Source Skin Pulse Oximetry (%) 95 Intake Visit Reasons: f/u for psoriatic arthritis Intake Note: Pt seen today for PsA follow up. Metalworker Required: No Accompanied by: Self / Same As Patient Allergies etanercept [From Enbrel] Allergy (Severe, Verified 10/28/22 10:53) rash Seasonal Allergies Allergy (Severe, Verified 10/28/22 10:53) Rash adalimumab [From Humira] Allergy (Intermediate, Verified 10/28/22 10:53) Rash Medication List - Last Reconciled 10/28/22 by Lazarus Escoto MD amlodipine 10 mg PO DAILY bupropion HCl 150 mg PO DAILY 90 days calcium carbonate-vitamin D3 600 mg-25 mcg (1,000 unit) patient takes 2 caps daily denosumab (Prolia) 60 mg subcut [id number] diclofenac sodium 1% (Arthritis Pain (diclofenac)) 4 grams topical QID PRN epinephrine (EpiPen 2-Celso) 0.3 mg (0.3 mL) IM ONCE PRN fluticasone propionate 0.05% appl topical gabapentin 300 mg PO DAILY loratadine 10 mg PO DAILY PRN lorazepam 0.5 mg PO BEDTIME PRN 30 days ramipril 10 mg PO DAILY 90 days risankizumab-rzaa (Skyrizi) 150 mg subcut Q12W tramadol 50 mg PO BEDTIME HPI HPI Comments History of Present Illness Details This is a 67-year-old female with psoriasis, psoriatic arthritis and osteoporosis who presents for follow-up. She was last seen by Bibi Arana 07/13. Patient states that she received a couple of doses of scar easy back in June which were quite helpful for her psoriasis, over the last 1-2 weeks she has been having some it she rashes around her eyes and some itchy rashes on her scalp. She believes that the psoriasis is coming back. With regards to her joint pain she has not had any significant problems recently. She only gets right thumb pain that is worse with use. [facility] Medical History (Updated 10/28/22 @ 11:29 by Lazarus Escoto MD) GABINO (generalized anxiety disorder) Mild recurrent major depression Upper respiratory infection Right hand pain Lumbar pain Sacral pain Compression fracture Otitis Osteoporosis Psoriatic arthritis Obesity HTN (hypertension) Psoriasis Osteoarthritis Surgical History History of colonoscopy History of total left knee replacement (TKR) History of tonsillectomy History of hysterectomy History of total right knee replacement (TKR) Family History Father No problems noted. Mother Mental health disorder Family/Other Substance use disorder Social History Housing: House Alcohol intake: current Alcohol intake frequency: holidays/special occasions only Alcohol type: hard liquor and other Patient Tobacco Use Status: Former Tobacco user Tobacco use type: Cigarette Cigarettes Per Day: 30 Years Smoked: 40 e-Cigarette/Vaping Use: Never Used Second Hand Smoke Exposure: No service: No Current occupational status: retired Current occupation: left hand Cognitive needs: No Hearing needs: No Vision needs: Yes Review of Systems Musc Reports arthralgias and Reports stiffness Skin/Breast Reports pruritus Physical Exam Vital Signs: Last Vital Signs Temp 98.0 F 10/28/22 10:47 Pulse 74 10/28/22 10:47 BP 132/70 10/28/22 10:47 Pulse Ox 95 10/28/22 10:47 BMI result Body Mass Index 34.6 Const General: cooperative, healthy appearing and comfortable Nutritional Appearance: obese Orientation/consciousness: patient oriented x3 Limitations: no limitations HEENT Head: Yes normocephalic and Yes atraumatic Mouth: moist mucous membranes Resp Effort & Inspection: normal respiratory effort and able to speak in complete sentences Auscultation: clear to auscultation bilaterally Cardio Rate: regular rate Skin Other: Slight erythema around her eyelids bilaterally without scaling Neuro General: patient oriented x3 Extrem Other: Significant deformities of both hands but no active synovitis Diffuse onycholysis Right 1st CMC joint tenderness Normal range of motion of both wrists, elbows and shoulders without pain No ankle swelling erythema or warmth Negative MTP squeeze test bilaterally Results Reviewed Results Reviewed: Laboratory Tests 01/01/22 04/01/22 04/01/22 09:43 09:46 09:46 04/01/22 04/22/22 05/27/22 09:46 08:44 10:54 05/27/22 10:54 Date of Service: 04/22/22 Procedure(s): XR hand RT min 3V Accession Number(s): [id number] EXAMINATION: XR HAND, BILATERAL CLINICAL INFORMATION: Arthropathic psoriasis.? COMPARISON: None? TECHNIQUE: 3 views of each hand.? FINDINGS: RIGHT HAND: There is severe loss of PIP more so in the DIP joints with periarticular moderate spurring and [id number] deformity suggestive of psoriatic etiology. There is no fracture or dislocation. No osteopenia. There is mild flexion deformities of the DIP joints 2nd and 3rd digit. Mild soft tissue swelling seen in the PIP and DIP joints. LEFT HAND: There is severe loss of PIP and DIP joints with periarticular spurring, bony erosive changes and soft tissue swelling of DIP joints. There is no osteopenia. There are flexion deformities of PIP joints with [id number] deformity on lateral view. The soft tissues are normal. XR/XR hand RT min 3V IMPRESSION: 1. Severe? arthritic changes PIP and DIP joints with periarticular spurring and soft tissue swelling suspicious of psoriatic arthritis. ? 2. There is no acute fracture or dislocation seen. Assessment & Plan Assessment & Plan (1) Psoriatic arthritis: Comment: Enbrel 02/2020- injection site reaction after 2 injections switch to Humira 03/2020. Humira discontinued due to injection site reaction. Orencia 11/2020-March 2022, no longer covered by insurance company, appeal was denied. Methotrexate 10/2014- March 2022, self stopped by patient Skyrizi 06/2022-present effective Code(s): L40.50 - Arthropathic psoriasis, unspecified Plan: This is a 66-year-old female with psoriasis and psoriatic arthritis who presents for follow-up. On Skyrizi prescribed by marketing research analyst. She has no synovitis on exam today. She has chronic deformities related to psoriatic arthritis. Her right thumb pain is chronic and likely due to 1st CMC joint osteoarthritis. Continue Skyrizi, continue to follow-up with marketing research analyst. Labs before next visit in 3 months (2) Osteoporosis: Comment: 10/2017 osteoporosis T score-2.5 in the femoral neck. 10/2019 Osteopenia based on lowest T-score of-2.1 in the femoral neck. 04/01/2022 osteopenia: T-score -2.4 in the femoral neck. Bone mass density leo ues have increased 4.1% from previous and 23.7% from baseline in the spine; 3.4% from previous and 3.9% from baseline in the hip; 1% from previous and 3.5% from baseline in the femoral neck. Fosamax: prior to 2014 - stopped due to GI upset Reclast 2014- exact dates unknown Prolia 05/27/2015- present Code(s): M81.0 - Age-related osteoporosis without current pathological fracture Qualifiers: Osteoporosis type: age-related Presence of current pathological fracture: without current pathological fracture Qualified Code(s): M81.0 - Age- related osteoporosis without current pathological fracture Plan: Last Prolia injection December 27/2023. Next Prolia injection 01/2023. Patient has been on Prolia since 2015. Next DEXA due March 2024. Plan I spent 27 minutes reviewing patient's chart, evaluating patient, ordering diagnostic workup, counseling patient and documenting in the chart Orders: Orders Complete Blood Count Auto Diff 3 Months L40.50 - Arthropathic psoriasis, unspecified C Reactive Protein 3 Months L40.50 - Arthropathic psoriasis, unspecified Comprehensive Met. Panel 3 Months L40.50 - Arthropathic psoriasis, unspecified Erythrocyte Sedimentation Rate 3 Months L40.50 - Arthropathic psoriasis, unspecified Medications: Refilled tramadol 50 mg PO BEDTIME 10 tabs 1RF Coding Level of Care Code Est Pt Level 4 (94566) Diagnoses Psoriatic arthritis L40.50 Age-related osteoporosis without current pathological fracture M81.0 Osteoporosis type: age-related Presence of current pathological fracture: without current pathological fracture
== END 2022-10-28 11:19 | disposition home or self-care (01) ==
PROVIDERS: PCP Internal Medicine; Visit Provider Student in an Organized Health Care Education/Training Program
DX: L40.50 Arthropathic psoriasis, unspecified (principal); M81.0 Age-related osteoporosis without current pathological fracture
CPT/HCPCS: 99214

== ENCOUNTER → 2022-10-28 10:26 | Outpatient (BNVA) | payer MEDICARE, MEDICAID, SELFPAY | PROVIDERS: PCP Internal Medicine; Visit Provider Student in an Organized Health Care Education/Training Program | DX: L40.50 Arthropathic psoriasis, unspecified (principal); M81.0 Age-related osteoporosis without current pathological fracture | CPT/HCPCS: 99212 ==

== ENCOUNTER 2022-12-14 14:03 | Outpatient (AMB) | payer MEDICARE, MEDICAID, SELFPAY ==
[2022-12-14 14:47] VITALS: BP 130/70; PULSE 68; TEMP 36.8; O2SAT 98; BMI 33.8
--- NOTE | 2022-12-14 14:47 | AM.OFFWIN_ITS ---
Intake Vital Signs 12/14/22 14:47 Height 4 ft 8 in Weight 151 lb BMI 33.8 BP 130/70 Blood Pressure Location Lt brachial Position Sitting Pulse 68 Pulse Source Pulse Oximeter Temp 98.2 F Temp Source Temporal Artery Scan Pulse Oximetry (%) 98 Oxygen Delivery Method Room Air Intake Visit Reasons: EP, congestion, sore throat (masked) Intake Note: pt is here for c/o congestion and sore throat Patient Tobacco Use Status: Former Tobacco user Allergies etanercept [From Enbrel] Allergy (Severe, Verified 12/14/22 14:47) rash Seasonal Allergies Allergy (Severe, Verified 12/14/22 14:47) Rash adalimumab [From Humira] Allergy (Intermediate, Verified 12/14/22 14:47) Rash Do you need a note to return to daycare/school/sports/work: Yes HPI EP, congestion, sore throat (masked) HPI Details Patient presents for a sick visit. Reporting symptoms of sinus congestion, sore throat and difficulty swallowing. Low-grade fever. No family member is sick. No recent travel. Patient reports symptoms of malaise and fatigue. [facility] Medical History (Updated 10/28/22 @ 11:29 by Lazarus Escoto MD) GABINO (generalized anxiety disorder) Mild recurrent major depression Upper respiratory infection Right hand pain Lumbar pain Sacral pain Compression fracture Otitis Osteoporosis Psoriatic arthritis Obesity HTN (hypertension) Psoriasis Osteoarthritis Surgical History History of colonoscopy History of total left knee replacement (TKR) History of tonsillectomy History of hysterectomy History of total right knee replacement (TKR) Family History Father No problems noted. Mother Mental health disorder Family/Other Substance use disorder Social History Housing: House Alcohol intake: current Alcohol intake frequency: holidays/special occasions only Alcohol type: hard liquor and other Patient Tobacco Use Status: Former Tobacco user Tobacco use type: Cigarette Cigarettes Per Day: 30 Years Smoked: 40 e-Cigarette/Vaping Use: Never Used Second Hand Smoke Exposure: No service: No Current occupational status: retired Current occupation: left hand Cognitive needs: No Hearing needs: No Vision needs: Yes Physical Exam Vital Signs: Last Vital Signs Temp 98.2 F 12/14/22 14:47 Pulse 68 12/14/22 14:47 BP 130/70 12/14/22 14:47 Pulse Ox 98 12/14/22 14:47 Oxygen Delivery Method Room Air 12/14/22 14:47 BMI result Body Mass Index 33.8 Const General: cooperative and healthy appearing Nutritional Appearance: well nourished Orientation/consciousness: patient oriented x3 Limitations: no limitations HEENT Head: Yes normal to inspection Eyes General: appearance normal, both eyes and all related structures Neck Neck: Yes normal visual inspection Chest Chest palpation & inspection: normal palpation of entire chest wall Resp Effort & Inspection: normal respiratory effort Neuro General: patient oriented x3 Results AMB Rapid Strep AMB Rapid Strep Negative Last Edit by Nam Doyle CMA on 12/14/22 15 :04 Results Reviewed Results Reviewed: Laboratory Last Values Strep Scn Rapid Clinic Negative 12/14/22 15:02 Assessment & Plan Assessment & Plan (1) Upper respiratory infection: Code(s): J06.9 - Acute upper respiratory infection, unspecified Plan: Flonase called in. No antibiotic needed. Increase fluid intake. Orders: Orders AMB Rapid Strep Screen Today Z13.9 - Encounter for screening, unspecified SARS-CoV2/FLU/RSV Today R09.89 - Other specified symptoms and signs involving the circulatory and respiratory systems Medications: Changed From fluticasone propionate 0.05% topical To fluticasone propionate 0.05% 1 appl topical DAILY 15 grams 0RF Coding Level of Care Code Est Pt Level 3 (68802) Diagnoses Upper respiratory infection J06.9
== END 2022-12-14 15:51 | disposition home or self-care (01) ==
PROVIDERS: PCP Internal Medicine; Visit Provider Internal Medicine
DX: J06.9 Acute upper respiratory infection, unspecified (principal); J02.9 Acute pharyngitis, unspecified
CPT/HCPCS: 87880; 99213

== ENCOUNTER 2022-12-14 15:24 | Outpatient (REF) | payer MEDICARE, MEDICAID, SELFPAY ==
[2022-12-14 19:13] LABS: Influenza A PCR NEGATIVE (Negative); Influenza B PCR NEGATIVE (Negative); Resp Syncy Virus RNA Qual PCR POSITIVE (Negative); SARS COV2 PCR INHOUSE NEGATIVE (Negative)
== END 2022-12-14 15:25 | disposition home or self-care (01) ==
LOC: HO.LNP 15:24
PROVIDERS: Visit Provider Internal Medicine
DX: R09.89 Other specified symptoms and signs involving the circulatory and respiratory systems (principal); Z11.52 Encounter for screening for COVID-19
CPT/HCPCS: 0241U

== ENCOUNTER 2022-12-27 10:42 | Outpatient (AMB) | payer MEDICARE, MEDICAID, SELFPAY ==
[2022-12-27 13:06] VITALS: BP 130/86; PULSE 83; O2SAT 98; BMI 35.3
--- NOTE | 2022-12-27 13:06 | AM.OFFWIN_ITS ---
Intake Vital Signs 12/27/22 13:06 Height 4 ft 8 in Weight 157 lb 8 oz BMI 35.3 BP 130/86 Blood Pressure Location Lt brachial Position Sitting Pulse 83 Pulse Source Pulse Oximeter Pulse Oximetry (%) 98 Oxygen Delivery Method Room Air Intake Visit Reasons: EP ears clogged pain down neck Intake Note: Patient is here today for ears clogged and neck pain. Patients states she was here two wks ago and there's no relief. Patient Tobacco Use Status: Former Tobacco user Allergies etanercept [From Enbrel] Allergy (Severe, Verified 12/27/22 13:23) rash Seasonal Allergies Allergy (Severe, Verified 12/27/22 13:23) Rash adalimumab [From Humira] Allergy (Intermediate, Verified 12/27/22 13:23) Rash Medication List - Last Reconciled 12/27/22 by Shane Doty MD amlodipine 10 mg PO DAILY bupropion HCl 150 mg PO DAILY 90 days calcium carbonate-vitamin D3 600 mg-25 mcg (1,000 unit) patient takes 2 caps daily denosumab (Prolia) 60 mg subcut [id number] diclofenac sodium 1% (Arthritis Pain (diclofenac)) 4 grams topical QID PRN doxycycline hyclate 100 mg PO BID epinephrine (EpiPen 2-Celso) 0.3 mg (0.3 mL) IM ONCE PRN fluticasone propionate 0.05% 1 appl topical DAILY fluticasone propionate 110 mcg/actuation 2 puffs inhalation BID fluticasone propionate 50 mcg/actuation 1 spray intranasal BID gabapentin 300 mg PO DAILY loratadine 10 mg PO DAILY PRN lorazepam 0.5 mg PO BEDTIME PRN 30 days ramipril 10 mg PO DAILY 90 days risankizumab-rzaa (Skyrizi) 150 mg subcut Q12W tramadol 50 mg PO BEDTIME HPI EP ears clogged pain down neck HPI Details 67-year-old female presents to the [facility] for a sick visit. Patient reports that her symptoms of ear pain, ears being clogged and postnasal drip remains. The pain is around to the left ear radiating into the neck. Worse on bending the neck forward. No fever or chills pain PFSH Medical History (Updated 10/28/22 @ 11:29 by Lazarus Escoto MD) GABINO (generalized anxiety disorder) Mild recurrent major depression Upper respiratory infection Right hand pain Lumbar pain Sacral pain Compression fracture Otitis Osteoporosis Psoriatic arthritis Obesity HTN (hypertension) Psoriasis Osteoarthritis Surgical History History of colonoscopy History of total left knee replacement (TKR) History of tonsillectomy History of hysterectomy History of total right knee replacement (TKR) Family History Father No problems noted. Mother Mental health disorder Family/Other Substance use disorder Social History Housing: House Alcohol intake: current Alcohol intake frequency: holidays/special occasions only Alcohol type: hard liquor and other Patient Tobacco Use Status: Former Tobacco user Tobacco use type: Cigarette Cigarettes Per Day: 30 Years Smoked: 40 e-Cigarette/Vaping Use: Never Used Second Hand Smoke Exposure: No service: No Current occupational status: retired Current occupation: left hand Cognitive needs: No Hearing needs: No Vision needs: Yes Physical Exam Vital Signs: Last Vital Signs Pulse 83 12/27/22 13:06 BP 130/86 12/27/22 13:06 Pulse Ox 98 12/27/22 13:06 Oxygen Delivery Method Room Air 12/27/22 13:06 BMI result Body Mass Index 35.3 Const General: cooperative and healthy appearing Nutritional Appearance: well nourished Orientation/consciousness: patient oriented x3 Limitations: no limitations HEENT Head: Yes normal to inspection Eyes General: appearance normal, both eyes and all related structures Neck Neck: Yes normal visual inspection Chest Chest palpation & inspection: normal palpation of entire chest wall Resp Effort & Inspection: normal respiratory effort Neuro General: patient oriented x3 Assessment & Plan Assessment & Plan (1) Upper respiratory infection: Code(s): J06.9 - Acute upper respiratory infection, unspecified Plan: Antibiotics ordered. ears Cleaned. Symptom not better to follow-up here. Orders: Orders AMB Cerumen Removal Today H61.23 - Impacted cerumen, bilateral Coding Level of Care Code Est Pt Level 3 (09410) Diagnoses Upper respiratory infection J06.9
== END 2022-12-27 14:04 | disposition home or self-care (01) ==
PROVIDERS: PCP Internal Medicine; Visit Provider Internal Medicine
DX: J06.9 Acute upper respiratory infection, unspecified (principal)
CPT/HCPCS: 99213

== ENCOUNTER 2023-01-10 11:07 | Outpatient (AMB) | payer MEDICARE, MEDICAID, SELFPAY ==
[2023-01-10 11:10] VITALS: BP 120/82; BMI 35.2
--- NOTE | 2023-01-10 11:10 | MHC.PC.OV ---
Vital Signs 01/10/23 11:10 Height 4 ft 8 in Weight 157 lb BMI 35.2 BP 120/82 Blood Pressure Location Lt brachial Position Sitting Intake Visit Reasons: 4 month f/u Intake Note: Patient here for a 4 month follow up Manager Metrology Required: No Accompanied by: Self / Same As Patient Allergies etanercept [From Enbrel] Allergy (Severe, Verified 01/10/23 11:19) rash Seasonal Allergies Allergy (Severe, Verified 01/10/23 11:19) Rash adalimumab [From Humira] Allergy (Intermediate, Verified 01/10/23 11:19) Rash Medication List - Last Reconciled 01/10/23 by Rosalie Oneil MD amlodipine 10 mg PO DAILY bupropion HCl 150 mg PO DAILY 90 days calcium carbonate-vitamin D3 600 mg-25 mcg (1,000 unit) patient takes 2 caps daily denosumab (Prolia) 60 mg subcut [id number] diclofenac sodium 1% (Arthritis Pain (diclofenac)) 4 grams topical QID PRN doxycycline hyclate 100 mg PO BID epinephrine (EpiPen 2-Celso) 0.3 mg (0.3 mL) IM ONCE PRN fluticasone propionate 0.05% 1 appl topical DAILY fluticasone propionate 110 mcg/actuation 2 puffs inhalation BID fluticasone propionate 50 mcg/actuation 1 spray intranasal BID gabapentin 300 mg PO DAILY loratadine 10 mg PO DAILY PRN lorazepam 0.5 mg PO BEDTIME PRN 30 days ramipril 10 mg PO DAILY 90 days risankizumab-rzaa (Skyrizi) 150 mg subcut Q12W tramadol 50 mg PO BEDTIME Tobacco use date assessed: 05/27/22 Fall risk assessment: No Falls in past year Last assessed Fall Risk: 01/10/23 Dental Screening Dental Screen Date: 01/10/23 Did you have a dental visit in the last 12 months?: Yes Did you have a dental problem in the last 6 months where you did not have access to dental care?: No Was dental information given to patient?: Patient has dentist HPI HPI Comments History of Present Illness Details This is a 67-year-old female with mild recurrent major depression, anxiety, hypertension and psoriatic arthritis that comes today for follow-up on her conditions. Depression stable with medication. Anxiety stable with benzodiazepines as needed. Blood pressure within goal. On Skyrizi for psoriatic arthritis and this is follow by Dermatology. [facility] Medical History GABINO (generalized anxiety disorder) Mild recurrent major depression Upper respiratory infection Right hand pain Lumbar pain Sacral pain Compression fracture Otitis Osteoporosis Psoriatic arthritis Obesity HTN (hypertension) Psoriasis Osteoarthritis Surgical History History of colonoscopy History of total left knee replacement (TKR) History of tonsillectomy History of hysterectomy History of total right knee replacement (TKR) Family History Father No problems noted. Mother Mental health disorder Family/Other Substance use disorder Social History Housing: House Alcohol intake: current Alcohol intake frequency: holidays/special occasions only Alcohol type: hard liquor and other Patient Tobacco Use Status: Former Tobacco user Tobacco use type: Cigarette Cigarettes Per Day: 30 Years Smoked: 40 Packs per year/per ci.00 e-Cigarette/Vaping Use: Never Used Second Hand Smoke Exposure: No service: No Current occupational status: retired Current occupation: left hand Cognitive needs: No Hearing needs: No Vision needs: Yes Questionnaire Thrive Questionnaire Date Thrive assessed: 09/03/22 GABINO-7 AMB Questionnaire GABINO-7 Date GABINO - 7 assessed: 09/03/22 Source: Developed by Drs. Ruben Abel, Regla Saleh, Rome Jurado and colleagues, with an educational jermaine from [employer]. Review of Systems Const All systems reviewed & are unremarkable except as noted in HPI and below Eyes Reports no additional complaints, Denies change in vision and Denies other visual disturbances Card Denies chest pain at rest, Denies chest pain with activity, Denies edema, Denies irregular heart rhythm, Denies claudication, Denies dyspnea, Denies dyspnea on exertion, Denies orthopnea, Denies paroxysmal nocturnal dyspnea and Denies slow heart rate Resp Denies cough, Denies dyspnea and Denies dyspnea on exertion GI Denies abdominal pain, Denies change in bowel habits, Denies excessive flatus, Denies nausea and Denies vomiting Denies urinary incontinence, Denies urinary hesitancy and Denies urinary urgency Musc Denies abnormal gait, Denies atrophy, Denies deformity and Denies limited range of motion Skin/Breast Denies bleeding lesions, Denies changing lesions and Denies rash Neuro Denies abnormal gait and Denies lack of coordination Physical exam (Primary Care) Vital Signs: Last Vital Signs BP 120/82 01/10/23 11:10 BMI result Body Mass Index 35.2 Tobacco/Smoking Status: Tobacco use Status Tobacco use date assessed 05/27/22 01/10/23 11:13 Patient Tobacco Use Status Former Tobacco user 01/10/23 11:13 Tobacco use type Cigarette 01/10/23 11:13 e-Cigarette/Vaping Use Never Used 01/10/23 11:13 Thrive Assessment: Date of Thrive Assessment Date Thrive assessed 09/03/22 01/10/23 11:13 Eyes General: appearance normal, both eyes and all related structures Eyelids: Yes eyelids normal Conjunctivae: conjunctivae normal Neck Neck: Yes normal visual inspection and Yes supple Resp Effort & Inspection: normal respiratory effort Auscultation: clear to auscultation bilaterally Cardio Jugular venous distension: no JVD Rate: regular rate Rhythm: regular rhythm Heart sounds: S1 normal heart sound present and S2 normal heart sound present Extrem General: Yes full ROM Office Procedures Flu Questionnaire Does the patient have a severe egg allergy?: No Does the patient have severe life threatening allergies?: No Does the patient have a fever or illness today?: No Has the patient ever had Guillain-[place] Syndrome?: No Has the patient ever had any past reaction to a flu shot?: No Immunizations flu vacc [id number] 6mos up(PF) 60 mcg(15 mcgx4)/0.5 mL IM syringe Performing Provider: Rosalie Oneil MD [facility] Administered by: Scott Woody on 01/10/23 11:40 Dose Route Admin Location Dispensed Lot Number Expiration Date NDC Operations Manager/Coordinator 0.5 mL IM Left Deltoid 0.5 mL [id number] 08/21/23 20436-183-65 [employer] VIS Given Date VIS Provided VIS Publication Date 01/10/23 Single Vaccine 20 Eligibility Eligibility Date Funding Source Not [facility] Eligible 01/10/23 Private Assessment and Plan Assessment & Plan (1) Mild recurrent major depression: Code(s): F33.0 - Major depressive disorder, recurrent, mild Plan: Continue bupropion. (2) HTN (hypertension): Code(s): I10 - Essential (primary) hypertension Plan: Continue amlodipine and ramipril. Blood pressure goal is equal or less than 130/80. (3) Psoriatic arthritis: Comment: Enbrel 02/2020- injection site reaction after 2 injections switch to Humira 03/2020. Humira discontinued due to injection site reaction. Orencia 11/2020-March 2022, no longer covered by insurance company, appeal was denied. Methotrexate 10/2014- March 2022, self stopped by patient Skyrizi 06/2022-present effective Code(s): L40.50 - Arthropathic psoriasis, unspecified Plan: Continue Skyrizi. (4) GABINO (generalized anxiety disorder): Code(s): F41.1 - Generalized anxiety disorder Plan: Continue benzodiazepines as needed. Orders: Orders Influenza [id number] Immunization Today Z23 - Encounter for immunization Coding Level of Care Code Est Pt Level 4 (22018) Diagnoses Mild recurrent major depression F33.0 HTN (hypertension) I10 Psoriatic arthritis L40.50 GABINO (generalized anxiety disorder) F41.1 Time Spent (min) 22
== END 2023-01-10 11:40 | disposition home or self-care (01) ==
PROVIDERS: PCP Internal Medicine; Visit Provider Internal Medicine
DX: F33.0 Major depressive disorder, recurrent, mild (principal); I10 Essential (primary) hypertension; L40.50 Arthropathic psoriasis, unspecified; F41.1 Generalized anxiety disorder; Z23 Encounter for immunization
CPT/HCPCS: 90471; 90686; 99214

== ENCOUNTER 2023-02-08 10:22 | Outpatient (REF) | payer MEDICARE, MEDICAID, SELFPAY ==
--- NOTE | 2023-02-08 10:26 | ECG_ITS ---
Test Reason : PREOP Blood Pressure : / mmHG Vent. Rate : 062 BPM Atrial Rate : 062 BPM P-R Int : 144 ms QRS Dur : 088 ms QT Int : 416 ms P-R-T Axes : 069 023 037 degrees QTc Int : 422 ms Normal sinus rhythm Normal ECG No previous ECGs available Referred By: Rosalie Oneil Electronically Signed By:RUMA NÚÑEZ MD
[2023-02-08 10:39] LABS: MANUAL DIFF FLAG NO
[2023-02-08 10:53] LABS: Basophils Percent Auto 0.8 % (0-2); Eosinophils Absolute Auto 0.1 X10*3/uL (0.0-0.4); Eosinophils Percent Auto 2.1 % (0-4); Hematocrit 43.2 % (37.0-47.0); Hemoglobin 13.6 g/dl (12.0-16.0); Imm Gran Abs Auto 0.03 X10*3/uL (0.00-0.03); Imm Gran Pct Auto 0.6 % (0.0-0.4); Lymphocytes Absolute Auto 1.7 X10*3/uL (1.2-4.9); Lymphocytes Percent Auto 36.1 % (20-40); Mean Corpuscular HGB Conc 31.5 g/dl (31.0-35.0); Mean Corpuscular Hemoglobin 25.7 pg (27.0-33.0); Mean Corpuscular Volume 81.7 fL (80.0-98.0); Mean Platelet Volume 10.4 fL (9.4-12.3); Monocytes Absolute Auto 0.4 X10*3/uL (0.1-1.2); Monocytes Percent Auto 8.4 % (2-11); Neutrophils Absolute Auto 2.5 x10*3/uL (2.0-8.3); Platelet Count 223 X10*3/uL (160-400); Red Blood Count 5.29 X10*6/uL (4.20-5.50); White Blood Count 4.8 X10*3/uL (4.8-10.8)
[2023-02-08 11:20] LABS: Alanine Aminotransferase 15 U/L (0-31); Albumin Level 4.3 g/dL (3.5-5.0); Alkaline Phosphatase 60 U/L (39-117); Anion Gap 13 (12-20); Aspartate Amino Transferase 19 U/L (5-31); Bilirubin Total 0.4 mg/dL (0.0-1.0); Blood Urea Nitrogen 12 mg/dL (9-16); Calcium 9.2 mg/dL (8.4-10.2); Carbon Dioxide 30 mmol/L (22-29); Chloride 107 mmol/L (96-108); Estimated Glomerular Filt Rate > 60; Glucose Random 87 mg/dL (60-115); Potassium 4.2 mmol/L (3.3-5.1); Sodium 146 mmol/L (135-145); Total Protein 7.3 g/dL (6.5-8.0)
[2023-02-08 11:33] LABS: Erythrocyte Sedimentation Rate 6 MM/HR (0-20)
== END 2023-02-08 10:23 | disposition home or self-care (01) ==
LOC: HO.LAB 10:22
PROVIDERS: Student in an Organized Health Care Education/Training Program; PCP Internal Medicine; Visit Provider Internal Medicine
DX: Z01.818 Encounter for other preprocedural examination (principal); L40.50 Arthropathic psoriasis, unspecified
CPT/HCPCS: 36415; 80053; 85025; 85652; 86140; 93005

== ENCOUNTER → 2023-02-08 10:26 | Outpatient (BNV) | payer MEDICARE, MEDICAID, SELFPAY | PROVIDERS: PCP Internal Medicine; Visit Provider Internal Medicine Cardiovascular Disease | DX: I10 Essential (primary) hypertension (principal) | CPT/HCPCS: 93010 ==

== ENCOUNTER 2023-02-22 10:13 | Outpatient (AMB) | payer MEDICARE, MEDICAID, SELFPAY ==
--- NOTE | 2023-02-22 10:14 | A.OFFVIS_ITS ---
Intake Vital Signs 02/22/23 10:21 Height 4 ft 7.51 in Weight 160 lb 0.889 oz BMI 36.5 BP 136/70 Blood Pressure Location Rt brachial Position Sitting Pulse 75 Pulse Source Pulse Oximeter Temp 97 F Temp Source Skin Pulse Oximetry (%) 97 Oxygen Delivery Method Room Air Intake Visit Reasons: PsA/Prolia Inj Intake Note: Pt last seen 10/28/22 presents today for follow up and Prolia injection. Tong Carrier Required: No Accompanied by: Self / Same As Patient Allergies etanercept [From Enbrel] Allergy (Severe, Verified 02/22/23 10:22) rash Seasonal Allergies Allergy (Severe, Verified 02/22/23 10:22) Rash adalimumab [From Humira] Allergy (Intermediate, Verified 02/22/23 10:22) Rash Medication List - Last Reconciled 02/22/23 by Lazarus Escoto MD amlodipine 10 mg PO DAILY bupropion HCl 150 mg PO DAILY 90 days calcium carbonate-vitamin D3 600 mg-25 mcg (1,000 unit) patient takes 2 caps daily denosumab (Prolia) 60 mg subcut [id number] diclofenac sodium 1% (Arthritis Pain (diclofenac)) 4 grams topical QID PRN epinephrine (EpiPen 2-Celso) 0.3 mg (0.3 mL) IM ONCE PRN fluticasone propionate 0.05% 1 appl topical DAILY fluticasone propionate 110 mcg/actuation 2 puffs inhalation BID fluticasone propionate 50 mcg/actuation 1 spray intranasal BID gabapentin 300 mg PO DAILY loratadine 10 mg PO DAILY PRN lorazepam 0.5 mg PO BEDTIME PRN 30 days ramipril 10 mg PO DAILY 90 days risankizumab-rzaa (Skyrizi) 150 mg subcut Q12W tramadol 50 mg PO BEDTIME HPI HPI Comments History of Present Illness Details This is a 67-year-old female with psoriasis, psoriatic arthritis and osteoporosis who presents for follow-up. She was last seen 11/13. Patient states that she is doing well overall. No new symptoms. No significant joint pain or swelling. No psoriasis rashes. Remains on Skyrizi prescribed by Dermatology REPLACED BY [facility] Medical History GABINO (generalized anxiety disorder) Mild recurrent major depression Upper respiratory infection Right hand pain Lumbar pain Sacral pain Compression fracture Otitis Osteoporosis Psoriatic arthritis Obesity HTN (hypertension) Psoriasis Osteoarthritis Surgical History History of colonoscopy History of total left knee replacement (TKR) History of tonsillectomy History of hysterectomy History of total right knee replacement (TKR) Family History Father No problems noted. Mother Mental health disorder Family/Other Substance use disorder Social History Housing: House Alcohol intake: current Alcohol intake frequency: holidays/special occasions only Alcohol type: hard liquor and other Patient Tobacco Use Status: Former Tobacco user Tobacco use type: Cigarette Cigarettes Per Day: 30 Years Smoked: 40 e-Cigarette/Vaping Use: Never Used Second Hand Smoke Exposure: No service: No Current occupational status: retired Current occupation: left hand Cognitive needs: No Hearing needs: No Vision needs: Yes Review of Systems Musc Denies arthralgias Skin/Breast Denies rash Physical Exam Vital Signs: Last Vital Signs Temp 97 F 02/22/23 10:21 Pulse 75 02/22/23 10:21 BP 136/70 02/22/23 10:21 Pulse Ox 97 02/22/23 10:21 Oxygen Delivery Method Room Air 02/22/23 10:21 BMI result Body Mass Index 36.5 Const General: cooperative, healthy appearing and comfortable Nutritional Appearance: obese Orientation/consciousness: patient oriented x3 Limitations: no limitations HEENT Head: Yes normocephalic and Yes atraumatic Mouth: moist mucous membranes Resp Effort & Inspection: normal respiratory effort and able to speak in complete sentences Auscultation: clear to auscultation bilaterally Cardio Rate: regular rate Neuro General: patient oriented x3 Extrem Other: Significant DIP deformities of both hands but no active synovitis Diffuse onycholysis Right 1st CMC joint tenderness Normal range of motion of both wrists, elbows and shoulders without pain No ankle swelling erythema or warmth Negative MTP squeeze test bilaterally Results Reviewed Results Reviewed: Laboratory Tests 01/01/22 04/01/22 04/01/22 09:43 09:46 09:46 04/01/22 04/22/22 05/27/22 09:46 08:44 10:54 05/27/22 10:54 Date of Service: 04/22/22 Procedure(s): XR hand RT min 3V Accession Number(s): [id number] EXAMINATION: XR HAND, BILATERAL CLINICAL INFORMATION: Arthropathic psoriasis.? COMPARISON: None? TECHNIQUE: 3 views of each hand.? FINDINGS: RIGHT HAND: There is severe loss of PIP more so in the DIP joints with periarticular moderate spurring and [id number] deformity suggestive of psoriatic etiology. There is no fracture or dislocation. No osteopenia. There is mild flexion deformities of the DIP joints 2nd and 3rd digit. Mild soft tissue swelling seen in the PIP and DIP joints. LEFT HAND: There is severe loss of PIP and DIP joints with periarticular spurring, bony erosive changes and soft tissue swelling of DIP joints. There is no osteopenia. There are flexion deformities of PIP joints with [id number] deformity on lateral view. The soft tissues are normal. XR/XR hand RT min 3V IMPRESSION: 1. Severe? arthritic changes PIP and DIP joints with periarticular spurring and soft tissue swelling suspicious of psoriatic arthritis. ? 2. There is no acute fracture or dislocation seen. Assessment & Plan Assessment & Plan (1) Psoriatic arthritis: Comment: Enbrel 02/2020- injection site reaction after 2 injections switch to Humira 03/2020. Humira discontinued due to injection site reaction. Orencia 11/2020-March 2022, no longer covered by insurance company, appeal was denied. Methotrexate 10/2014- March 2022, self stopped by patient Skyrizi 06/2022-present effective Code(s): L40.50 - Arthropathic psoriasis, unspecified Plan: This is a 67-year-old female with psoriasis and psoriatic arthritis who presents for follow-up. On Skyrizi prescribed by central office mechanic. She has no synovitis on exam today. She has chronic deformities related to psoriatic arthritis. Her right thumb pain is chronic and likely due to 1st CMC joint osteoarthritis. Not symptomatic today Continue Skyrizi, continue to follow-up with central office mechanic. Labs before next visit in 6 months (2) Osteoporosis: Comment: 10/2017 osteoporosis T score-2.5 in the femoral neck. 10/2019 Osteopenia based on lowest T-score of-2.1 in the femoral neck. 04/01/2022 osteopenia: T-score -2.4 in the femoral neck. Bone mass density values have increased 4.1% from previous and 23.7% from baseline in the spine; 3.4% from previous and 3.9% from baseline in the hip; 1% from previous and 3.5% from baseline in the femoral neck. Fosamax: prior to 2014 - stopped due to GI upset Reclast 2014- exact dates unknown Prolia 05/27/2015- present Code(s): M81.0 - Age-related osteoporosis without current pathological fracture Qualifiers: Osteoporosis type: age-related Presence of current pathological fracture: without current pathological fracture Qualified Code(s): M81.0 - Age- related osteoporosis without current pathological fracture Plan: Last Prolia injection December 27/2023. Patient received Prolia injection in the office today. Next DEXA due March 2024. (3) Immunization counseling: Code(s): Z71.85 - Encounter for immunization safety counseling Plan: Patient received flu vaccine for this season. I suggested that she get the new COVID booster, no need to hold Skyrizi Plan I spent 27 minutes reviewing patient's chart, evaluating patient, ordering diagnostic workup, counseling patient and documenting in the chart Orders: Orders Complete Blood Count Auto Diff 6 Months L40.50 - Arthropathic psoriasis, unspecified C Reactive Protein 6 Months L40.50 - Arthropathic psoriasis, unspecified Comprehensive Met. Panel 6 Months L40.50 - Arthropathic psoriasis, unspecified Erythrocyte Sedimentation Rate 6 Months L40.50 - Arthropathic psoriasis, unspecified Coding Level of Care Code Est Pt Level 4 (92575) Diagnoses Psoriatic arthritis L40.50 Age-related osteoporosis without current pathological fracture M81.0 Osteoporosis type: age-related Presence of current pathological fracture: without current pathological fracture Immunization counseling Z71.85
[2023-02-22 10:21] VITALS: BP 136/70; PULSE 75; TEMP 36.1; O2SAT 97; BMI 36.5
== END 2023-02-22 10:35 | disposition home or self-care (01) ==
PROVIDERS: PCP Internal Medicine; Visit Provider Student in an Organized Health Care Education/Training Program
DX: L40.50 Arthropathic psoriasis, unspecified (principal); M81.0 Age-related osteoporosis without current pathological fracture; Z71.85 Encounter for immunization safety counseling
CPT/HCPCS: 99214

== ENCOUNTER → 2023-02-22 10:13 | Outpatient (BNVA) | payer MEDICARE, MEDICAID, SELFPAY | PROVIDERS: PCP Internal Medicine; Visit Provider Student in an Organized Health Care Education/Training Program | DX: M81.0 Age-related osteoporosis without current pathological fracture (principal); L40.50 Arthropathic psoriasis, unspecified; Z79.899 Other long term (current) drug therapy; Z71.85 Encounter for immunization safety counseling | CPT/HCPCS: 96372; 99212; J0897 ==

== ENCOUNTER 2023-08-29 08:58 | Outpatient (REF) | payer MEDICARE, MEDICAID, SELFPAY ==
[2023-08-29 09:25] LABS: MANUAL DIFF FLAG NO
[2023-08-29 10:22] LABS: Basophils Absolute Auto 0.1 X10*3/uL (0.0-0.2); Eosinophils Absolute Auto 0.2 X10*3/uL (0.0-0.4); Eosinophils Percent Auto 3.1 % (0-4); Hematocrit 43.7 % (37.0-47.0); Imm Gran Abs Auto 0.07 X10*3/uL (0.00-0.03); Imm Gran Pct Auto 1.4 % (0.0-0.4); Lymphocytes Absolute Auto 1.6 X10*3/uL (1.2-4.9); Lymphocytes Percent Auto 32.2 % (20-40); Mean Corpuscular Volume 81.2 fL (80.0-98.0); Mean Platelet Volume 9.8 fL (9.4-12.3); Monocytes Absolute Auto 0.4 X10*3/uL (0.1-1.2); Monocytes Percent Auto 7.5 % (2-11); Neutrophils Absolute Auto 2.7 x10*3/uL (2.0-8.3); Neutrophils Percent Auto 54.8 % (45-73); Platelet Count 271 X10*3/uL (160-400); Red Blood Count 5.38 X10*6/uL (4.20-5.50); Red Cell Distribution Width 15.6 % (11.0-16.0); White Blood Count 4.9 X10*3/uL (4.8-10.8)
[2023-08-29 10:49] LABS: Alanine Aminotransferase 15 U/L (0-31); Albumin Level 4.2 g/dL (3.5-5.0); Alkaline Phosphatase 68 U/L (39-117); Anion Gap 14 (12-20); Aspartate Amino Transferase 16 U/L (5-31); Bilirubin Total 0.3 mg/dL (0.0-1.0); Blood Urea Nitrogen 18 mg/dL (9-16); C Reactive Protein 0.61 mg/dL (< or = 0.50); Calcium 9.6 mg/dL (8.4-10.2); Carbon Dioxide 28 mmol/L (22-29); Chloride 107 mmol/L (96-108); Estimated Glomerular Filt Rate > 60; Glucose Random 85 mg/dL (60-115); Potassium 4.3 mmol/L (3.3-5.1); Sodium 145 mmol/L (135-145); Total Protein 7.5 g/dL (6.5-8.0)
[2023-08-29 11:03] LABS: Erythrocyte Sedimentation Rate 11 MM/HR (0-20)
[2023-09-02 13:30] LABS: Vitamin D 25-OH, D2 <4 ng/mL; Vitamin D 25-OH, D3 45 ng/mL; Vitamin D 25-OH, Total 45 ng/mL (30-100)
== END 2023-08-29 08:59 | disposition home or self-care (01) ==
LOC: HO.LAB 08:58
PROVIDERS: PCP Internal Medicine; Visit Provider Student in an Organized Health Care Education/Training Program
DX: L40.50 Arthropathic psoriasis, unspecified (principal); M81.0 Age-related osteoporosis without current pathological fracture
CPT/HCPCS: 36415; 80053; 82306; 85025; 85652; 86140; 96372; 99212; J0897

== ENCOUNTER 2023-08-29 09:43 | Outpatient (AMB) | payer MEDICARE, MEDICAID, SELFPAY ==
--- NOTE | 2023-08-29 09:53 | A.OFFVIS_ITS ---
Vital Signs 08/29/23 10:01 Height 4 ft 7.5 in Weight 154 lb 5.177 oz BMI 35.2 BP 124/80 Blood Pressure Location Lt brachial Position Sitting Pulse 70 Pulse Source Pulse Oximeter Pulse Oximetry (%) 98 Oxygen Delivery Method Room Air Intake Visit Reasons: PsA/prolia Intake Note: Patient presents for PsA. Allergies etanercept [From Enbrel] Allergy (Severe, Verified 08/29/23 09:56) rash Seasonal Allergies Allergy (Severe, Verified 08/29/23 09:56) Rash adalimumab [From Humira] Allergy (Intermediate, Verified 08/29/23 09:56) Rash Medication List - Last Reconciled 08/29/23 by Lazarus Escoto MD amlodipine 10 mg PO DAILY bupropion HCl SR 150 mg PO DAILY 90 days calcium carbonate-vitamin D3 600 mg-25 mcg (1,000 unit) patient takes 2 caps daily denosumab (Prolia) 60 mg subcut [id number] diclofenac sodium 1% (Arthritis Pain (diclofenac)) 4 grams topical QID PRN epinephrine (EpiPen 2-Celso) 0.3 mg (0.3 mL) IM ONCE PRN fluticasone propionate 0.05% 1 appl topical DAILY fluticasone propionate 110 mcg/actuation 2 puffs inhalation BID fluticasone propionate 50 mcg/actuation 1 spray intranasal BID gabapentin 300 mg PO DAILY lorazepam 0.5 mg PO BEDTIME PRN 30 days Prolia (denosumab) 60 mg subcut [id number] NS ramipril 10 mg PO DAILY 90 days risankizumab-rzaa (Skyrizi) 150 mg subcut Q12W tramadol 50 mg PO BEDTIME PRN HPI Comments Details: This is a 67-year-old female with psoriasis, psoriatic arthritis and osteoporosis who presents for follow-up. She was last seen 02/2023. She is here her Prolia injection Patient states that she is doing well overall. No new symptoms. Continues to have right thumb base intermittent joint pain. She applies Voltaren gel sometimes. No psoriasis rashes. Remains on Skyrizi prescribed by Dermatology [facility] Medical History GABINO (generalized anxiety disorder) Mild recurrent major depression Upper respiratory infection Right hand pain Lumbar pain Sacral pain Compression fracture Otitis Osteoporosis Psoriatic arthritis Obesity HTN (hypertension) Psoriasis Osteoarthritis Surgical History H/O toe surgery History of colonoscopy History of total left knee replacement (TKR) History of tonsillectomy History of hysterectomy History of total right knee replacement (TKR) Family History Father No problems noted. Mother Mental health disorder Family/Other Substance use disorder Social History Housing: House Alcohol intake: current Alcohol intake frequency: holidays/special occasions only Alcohol type: hard liquor and other Patient Tobacco Use Status: Former Tobacco user Tobacco use type: Cigarette Cigarettes Per Day: 30 Years Smoked: 40 e-Cigarette/Vaping Use: Never Used Second Hand Smoke Exposure: No service: No Current occupational status: retired Current occupation: left hand Cognitive needs: No Hearing needs: No Vision needs: Yes Review of Systems Musc Reports arthralgias Skin/Breast Denies rash Physical Exam Vital Signs: Last Vital Signs Pulse 70 08/29/23 10:01 BP 124/80 08/29/23 10:01 Pulse Ox 98 08/29/23 10:01 Oxygen Delivery Method Room Air 08/29/23 10:01 BMI result Body Mass Index 35.2 Const General: cooperative, healthy appearing and comfortable Nutritional Appearance: obese Orientation/consciousness: patient oriented x3 Limitations: no limitations HEENT Head: Yes normocephalic and Yes atraumatic Mouth: moist mucous membranes Resp Effort & Inspection: normal respiratory effort and able to speak in complete sentences Auscultation: clear to auscultation bilaterally Cardio Rate: regular rate Neuro General: patient oriented x3 Extrem Other: Significant DIP deformities of both hands but no active synovitis Diffuse onycholysis Right 1st CMC joint tenderness Normal range of motion of both wrists, elbows and shoulders without pain No ankle swelling erythema or warmth Negative MTP squeeze test bilaterally Office Meds Prolia 60 mg/mL subcutaneous syringe Performing Provider: Lazarus Escoto MD Performing Location: [facility] Administered by: Ebony Alvarez RN on 08/29/23 10:20 Dose Route Admin Location Dispensed Lot Number Expiration Date ND [employer] 60 mg subcut right upper arm 1 mL [id number] 10/21/25 69452-554-09 [employer]GEN Comments: Consent form signed. Pt tolerated injection well. Pt denies any adverse reactions with previous injections. Results Reviewed Results Reviewed: Laboratory Tests 01/01/22 04/01/22 04/01/22 09:43 09:46 09:46 04/01/22 04/22/22 05/27/22 09:46 08:44 10:54 05/27/22 10:54 Date of Service: 04/22/22 Procedure(s): XR hand RT min 3V Accession Number(s): [id number] EXAMINATION: XR HAND, BILATERAL CLINICAL INFORMATION: Arthropathic psoriasis.? COMPARISON: None? TECHNIQUE: 3 views of each hand.? FINDINGS: RIGHT HAND: There is severe loss of PIP more so in the DIP joints with periarticular moderate spurring and vyrtpu-[id number] deformity suggestive of psoriatic etiology. There is no fracture or dislocation. No osteopenia. There is mild flexion deformities of the DIP joints 2nd and 3rd digit. Mild soft tissue swelling seen in the PIP and DIP joints. LEFT HAND: There is severe loss of PIP and DIP joints with periarticular spurring, bony erosive changes and soft tissue swelling of DIP joints. There is no osteopenia. There are flexion deformities of PIP joints with [id number]-[id number] deformity on lateral view. The soft tissues are normal. XR/XR hand RT min 3V IMPRESSION: 1. Severe? arthritic changes PIP and DIP joints with periarticular spurring and soft tissue swelling suspicious of psoriatic arthritis. ? 2. There is no acute fracture or dislocation seen. Assessment & Plan Assessment & Plan (1) Psoriatic arthritis: Comment: Enbrel 02/2020- injection site reaction after 2 injections switch to Humira 03/2020. Humira discontinued due to injection site reaction. Orencia 11/2020-March 2022, no longer covered by insurance company, appeal was denied. Methotrexate 10/2014- March 2022, self stopped by patient Skyrizi 06/2022-present effective Code(s): L40.50 - Arthropathic psoriasis, unspecified Category: Medical Plan: This is a 67-year-old female with psoriasis and psoriatic arthritis who presents for follow-up. On Skyrizi prescribed by distribution sales manager. She has no synovitis on exam today. She has chronic deformities related to psoriatic arthritis. Her right thumb pain is chronic and likely due to 1st CMC joint osteoarthritis. Minimally symptomatic. Can use Voltaren gel as needed Continue Skyrizi, continue to follow-up with distribution sales manager. (2) Osteoporosis: Comment: 10/2017 osteoporosis T score-2.5 in the femoral neck. 10/2019 Osteopenia based on lowest T-score of-2.1 in the femoral neck. 04/01/2022 osteopenia: T-score -2.4 in the femoral neck. Bone mass density values have increased 4.1% from previous and 23.7% from baseline in the spine; 3.4% from previous and 3.9% from baseline in the hip; 1% from previous and 3.5% from baseline in the femoral neck. Fosamax: prior to 2014 - stopped due to GI upset Reclast 2014- exact dates unknown Prolia 05/27/2015- present Code(s): M81.0 - Age-related osteoporosis without current pathological fracture Category: Medical Qualifiers: Osteoporosis type: age-related Presence of current pathological fracture: without current pathological fracture Qualified Code(s): M81.0 - Age- related osteoporosis without current pathological fracture Plan: Last Prolia injection 02/2023. Patient received Prolia injection in the office today. Continue with vitamin-D supplementation. Next DEXA due March 2024. Labs before next visit in 6 months Plan I spent 17 minutes reviewing patient's chart, evaluating patient, ordering diagnostic workup, counseling patient and documenting in the chart Orders: Orders Basic Metabolic Panel 6 Months M81.0 - Age-related osteoporosis without current pathological fracture Coding Level of Care Code Est Pt Level 3 (20626) Diagnoses Psoriatic arthritis L40.50 Age-related osteoporosis without current pathological fracture M81.0 Osteoporosis type: age-related Presence of current pathological fracture: without current pathological fracture
[2023-08-29 10:01] VITALS: BP 124/80; PULSE 70; O2SAT 98; BMI 35.2
== END 2023-08-29 10:17 | disposition home or self-care (01) ==
PROVIDERS: PCP Internal Medicine; Visit Provider Student in an Organized Health Care Education/Training Program
DX: L40.50 Arthropathic psoriasis, unspecified (principal); M81.0 Age-related osteoporosis without current pathological fracture
CPT/HCPCS: 99213

== ENCOUNTER 2023-09-27 14:19 | Outpatient (AMB) | payer MEDICARE, MEDICAID, SELFPAY ==
--- NOTE | 2023-09-27 14:30 | AM.OFFVISMDC ---
Intake Vital Signs 09/27/23 14:31 Height 4 ft 7.5 in Weight 153 lb BMI 34.9 BP 118/68 Blood Pressure Location Lt brachial Position Sitting Intake Visit Reasons: SAWV Intake Note: Patient here for a subsequent annual wellness visit Certified First Assistant Required: No Accompanied by: Self / Same As Patient Allergies etanercept [From Enbrel] Allergy (Severe, Verified 09/27/23 14:51) rash Seasonal Allergies Allergy (Severe, Verified 09/27/23 14:51) Rash adalimumab [From Humira] Allergy (Intermediate, Verified 09/27/23 14:51) Rash Medication List - Last Reconciled 09/27/23 by Rosalie Oneil MD amlodipine 10 mg PO DAILY bupropion HCl SR 150 mg PO DAILY 90 days calcium carbonate-vitamin D3 600 mg-25 mcg (1,000 unit) patient takes 2 caps daily denosumab (Prolia) 60 mg subcut [id number] diclofenac sodium 1% (Arthritis Pain (diclofenac)) 4 grams topical QID PRN epinephrine (EpiPen 2-Celso) 0.3 mg (0.3 mL) IM ONCE PRN fluticasone propionate 0.05% 1 appl topical DAILY fluticasone propionate 110 mcg/actuation 2 puffs inhalation BID fluticasone propionate 50 mcg/actuation 1 spray intranasal BID gabapentin 300 mg PO DAILY lorazepam 0.5 mg PO BEDTIME PRN 30 days ramipril 10 mg PO DAILY 90 days risankizumab-rzaa (Skyrizi) 150 mg subcut Q12W tramadol 50 mg PO BEDTIME PRN HPI HPI Comments History of Present Illness Details This is a 67-year-old female with mild recurrent major depression and psoriatic arthritis that comes today for her Medicare wellness exam. Depression stable with medications. Psoriatic arthritis follow by dermatology and rheumatology. Mammogram done 2023 was normal. Colonoscopy done 2020 and next colonoscopy should be 2025. DEXA scan done 2 years ago showing osteoporosis and is on Prolia given by Rheumatology. Ppp handed to patient. No acute complaints. [facility] Medical History (Updated 09/27/23 @ 20:07 by Rosalie Oneil MD) GABINO (generalized anxiety disorder) Mild recurrent major depression Upper respiratory infection Right hand pain Lumbar pain Sacral pain Compression fracture Otitis Osteoporosis Psoriatic arthritis Obesity HTN (hypertension) Psoriasis Osteoarthritis Surgical History (Updated 09/27/23 @ 14:57 by Rosalie Oneil MD) S/P rotator cuff repair H/O toe surgery History of colonoscopy History of total left knee replacement (TKR) History of tonsillectomy History of hysterectomy History of total right knee replacement (TKR) Family History (Updated 09/27/23 @ 14:57 by Rosalie Oneil MD) Father No problems noted. Mother Mental health disorder Family/Other Substance use disorder Social History Housing: House Alcohol intake: current Alcohol intake frequency: holidays/special occasions only Alcohol type: hard liquor and other Patient Tobacco Use Status: Former Tobacco user Tobacco use type: Cigarette Cigarettes Per Day: 30 Years Smoked: 40 e-Cigarette/Vaping Use: Never Used Second Hand Smoke Exposure: No service: No Current occupational status: retired Current occupation: left hand Cognitive needs: No Hearing needs: No Vision needs: Yes Questionnaire Medicare Wellness Checkup What [age] What gender do you identify with?: female During the past 4 weeks, how much have you been bothered by emotional problems such as feeling anxious, depressed, irritable, sad or downhearted, and blue?: slightly During the past 4 weeks, has your physical & emotional health limited your social activities with family, friends, neighbors, or groups?: not at all During the past 4 weeks, how much bodily pain have you generally had?: very mild pain During the past 4 weeks, was someone available to help you if you needed & wanted help?: yes, some During the past 4 weeks, what was the hardest physical activity you could do for at least 2 minutes?: moderate Can you get to places out of walking distance without help? (For eg., can you travel alone on buses, taxis or drive your car?): Yes Can you go shopping for groceries or clothes without someone's help?: Yes Can you prepare your own meals?: Yes Can you do your housework without help?: Yes Because of any health problems, do you need the help of another person with your personal care needs such as eating, bathing, dressing or getting around the house?: No Can you handle your own money without help?: Yes During the past 4 weeks, how would you rate your health in general?: very good During the past 4 weeks how have things been going for you?: pretty well Are you having difficulties driving your car?: no Do you always fasten your seat belt when you are in a car?: yes, sometimes During past 4 weeks, have you been bothered by the following: never: Sexual problems?, Trouble eating well?, Teeth or denture problems? and Problems using the telephone?, seldom: Falling or dizzy when standing up and sometimes: Tiredness or fatigue? Have you fallen 2 or more times in the past year?: No Are you afraid of falling?: Yes Are you a smoker?: no During the past 4 weeks, how many drinks of wine, beer, or other alcoholic beverages did you have?: 1 drink or less per week Do you exercise for about 20 minutes 3 or more times a week?: no, I usually do not exercise this much Have you been given information to help with the following?: yes: Hazards in your house that might hurt you? and yes: Keeping track of your medications? How often do you have trouble taking medicines the way you have been told to take them?: I always take medicine as prescribed How confident are you that you can control & manage most of your health problems?: very confident What is your race?: White Mini Mental State Exam (MMSE) Orientation What is the (year) (season) (date) (day) (month)?: year, season, date, day and month Where are we (state) (county) (town or city) (hospital) (floor)?: state, county, town or city, hospital/clinic and floor Registration Name of 3 unrelated objects clearly and slowly, then ask patient to repeat all 3 of them. (1st repeat determines score. Make sure they can repeat all three): object 1, object 2 and object 3 Attention & Calculation (CHOOSE ONE) Spell WORLD backwards (DLROW): 5 letters Recall Ask patient to repeat the 3 items from question #3.: object 1, object 2 and object 3 Language Show patient a wristwatch & ask what it is. Repeat for pencil.: watch and pencil Ask the patient to repeat the phrase 'No ifs, ands, or buts' after you.: correct Ask the patient to 'take a piece of paper with their right hand' 'fold paper in half' 'place paper on floor': take paper in right hand, fold paper in half and place paper on floor Print the sentence 'CLOSE YOUR EYES' on a piece. If patient actually closes eyes then score.: followed written direction Give patient a blank piece of paper & ask to write a sentence. Score if it contains a noun & verb.: sentence contains subject and verb Score Score: 29 Activity of Daily Living Bathing - sponge bath, tub bath or shower: receives no assistance (gets in/out by self, if usual bathing means Dressing - getting clothes from closets & drawers, including inner/outer garments & fasteners.: gets clothes & gets completely dressed without help Toileting - going to the 'toilet room' for urine/bowel elimination & cleaning self/arranging clothes: goes to toilet room, cleans self, arranges clothes without help Transfer: moves in & out of bed and chair without help (may use support object) Continence: controls urination/bowel movements completely by self Feeding: feeds self without help Total Score: 0 Information obtained from: patient Using telephone: independent Traveling: independent Shopping: independent Preparing meals: independent Housework: independent Taking medicine: independent Managing money: independent PHQ-9 Over the last 2 weeks, how often have you been bothered by any of the following problems? 1. Little interest or pleasure in doing things: several days 2. Feeling down, depressed, or hopeless: several days 3. Trouble falling or staying asleep, or sleeping too much: more than half the days 4. Feeling tired or having little energy: more than half the days 5. Poor appetite or overeating: not at all 6. Feeling bad about yourself - or that you are a failure or have let yourself or your family down: not at all 7. Trouble concentrating on things, such as reading the newspaper or watching television: not at all 8. Moving or speaking so slowly that other people could have noticed. Or the opposite - being so fidgety or restless that you have been moving around a lot more than usual: not at all 9. Thoughts that you would be better off or of hurting yourself in some way: not at all Total score: 6 Depression Screening Interpretation: Positive Depression Screening Follow-up: Existing condition, In treatment and Follow-up Visit Requested Depression Screening Done: Yes 41020 - PHQ-9 Billing: Yes Source: Developed by Drs. Ruben Abel, Regla Saleh, Rome Jurado and colleagues, with an educational jermaine from [employer] AUDIT C Alcohol Use Questionnaire (AUDIT-C) 1. How often do you have a drink containing alcohol?: Monthly or less 2. How many drinks containing alcohol do you have on a typical day when you are drinking?: 1 or 2 3. How often do you have six or more drinks on one occasion?: Never Total Score: 1 Score Reviewed/Action Taken: No Thrive Questionnaire Date Thrive assessed: 09/27/23 I am a: Patient What is your living situation today?: I have a steady place to live Within the past 12 months, did the food you bought not last and you didn't have the money to get more?: Never true Within the past 12 months, did you worry whether your food would run out before you got money to buy more?: Never true Do you have trouble paying for medicines?: No Do you have trouble getting transportation to medical appointments?: No Do you have trouble paying your heating and electricity bill?: No Do you have trouble taking care of your child, family member or friend?: No Do you have trouble with day-to-day activities such as bathing, preparing meals, shopping, managing finances, etc.?: No Are you currently unemployed and looking for a job?: No Are you interested in more education?: No Please select the resources that you would like help with: None Currently or been in a relationship where the following occur: No concerns reported THRIVE Score: 0 Fall Risk Assessment Fall Risk Assessment Fall risk assessment: 1 Fall in past year GABINO-7 AMB Questionnaire GABINO-7 Date GABINO - 7 assessed: 09/27/23 Feeling nervous, anxious, or on edge: 0 = Not at all Not being able to stop or control worryin = Not at all Worrying too much about different things: 0 = Not at all Trouble relaxin = Not at all Being so restless that it is hard to sit still: 0 = Not at all Becoming easily annoyed or irritable: 0 = Not at all Feeling afraid as if something awful might happen: 0 = Not at all Total GABINO-7 score (0-4 normal; 5-9 mild; 10-14 moderate; 15-21 severe): 0 Source: Developed by Drs. Ruben Abel, Regla Saleh, Rome Jurado and colleagues, with an educational jermaine from [employer] GABINO-7 Assessment Billing GABINO-7 Assessment Tool: GABINO-7 Assessment 58949 Review of Systems Const All systems reviewed & are unremarkable except as noted in HPI and below Card Denies chest pain at rest, Denies chest pain with activity, Denies edema, Denies irregular heart rhythm, Denies claudication, Denies dyspnea, Denies dyspnea on exertion, Denies orthopnea, Denies paroxysmal nocturnal dyspnea and Denies slow heart rate Resp Denies cough, Denies dyspnea and Denies dyspnea on exertion Neuro Denies confusion Psych Denies confusion Physical Exam Vital Signs: Last Vital Signs BP 118/68 09/27/23 14:31 BMI result Body Mass Index 34.9 Const General: No confusion Orientation/consciousness: patient oriented x3 and No confusion Resp Effort & Inspection: normal respiratory effort Auscultation: clear to auscultation bilaterally Cardio Jugular venous distension: no JVD Rate: regular rate Rhythm: regular rhythm Heart sounds: S1 normal heart sound present and S2 normal heart sound present Neuro General: patient oriented x3, no focal motor deficits and No confusion Extrem General: Yes full ROM Psych Appearance: grossly normal Immunizations tetanus-diphtheria toxoids-Td 2 Lf unit-2 Lf unit/0.5 mL IM suspension Performing Provider: Rosalie Oneil MD Performing Location: [facility] Administered by: CECY Gan on 09/27/23 15:33 Dose Route Admin Location Dispensed Lot Number Expiration Date NDC Singe Winder 0.5 mL IM Right Deltoid 0.5 mL [id number] 04/02/24 [address]-7 [employer] VIS Given Date VIS Provided VIS Publication Date 09/27/23 Single Vaccine 20 Eligibility Eligibility Date Funding Source Not VFC Eligible 09/27/23 State funds Assessment & Plan Assessment & Plan (1) Encounter for Medicare annual wellness exam: Code(s): Z00.00 - Encounter for general adult medical examination without abnormal findings Plan: Repeat in a year. (2) Mild recurrent major depression: Code(s): F33.0 - Major depressive disorder, recurrent, mild Plan: Continue bupropion. (3) Psoriatic arthritis: Comment: Enbrel 02/2020- injection site reaction after 2 injections switch to Humira 03/2020. Humira discontinued due to injection site reaction. Orencia 11/2020-March 2022, no longer covered by insurance company, appeal was denied. Methotrexate 10/2014- March 2022, self stopped by patient Skyrizi 06/2022-present effective Code(s): L40.50 - Arthropathic psoriasis, unspecified Plan: Continue skyrizi. Follow-up with dermatology. Orders: Orders Td State Immunization Today Z23 - Encounter for immunization Lipid Panel Today E78.5 - Hyperlipidemia, unspecified Comprehensive [place]. Panel Fast Today I10 - Essential (primary) hypertension Medications: Refilled lorazepam 0.5 mg PO BEDTIME 30 days PRN 30 tabs 0RF anxiety tramadol 50 mg PO BEDTIME PRN 10 tabs 1RF pain Quality Reporting (2019) Fall Risk Screening ([facility] 139) Fall risk assessment: 1 Fall in past year Depression/Bipolar (159/160/161/177) PHQ-9: Total score: 6 Coding Level of Care Code Medicare Subsequent (G0439) Diagnoses Encounter for Medicare annual wellness exam Z00.00 Mild recurrent major depression F33.0 Psoriatic arthritis L40.50 Additional Codes GABINO-7 Assessment Billing - GABINO-7 Assessment Tool: GABINO-7 Assessment 98036 ([id number]) Time Spent (min) 40
[2023-09-27 14:31] VITALS: BP 118/68; BMI 34.9
== END 2023-09-27 15:30 | disposition home or self-care (01) ==
PROVIDERS: PCP Internal Medicine; Visit Provider Internal Medicine
DX: Z00.00 Encounter for general adult medical examination without abnormal findings (principal); F33.0 Major depressive disorder, recurrent, mild; L40.50 Arthropathic psoriasis, unspecified; Z23 Encounter for immunization
CPT/HCPCS: 90471; 90714; G0439

== ENCOUNTER 2023-10-27 08:20 | Outpatient (AMB) | payer MEDICARE, MEDICAID, SELFPAY ==
[2023-10-27 08:24] VITALS: BP 124/84; PULSE 76; TEMP 36.9; O2SAT 98; BMI 35.1
--- NOTE | 2023-10-27 08:24 | AM.OFFWIN_ITS ---
Intake Vital Signs 10/27/23 08:24 Height 4 ft 7.5 in Weight 154 lb BMI 35.1 BP 124/84 Blood Pressure Location Rt brachial Position Sitting Pulse 76 Pulse Source Pulse Oximeter Temp 98.4 F Temp Source Oral Pulse Oximetry (%) 98 Oxygen Delivery Method Room Air Intake Visit Reasons: EP-back was bited, fatigue, stomach issue Intake Note: pt c/o insect bites on back, fatigue and stomach issues. Started Tuesday Patient Tobacco Use Status: Former Tobacco user Allergies etanercept [From Enbrel] Allergy (Severe, Verified 10/27/23 08:31) rash Seasonal Allergies Allergy (Severe, Verified 10/27/23 08:31) Rash adalimumab [From Humira] Allergy (Intermediate, Verified 10/27/23 08:31) Rash Do you need a note to return to daycare/school/sports/work: No HPI HPI Comments History of Present Illness Details Patient is a 67-year-old female complaining of for bug bites on her ba ck that have been extremely itchy. She states her daughter is a psych nurse and she looked at them and she wanted her to come to an urgent care clinic to have them evaluated. She states she has been scratching them with a back electronic warfare specialist. [facility] Medical History (Updated 10/27/23 @ 09:04 by Violeta Aviles PA-C) GABINO (generalized anxiety disorder) Mild recurrent major depression Upper respiratory infection Right hand pain Lumbar pain Sacral pain Compression fracture Otitis Osteoporosis Psoriatic arthritis Obesity HTN (hypertension) Psoriasis Osteoarthritis Surgical History (Updated 09/27/23 @ 14:57 by Rosalie Oneil MD) S/P rotator cuff repair H/O toe surgery History of colonoscopy History of total left knee replacement (TKR) History of tonsillectomy History of hysterectomy History of total right knee replacement (TKR) Family History (Updated 09/27/23 @ 14:57 by Rosalie Oneil MD) Father No problems noted. Mother Mental health disorder Family/Other Substance use disorder Social History Housing: House Alcohol intake: current Alcohol intake frequency: holidays/special occasions only Alcohol type: hard liquor and other Patient Tobacco Use Status: Former Tobacco user Tobacco use type: Cigarette Cigarettes Per Day: 30 Years Smoked: 40 e-Cigarette/Vaping Use: Never Used Second Hand Smoke Exposure: No service: No Current occupational status: retired Current occupation: left hand Cognitive needs: No Hearing needs: No Vision needs: Yes Review of Systems Const All systems reviewed & are unremarkable except as noted in HPI and below Physical Exam Vital Signs: Last Vital Signs Temp 98.4 F 10/27/23 08:24 Pulse 76 10/27/23 08:24 BP 124/84 10/27/23 08:24 Pulse Ox 98 10/27/23 08:24 Oxygen Delivery Method Room Air 10/27/23 08:24 BMI result Body Mass Index 35.1 Const General: cooperative, healthy appearing, comfortable and no acute distress Orientation/consciousness: patient oriented x3 Limitations: no limitations HEENT Head: Yes normal to inspection Eyes General: appearance normal, both eyes and all related structures Resp Effort & Inspection: normal respiratory effort and able to speak in complete sentences Skin Other: on the back, 4 crusted 1cm areas with scant erythema surrounding, no warmth, no drainage, no induration, no ecchymosis noted. Neuro General: patient oriented x3 Assessment & Plan Assessment & Plan (1) Bug bite without infection: Code(s): W57.XXXA - Bitten or stung by nonvenomous insect and other nonvenomous arthropods, initial encounter Qualifiers: Encounter type: initial encounter Qualified Code(s): W57.XXXA - Bitten or stung by nonvenomous insect and other nonvenomous arthropods, initial encounter Plan: We will send hydroxyzine to pharmacy for itching, recommended applying Aquaphor twice daily and to try to abstain from scratching. Plan see above Medications: New hydroxyzine HCl 10 mg PO QID PRN 7 tabs 0RF itching Coding Level of Care Code Est Pt Level 3 (75341) Diagnoses Bug bite without infection, initial encounter W57.XXXA Encounter type: initial encounter
== END 2023-10-27 10:08 | disposition home or self-care (01) ==
PROVIDERS: PCP Internal Medicine; Visit Provider Physician Assistant
DX: T63.481A Toxic effect of venom of other arthropod, accidental (unintentional), initial encounter (principal)
CPT/HCPCS: 99213

== ENCOUNTER 2024-01-10 10:56 | Outpatient (AMB) | payer MEDICARE, MEDICAID, SELFPAY ==
[2024-01-10 11:01] VITALS: BP 126/82; BMI 35.6
--- NOTE | 2024-01-10 11:01 | MHC.PC.OV ---
Vital Signs 01/10/24 11:01 Height 4 ft 7.5 in Weight 156 lb BMI 35.6 BP 126/82 Blood Pressure Location Lt brachial Position Sitting Intake Visit Reasons: PainOnRightSideOfBack Intake Note: Patient here for right side back pain, headaches Christmas Bell Ringer Required: No Accompanied by: Self / Same As Patient Allergies etanercept [From Enbrel] Allergy (Severe, Verified 01/10/24 11:16) rash Seasonal Allergies Allergy (Severe, Verified 01/10/24 11:16) Rash adalimumab [From Humira] Allergy (Intermediate, Verified 01/10/24 11:16) Rash Medication List - Last Reconciled 01/10/24 by Rosalie Oneil MD amlodipine 10 mg PO DAILY bupropion HCl SR 150 mg PO DAILY 90 days calcium carbonate-vitamin D3 600 mg-25 mcg (1,000 unit) patient takes 2 caps daily denosumab (Prolia) 60 mg subcut [id number] diclofenac sodium 1% (Arthritis Pain (diclofenac)) 4 grams topical QID PRN epinephrine (EpiPen 2-Celso) 0.3 mg (0.3 mL) IM ONCE PRN fluticasone propionate 0.05% 1 appl topical DAILY PRN fluticasone propionate 110 mcg/actuation 2 puffs inhalation BID PRN fluticasone propionate 50 mcg/actuation 1 spray intranasal BID PRN gabapentin 300 mg PO DAILY hydroxyzine HCl 10 mg PO QID PRN lorazepam 0.5 mg PO BEDTIME PRN 30 days ramipril 10 mg PO DAILY 90 days risankizumab-rzaa (Skyrizi) 150 mg subcut Q12W tramadol 50 mg PO BEDTIME PRN Tobacco use date assessed: 01/10/24 Fall risk assessment: No Falls in past year Last assessed Fall Risk: 01/10/24 Dental Screening Dental Screen Date: 01/10/24 Did you have a dental visit in the last 12 months?: Yes Did you have a dental problem in the last 6 months where you did not have access to dental care?: No Was dental information given to patient?: Patient has dentist HPI HPI Comments History of Present Illness Details The patient is a 68-year-old female presenting with fatigue and right-sided back pain. The symptoms began on Tuesday, when the patient was unable to get out of bed due to severe weakness and chills, suggestive of a fever which was not measured. The fatigue persisted through Tuesday and Tuesday and showed slight improvement. However, on Tuesday, the patient experienced a recurrence of the pain located on the right lower back. The pain does not radiate to the legs. There are no associated urinary complaints such as dysuria, but the patient notes a personnel psychologist color and bubbly appearance of urine. The fatigue has been significant enough to impede usual activities, such as caring for a pet. The patient also reports recent onset headaches since the development of these symptoms, located in the frontal region and accompanied by a sensation of pressure in the ears. No nausea, vomiting, or generalized joint pain were reported. The patient has ongoing management for multiple conditions, including psoriatic arthritis, hypertension, anxiety, depression, and osteoporosis, with a stable medication regimen. All chronic conditions has been stable with medications. [facility] Medical History GABINO (generalized anxiety disorder) Mild recurrent major depression Upper respiratory infection Right hand pain Lumbar pain Sacral pain Compression fracture Otitis Osteoporosis Psoriatic arthritis Obesity HTN (hypertension) Psoriasis Osteoarthritis Surgical History S/P rotator cuff repair H/O toe surgery History of colonoscopy History of total left knee replacement (TKR) History of tonsillectomy History of hysterectomy History of total right knee replacement (TKR) Family History Father No problems noted. Mother Mental health disorder Family/Other Substance use disorder Social History Housing: House Alcohol intake: current Alcohol intake frequency: holidays/special occasions only Alcohol type: hard liquor and other Patient Tobacco Use Status: Former Tobacco user Tobacco use type: Cigarette Cigarettes Per Day: 30 Years Smoked: 40 e-Cigarette/Vaping Use: Never Used Second Hand Smoke Exposure: No service: No Current occupational status: retired Current occupation: left hand Cognitive needs: No Hearing needs: No Vision needs: Yes Questionnaire Thrive Questionnaire Date Thrive assessed: 09/27/23 AUDIT C Alcohol Use Questionnaire (AUDIT-C) 2. How many drinks containing alcohol do you have on a typical day when you are drinking?: 1 or 2 3. How often do you have six or more drinks on one occasion?: Never Total Score: 0 GABINO-7 AMB Questionnaire GABINO-7 Date GABINO - 7 assessed: 09/27/23 Source: Developed by Drs. Ruben Abel, Regla Saleh, Rome Jurado and colleagues, with an educational jermaine from [employer]. Review of Systems Const All systems reviewed & are unremarkable except as noted in HPI and below Card Denies chest pain at rest, Denies chest pain with activity, Denies edema, Denies irregular heart rhythm, Denies claudication, Denies dyspnea, Denies dyspnea on exertion, Denies orthopnea, Denies paroxysmal nocturnal dyspnea and Denies slow heart rate Resp Denies cough, Denies dyspnea and Denies dyspnea on exertion Physical exam (Primary Care) Vital Signs: Last Vital Signs BP 126/82 01/10/24 11:01 BMI result Body Mass Index 35.6 BMI Assessment/Plan discussion: High BMI High, discussed plan: lifestyle, weight reduction, dietary and physical activity Tobacco/Smoking Status: Tobacco use Status Tobacco use date assessed 01/10/24 01/10/24 11:10 Patient Tobacco Use Status Former Tobacco user 01/10/24 11:02 Tobacco use type Cigarette 01/10/24 11:02 e-Cigarette/Vaping Use Never Used 01/10/24 11:02 Thrive Assessment: Date of Thrive Assessment Date Thrive assessed 09/27/23 01/10/24 11:02 HENMT Ears: hearing grossly normal bilaterally Resp Effort & Inspection: normal respiratory effort Auscultation: clear to auscultation bilaterally Cardio Jugular venous distension: no JVD Rate: regular rate Rhythm: regular rhythm Heart sounds: S1 normal heart sound present and S2 normal heart sound present Back/Spine/Pelvis Thoracic/Lumbar Spine: straight leg raise negative bilaterally Extrem General: Yes full ROM Office Procedures Flu Questionnaire Does the patient have a severe egg allergy?: No Results AMB Urinalysis, Automated UA Leukoctes 0 Dario/uL Last Edit by CECY Gan on 01/10/24 12:07 UA Nitrite Negative Last Edit by CECY Gan on 01/10/24 12:07 UA Urobilinogen 0.2 mg/dL Last Edit by CECY Gan on 01/10/24 12:07 UA Protein 0 mg/dL Last Edit by Eze Canseco, RMA on 01/10/24 12:07 UA pH 6.0 Last Edit by Eze Canseco, RMA on 01/10/24 12:07 UA Blood 0 Kang/uL Last Edit by Eze Canseco, RMA on 01/10/24 12:07 UA Specific [place] 1.025 Last Edit by Eze Canseco, MARYAMA on 01/10/24 12:07 UA Ketone Negative Last Edit by Eze Canseco, RMA on 01/10/24 12:07 UA Bilirubin 0 mg/dL Last Edit by Eze Canseco, RMA on 01/10/24 12:07 UA Glucose 0 mg/dL Last Edit by Eze Canseco, MARYAMA on 01/10/24 12:07 Immunizations Fluarix Triv [id number] (PF) 45 mcg (15 mcg x 3)/0.5 mL IM syringe Performing Provider: Rosalie Oneil MD [facility] Documented (not given) by: Eze Canseco MARYAMBrinda on 01/10/24 12:08 Reason Not Given: Not Given Results Reviewed Results Reviewed: Laboratory Last Values Urine pH (Auto) 6.0 01/10/24 12:04 Specific [place] (Auto) 1.025 01/10/24 12:04 Urine Protein (Auto) 0 mg/dL 01/10/24 12:04 Glucose (UA)(Auto) 0 mg/dL 01/10/24 12:04 Urine Ketones (Auto) Negative 01/10/24 12:04 Urine Blood (Auto) 0 Kang/uL 01/10/24 12:04 Urine Nitrite (Auto) Negative 01/10/24 12:04 Urine Bilirubin (Auto) 0 mg/dL 01/10/24 12:04 Urine Urobilinogen (Auto) 0.2 mg/dL 01/10/24 12:04 Leukocyte Esterase (Auto) 0 Dario/uL 01/10/24 12:04 Coding Level of Care Code Est Pt Level 4 (44952) Complex EM visit Add On G2211 Diagnoses Fatigue R53.83 Mild recurrent major depression F33.0 HTN (hypertension) I10 GABINO (generalized anxiety disorder) F41.1 Psoriatic arthritis L40.50 Age-related osteoporosis without current pathological fracture M81.0 Osteoporosis type: age-related Presence of current pathological fracture: without current pathological fracture Time Spent (min) 24 Assessment & Plan Assessment & Plan (1) Fatigue: Code(s): R53.83 - Other fatigue Category: Medical (2) Mild recurrent major depression: Code(s): F33.0 - Major depressive disorder, recurrent, mild Category: Medical (3) HTN (hypertension): Code(s): I10 - Essential (primary) hypertension Category: Medical (4) GABINO (generalized anxiety disorder): Code(s): F41.1 - Generalized anxiety disorder Category: Medical (5) Psoriatic arthritis: Comment: Enbrel 02/2020- injection site reaction after 2 injections switch to Humira 03/2020. Humira discontinued due to injection site reaction. Orencia 11/2020-March 2022, no longer covered by insurance company, appeal was denied. Methotrexate 10/2014- March 2022, self stopped by patient Ednacrowdavid 06/2022-present effective Code(s): L40.50 - Arthropathic psoriasis, unspecified Category: Medical (6) Osteoporosis: Comment: 10/2017 osteoporosis T score-2.5 in the femoral neck. 10/2019 Osteopenia based on lowest T-score of-2.1 in the femoral neck. 04/01/2022 osteopenia: T-score -2.4 in the femoral neck. Bone mass density values have increased 4.1% from previous and 23.7% from baseline in the spine; 3.4% from previous and 3.9% from baseline in the hip; 1% from previous and 3.5% from baseline in the femoral neck. Fosamax: prior to 2014 - stopped due to GI upset Reclast 2014- exact dates unknown Prolia 05/27/2015- present Code(s): M81.0 - Age-related osteoporosis without current pathological fracture Category: Medical Qualifiers: Osteoporosis type: age-related Presence of current pathological fracture: without current pathological fracture Qualified Code(s): M81.0 - Age-related osteoporosis without current pathological fracture Plan - Fatigue and Right-sided Abdominal Pain: Order blood work and urine analysis to evaluate for potential underlying infections, anemia, electrolyte imbalances, or dysfunction. - Psoriatic Arthritis: Continue current medication regimen. Monitor for worsening symptoms. - Osteoporosis: Continue Prolia for management. - Hypertension: Continue use of Amlodipine and Ramipril for blood pressure control. - Anxiety and Depression: Maintain current medications; follow up on symptom progression. Patient was informed and verbally consented to the use of an ambient scribe for clinic note documentation during this visit. I discussed with the patient the plan to conduct blood work and a urine test to investigate the underlying cause of her fatigue and right-sided abdominal pain. Potential findings such as infection or kidney issues were mentioned. I explained that these tests would help in identifying conditions such as an infection, which can present with symptoms like fatigue and changes in urination. I reassured the patient that if the symptoms fail to improve or worsen, further investigative steps will be taken. We reviewed the continued management of her psoriatic arthritis, osteoporosis, hypertension, anxiety, and depression, emphasizing the importance of adhering to her current medication regimen. Orders: Orders Thyroid Stimulating Hormone Today R53.83 - Other fatigue Vitamin B12 and Folate Today E53.8 - Deficiency of other specified B group vitamins Vitamin D 25-OH Total Today E55.9 - Vitamin D deficiency, unspecified Complete Blood Count Auto Diff Today R53.83 - Other fatigue Comprehensive Met. Panel Today R53.83 - Other fatigue Patient Instructions: - Undergo blood work and urine analysis as discussed. - Continue current medication regimen as prescribed. - Monitor symptoms and return for a follow-up if symptoms persist or worsen.
== END 2024-01-10 11:31 | disposition home or self-care (01) ==
PROVIDERS: PCP Internal Medicine; Visit Provider Internal Medicine
DX: R53.83 Other fatigue (principal); F33.0 Major depressive disorder, recurrent, mild; L40.50 Arthropathic psoriasis, unspecified; I10 Essential (primary) hypertension; F41.1 Generalized anxiety disorder; M81.0 Age-related osteoporosis without current pathological fracture; M54.9 Dorsalgia, unspecified

== ENCOUNTER 2024-01-10 10:56 | Outpatient (REF) | payer MEDICARE, MEDICAID, SELFPAY ==
[2024-01-10 12:06] LABS: MANUAL DIFF FLAG NO
[2024-01-10 12:16] LABS: Basophils Absolute Auto 0.1 X10*3/uL (0.0-0.2); Basophils Percent Auto 0.8 % (0-2); Eosinophils Absolute Auto 0.2 X10*3/uL (0.0-0.4); Eosinophils Percent Auto 2.1 % (0-4); Hematocrit 43.6 % (37.0-47.0); Hemoglobin 13.8 g/dl (12.0-16.0); Imm Gran Abs Auto 0.07 X10*3/uL (0.00-0.03); Lymphocytes Absolute Auto 1.8 X10*3/uL (1.2-4.9); Mean Corpuscular HGB Conc 31.7 g/dl (31.0-35.0); Mean Corpuscular Hemoglobin 25.2 pg (27.0-33.0); Mean Corpuscular Volume 79.7 fL (80.0-98.0); Mean Platelet Volume 9.7 fL (9.4-12.3); Monocytes Absolute Auto 0.6 X10*3/uL (0.1-1.2); Monocytes Percent Auto 8.6 % (2-11); Neutrophils Absolute Auto 4.6 x10*3/uL (2.0-8.3); Neutrophils Percent Auto 63.5 % (45-73); Platelet Count 240 X10*3/uL (160-400); Red Blood Count 5.47 X10*6/uL (4.20-5.50); Red Cell Distribution Width 15.7 % (11.0-16.0); White Blood Count 7.3 X10*3/uL (4.8-10.8)
[2024-01-10 12:48] LABS: Alanine Aminotransferase 18 U/L (0-31); Albumin Level 4.1 g/dL (3.5-5.0); Alkaline Phosphatase 73 U/L (39-117); Anion Gap 8 (12-20); Aspartate Amino Transferase 26 U/L (5-31); Bilirubin Total 0.3 mg/dL (0.0-1.0); Blood Urea Nitrogen 16 mg/dL (9-16); Calcium 8.5 mg/dL (8.4-10.2); Carbon Dioxide 30 mmol/L (22-29); Chloride 109 mmol/L (96-108); Cholesterol 218 mg/dL (<200); Estimated Glomerular Filt Rate > 60; Glucose Fasting 85 mg/dL (60-99); Glucose Random 85 mg/dL (60-115); HDL Cholesterol 59 mg/dL (>40); LDL Cholesterol Calculated 129 mg/dL (<100); Potassium 4.3 mmol/L (3.3-5.1); Sodium 143 mmol/L (135-145); Total Protein 7.2 g/dL (6.5-8.0); Triglycerides 151 mg/dL (<150)
[2024-01-10 13:06] LABS: Thyroid Stimulating Hormone 1.67 uIU/mL (0.32-4.0); Vitamin D 25-OH Total 42.7 ng/mL (>30)
[2024-01-10 13:20] LABS: Folate 7.2 ng/mL (> or = 4.0); Vitamin B12 629 pg/mL (200-900)
== END 2024-01-10 10:57 | disposition home or self-care (01) ==
LOC: HO.LAB 10:56
PROVIDERS: PCP Internal Medicine; Visit Provider Internal Medicine
DX: Z01.818 Encounter for other preprocedural examination (principal); E78.5 Hyperlipidemia, unspecified; R53.83 Other fatigue; E53.8 Deficiency of other specified B group vitamins; E55.9 Vitamin D deficiency, unspecified
CPT/HCPCS: 36415; 80053; 80061; 81003; 82306; 82607; 82746; 84443; 85025; 99212

== ENCOUNTER 2024-02-27 11:13 | Outpatient (REF) | payer MEDICARE, MEDICAID, SELFPAY ==
[2024-02-27 12:53] LABS: Anion Gap 12 (12-20); Blood Urea Nitrogen 26 mg/dL (9-16); Calcium 9.4 mg/dL (8.4-10.2); Carbon Dioxide 34 mmol/L (22-29); Chloride 106 mmol/L (96-108); Estimated Glomerular Filt Rate 49; Glucose Random 91 mg/dL (60-115); Potassium 4.5 mmol/L (3.3-5.1); Sodium 147 mmol/L (135-145)
[2024-03-03 13:23] LABS: Vitamin D 25-OH, D2 <4 ng/mL; Vitamin D 25-OH, D3 38 ng/mL; Vitamin D 25-OH, Total 38 ng/mL (30-100)
== END 2024-02-27 11:14 | disposition home or self-care (01) ==
LOC: HO.LAB 11:13
PROVIDERS: PCP Internal Medicine; Visit Provider Student in an Organized Health Care Education/Training Program
DX: M81.0 Age-related osteoporosis without current pathological fracture (principal); E55.9 Vitamin D deficiency, unspecified; Z23 Encounter for immunization
CPT/HCPCS: 36415; 80048; 82306; 90471; 90656

== ENCOUNTER 2024-02-27 11:44 | Outpatient (AMB) | payer MEDICARE, MEDICAID, SELFPAY ==
--- NOTE | 2024-02-27 11:56 | AM.OFFVISNUR ---
Intake Visit Reasons: flu shot Allergies etanercept [From Enbrel] Allergy (Severe, Verified 01/10/24 11:16) rash Seasonal Allergies Allergy (Severe, Verified 01/10/24 11:16) Rash adalimumab [From Humira] Allergy (Intermediate, Verified 01/10/24 11:16) Rash Office Procedures Flu Questionnaire Does the patient have a severe egg allergy?: No Does the patient have severe life threatening allergies?: No Does the patient have a fever or illness today?: No Has the patient ever had Guillain-Burchard Syndrome?: No Has the patient ever had any past reaction to a flu shot?: No Immunizations Fluarix Triv [id number] (PF) 45 mcg (15 mcg x 3)/0.5 mL IM syringe Performing Provider: Rosalie Oneil MD [facility] Administered by: Janet Andre RN on 02/27/24 11:56 Dose Route Admin Location Dispensed Lot Number Expiration Date [facility] [employer] 0.5 mL IM Left Deltoid 0.5 mL [id number] 08/20/24 [id number] [facility] V[facility] Given Date VIS Provided VIS Publication Date 02/27/24 Single Vaccine 20 Eligibility Eligibility Date Funding Source Not [facility] Eligible 02/27/24 Private Assessment & Plan Assessment & Plan Orders: Orders Influenza [id number] Immunization Today Z23 - Encounter for immunization Medications: New Fluarix Triv (PF) (flu vacc [id number] 6mos up(PF)) 0.5 mL IM ONCE 0.5 mL 0RF NS Z23 - Encounter for immunization
== END 2024-02-27 11:57 | disposition home or self-care (01) ==
PROVIDERS: PCP Internal Medicine; Visit Provider Internal Medicine
DX: Z23 Encounter for immunization (principal)

== ENCOUNTER 2024-03-01 10:12 | Outpatient (AMB) | payer MEDICARE, MEDICAID, SELFPAY ==
[2024-03-01 10:13] VITALS: BP 150/98; PULSE 78; BMI 35.9
--- NOTE | 2024-03-01 10:13 | A.OFFVIS_ITS ---
Vital Signs 03/01/24 10:13 Height 4 ft 7.5 in Weight 157 lb 6.561 oz BMI 35.9 BP 150/98 H Blood Pressure Location Rt brachial Position Sitting Pulse 78 Pulse Source Pulse Oximeter Intake Visit Reasons: Osteoporosis follow up & prolia inj Intake Note: Patient last seen by Doctor Lazarus Escoto on 08/29/23. Presents today for Osteoporosis follow up and Prolia injection. Doughnut Dough Mixer Required: No Accompanied by: Self / Same As Patient Allergies etanercept [From Enbrel] Allergy (Severe, Verified 03/01/24 10:18) rash Seasonal Allergies Allergy (Severe, Verified 03/01/24 10:18) Rash adalimumab [From Humira] Allergy (Intermediate, Verified 03/01/24 10:18) Rash Medication List - Last Reconciled 03/01/24 by Lazarus Escoto MD amlodipine 10 mg PO DAILY bupropion HCl SR 150 mg PO DAILY 90 days calcium carbonate-vitamin D3 600 mg-25 mcg (1,000 unit) patient takes 2 caps daily denosumab (Prolia) 60 mg subcut [id number] diclofenac sodium 1% (Arthritis Pain (diclofenac)) 4 grams topical QID PRN epinephrine (EpiPen 2-Celso) 0.3 mg (0.3 mL) IM ONCE PRN fluticasone propionate 0.05% 1 appl topical DAILY PRN fluticasone propionate 110 mcg/actuation 2 puffs inhalation BID PRN fluticasone propionate 50 mcg/actuation 1 spray intranasal BID PRN gabapentin 300 mg PO DAILY hydroxyzine HCl 10 mg PO QID PRN lorazepam 0.5 mg PO BEDTIME PRN 30 days ramipril 10 mg PO DAILY 90 days risankizumab-rzaa (Skyrizi) 150 mg subcut Q12W tramadol 50 mg PO BEDTIME PRN HPI Comments Details: This is a 68-year-old female with psoriasis, psoriatic arthritis and osteoporosis who presents for follow-up. She was last seen 08/2023. She is here her Prolia injection Patient states that she is doing well overall. No new symptoms. She had a mechanical fall during the holidays when she tripped over her granddaughter's toy, she hurt her knee but nothing was broken. No psoriasis rashes. Remains on Skyrizi prescribed by Dermatology [facility] Medical History GABINO (generalized anxiety disorder) Mild recurrent major depression Upper respiratory infection Right hand pain Lumbar pain Sacral pain Compression fracture Otitis Osteoporosis Psoriatic arthritis Obesity HTN (hypertension) Psoriasis Osteoarthritis Surgical History S/P rotator cuff repair H/O toe surgery History of colonoscopy History of total left knee replacement (TKR) History of tonsillectomy History of hysterectomy History of total right knee replacement (TKR) Family History Father No problems noted. Mother Mental health disorder Family/Other Substance use disorder Social History Housing: House Alcohol intake: current Alcohol intake frequency: holidays/special occasions only Alcohol type: hard liquor and other Patient Tobacco Use Status: Former Tobacco user Tobacco use type: Cigarette Cigarettes Per Day: 30 Years Smoked: 40 e-Cigarette/Vaping Use: Never Used Second Hand Smoke Exposure: No service: No Current occupational status: retired Current occupation: left hand Cognitive needs: No Hearing needs: No Vision needs: Yes Review of Systems Musc Reports arthralgias Skin/Breast Denies rash Physical Exam Vital Signs: Last Vital Signs Pulse 78 03/01/24 10:13 BP 150/98 H 03/01/24 10:13 BMI result Body Mass Index 35.9 Const General: cooperative, healthy appearing, comfortable and no acute distress Orientation/consciousness: patient oriented x3 Limitations: no limitations HEENT Head: Yes normal to inspection Eyes General: appearance normal, both eyes and all related structures Resp Effort & Inspection: normal respiratory effort and able to speak in complete sentences Skin Other: Significant nail dystrophy Neuro General: patient oriented x3 Office Meds Prolia 60 mg/mL subcutaneous syringe Performing Provider: Lazarus Escoto MD [place] [facility] [place] [facility] Administered by: Ebony Alvarez RN on 03/01/24 10:29 Dose Route Admin Location Dispensed Lot Number Expiration Date [facility] Production Team Manager 60 mg subcut right upper arm 1 mL [id number] 08/20/26 68250-085-44 AMGEN Comments: consent form was signed by patient. tolerated injection well. denies any adverse reactions to previous injections. labs reviewed by md. Assessment & Plan Assessment & Plan (1) Psoriatic arthritis: Comment: Enbrel 02/2020- injection site reaction after 2 injections switch to Humira 03/2020. Humira discontinued due to injection site reaction. Orencia 11/2020-March 2022, no longer covered by insurance company, appeal wa s denied. Methotrexate 10/2014- March 2022, self stopped by patient Skyrizi 06/2022-present effective Code(s): L40.50 - Arthropathic psoriasis, unspecified Category: Medical Plan: This is a 68-year-old female with psoriasis and psoriatic arthritis who presents for follow-up. On Skyrizi prescribed by supervisor coremaker. She has no synovitis on exam today. She has chronic deformities related to psoriatic arthritis. Continue Skyrizi, continue to follow-up with supervisor coremaker. (2) Osteoporosis: Comment: 10/2017 osteoporosis T score-2.5 in the femoral neck. 10/2019 Osteopenia based on lowest T-score of-2.1 in the femoral neck. 04/01/2022 osteopenia: T-score -2.4 in the femoral neck. Bone mass density values have increased 4.1% from previous and 23.7% from baseline in the spine; 3.4% from previous and 3.9% from baseline in the hip; 1% from previous and 3.5% from baseline in the femoral neck. Fosamax: prior to 2014 - stopped due to GI upset Reclast 2014- exact dates unknown Prolia 05/27/2015- present Code(s): M81.0 - Age-related osteoporosis without current pathological fracture Category: Medical Qualifiers: Osteoporosis type: age-related Presence of current pathological fracture: without current pathological fracture Qualified Code(s): M81.0 - Age- related osteoporosis without current pathological fracture Plan: Last Prolia injection 08/2023. Patient received Prolia injection in the office today. Continue with vitamin-D supplementation. Next DEXA due March 2024. To decide future osteoporosis treatment next visit with Dr. Andre We discussed weight-bearing exercises Labs before next visit in 6 months Plan I spent 17 minutes reviewing patient's chart, evaluating patient, ordering diagnostic workup, counseling patient and documenting in the chart Orders: Orders AMB Denosumab Injection Practice Supplied Today M81.0 - Age-related osteoporosis without current pathological fracture Vitamin D 25-OH Total 6 Months M81.0 - Age-related osteoporosis without current pathological fracture XR DEXA axial skeleton 04/16/24 M81.0 - Age-related osteoporosis without current pathological fracture Collagen Type I C-Telopeptide 6 Months M81.0 - Age-related osteoporosis without current pathological fracture Basic Metabolic Panel 6 Months M81.0 - Age-related osteoporosis without current pathological fracture Coding Level of Care Code Est Pt Level 3 (02716) Diagnoses Psoriatic arthritis L40.50 Age-related osteoporosis without current pathological fracture M81.0 Osteoporosis type: age-related Presence of current pathological fracture: without current pathological fracture
== END 2024-03-01 10:39 | disposition home or self-care (01) ==
LOC: HO.RHE 10:12
PROVIDERS: PCP Internal Medicine; Visit Provider Student in an Organized Health Care Education/Training Program
DX: L40.50 Arthropathic psoriasis, unspecified (principal); M81.0 Age-related osteoporosis without current pathological fracture
CPT/HCPCS: 99213

== ENCOUNTER → 2024-03-01 10:12 | Outpatient (BNVA) | payer MEDICARE, MEDICAID, SELFPAY | PROVIDERS: PCP Internal Medicine; Visit Provider Student in an Organized Health Care Education/Training Program | DX: M81.0 Age-related osteoporosis without current pathological fracture (principal); L40.50 Arthropathic psoriasis, unspecified | CPT/HCPCS: 96372; 99212; J0897 ==

== ENCOUNTER 2024-03-05 11:13 | Outpatient (AMB) | payer MEDICARE, MEDICAID, SELFPAY ==
--- NOTE | 2024-03-05 11:15 | A.OFFPC_ITS ---
Vital Signs 03/05/24 11:17 Height 4 ft 7.5 in Weight 157 lb BMI 35.8 BP 136/80 Blood Pressure Location Lt brachial Position Sitting Intake Visit Reasons: depression Intake Note: Patient here for a follow up Depression Resident Care Provider Required: No Accompanied by: Self / Same As Patient Allergies etanercept [From Enbrel] Allergy (Severe, Verified 03/05/24 11:29) rash Seasonal Allergies Allergy (Severe, Verified 03/05/24 11:29) Rash adalimumab [From Humira] Allergy (Intermediate, Verified 03/05/24 11:29) Rash Medication List - Last Reconciled 03/05/24 by Rosalie Oneil MD amlodipine 10 mg PO DAILY bupropion HCl SR 150 mg PO DAILY 90 days calcium carbonate-vitamin D3 600 mg-25 mcg (1,000 unit) patient takes 2 caps daily denosumab (Prolia) 60 mg subcut [id number] diclofenac sodium 1% (Arthritis Pain (diclofenac)) 4 grams topical QID PRN epinephrine (EpiPen 2-Celso) 0.3 mg (0.3 mL) IM ONCE PRN fluticasone propionate 0.05% 1 appl topical DAILY PRN fluticasone propionate 110 mcg/actuation 2 puffs inhalation BID PRN fluticasone propionate 50 mcg/actuation 1 spray intranasal BID PRN gabapentin 300 mg PO DAILY hydroxyzine HCl 10 mg PO QID PRN lorazepam 0.5 mg PO BEDTIME PRN 30 days ramipril 10 mg PO DAILY 90 days risankizumab-rzaa (Skyrizi) 150 mg subcut Q12W tramadol 50 mg PO BEDTIME PRN Tobacco use date assessed: 03/05/24 Fall risk assessment: 1 Fall in past year Last assessed Fall Risk: 03/05/24 Dental Screening Dental Screen Date: 03/05/24 Did you have a dental visit in the last 12 months?: Yes Did you have a dental problem in the last 6 months where you did not have access to dental care?: No Was dental information given to patient?: Patient has dentist HPI HPI Comments History of Present Illness Details The patient is a 68-year-old female presenting with multiple chronic conditions and dermatological concerns. She has been diagnosed with essential hypertension and has been taking amlodipine 10 mg and ramipril 10 mg for management. The patient's blood pressure was reported as stable at this visit. Depression is another chronic condition for which she is prescribed bupropion 150 mg, with current symptoms described as manageable but with some exacerbations. A persistent rash around the eyes, characterized as itchy, raw, and painful, has been ongoing despite topical treatments. She is scheduled to see a ship's surveyor, who has previously prescribed creams without success, and may consider steroid injections. The patient's recent blood work indicated elevated cholesterol levels, and a previous sodium level was noted to be high, prompting recommendations for dietary modifications. Furthermore, vitamin D levels are pending, with supplementation already in use. There is mention of past smoking cessation and limited alcohol intake mainly on social occasions. She also has psoriatic arthritis and osteoporosis follow by rheumatology. FORMERLY [facility], [facility] Medical History (Updated 03/05/24 @ 12:03 by Rosalie Oneil MD) GABINO (generalized anxiety disorder) Mild recurrent major depression Upper respiratory infection Right hand pain Lumbar pain Sacral pain Compression fracture Otitis Osteoporosis Psoriatic arthritis Obesity HTN (hypertension) Psoriasis Osteoarthritis Surgical History S/P rotator cuff repair H/O toe surgery History of colonoscopy History of total left knee replacement (TKR) History of tonsillectomy History of hysterectomy History of total right knee replacement (TKR) Family History Father No problems noted. Mother Mental health disorder Family/Other Substance use disorder Social History Housing: House Alcohol intake: current Alcohol intake frequency: holidays/special occasions only Alcohol type: hard liquor and other Patient Tobacco Use Status: Former Tobacco user Tobacco use type: Cigarette Cigarettes Per Day: 30 Years Smoked: 40 e-Cigarette/Vaping Use: Never Used Second Hand Smoke Exposure: No service: No Current occupational status: retired Current occupation: left hand Cognitive needs: No Hearing needs: No Vision needs: Yes Questionnaire PHQ-9 Over the last 2 weeks, how often have you been bothered by any of the following problems? 1. Little interest or pleasure in doing things: not at all 2. Feeling down, depressed, or hopeless: several days 3. Trouble falling or staying asleep, or sleeping too much: not at all 4. Feeling tired or having little energy: not at all 5. Poor appetite or overeating: not at all 6. Feeling bad about yourself - or that you are a failure or have let yourself or your family down: not at all 7. Trouble concentrating on things, such as reading the newspaper or watching television: not at all 8. Moving or speaking so slowly that other people could have noticed. Or the opposite - being so fidgety or restless that you have been moving around a lot more than usual: not at all 9. Thoughts that you would be better off or of hurting yourself in some way: not at all Total score: 1 Depression Screening Interpretation: Positive Depression Screening Follow-up: Existing condition, In treatment and Follow-up Visit Requested Depression Screening Done: Yes 50876 - PHQ-9 Billing: Yes Source: Developed by Drs. Ruben Abel, Regla Saleh, Rome Jurado and colleagues, with an educational jermaine from [employer]. Thrive Questionnaire Date Thrive assessed: 03/05/24 I am a: Patient What is your living situation today?: I have a steady place to live Within the past 12 months, did the food you bought not last and you didn't have the money to get more?: Never true Within the past 12 months, did you worry whether your food would run out before you got money to buy more?: Never true Do you have trouble paying for medicines?: No Do you have trouble getting transportation to medical appointments?: No Do you have trouble paying your heating and electricity bill?: No Do you have trouble taking care of your child, family member or friend?: No Do you have trouble with day-to-day activities such as bathing, preparing meals, shopping, managing finances, etc.?: No Are you currently unemployed and looking for a job?: No Are you interested in more education?: No Please select the resources that you would like help with: None Currently or been in a relationship where the following occur: No concerns reported THRIVE Score: 0 AUDIT C Alcohol Use Questionnaire (AUDIT-C) 1. How often do you have a drink containing alcohol?: Monthly or less 2. How many drinks containing alcohol do you have on a typical day when you are drinking?: 1 or 2 3. How often do you have six or more drinks on one occasion?: Never Total Score: 1 Score Reviewed/Action Taken: No GABINO-7 AMB Questionnaire GABINO-7 Date GABINO - 7 assessed: 03/05/24 Feeling nervous, anxious, or on edge: 0 = Not at all Not being able to stop or control worryin = Not at all Worrying too much about different things: 0 = Not at all Trouble relaxin = Not at all Being so restless that it is hard to sit still: 0 = Not at all Becoming easily annoyed or irritable: 0 = Not at all Feeling afraid as if something awful might happen: 0 = Not at all Total GABINO-7 score (0-4 normal; 5-9 mild; 10-14 moderate; 15-21 severe): 0 Source: Developed by Drs. Ruben Abel, Regla Saleh, Rome Jurado and colleagues, with an educational jermaine from [employer]. GABINO-7 Assessment Billing GABINO-7 Assessment Tool: GABINO-7 Assessment 71682 Review of Systems Const All systems reviewed & are unremarkable except as noted in HPI and below Card Denies chest pain at rest, Denies chest pain with activity, Denies edema, Denies irregular heart rhythm, Denies claudication, Denies dyspnea, Denies dyspnea on exertion, Denies orthopnea, Denies paroxysmal nocturnal dyspnea and Denies slow heart rate Resp Denies cough, Denies dyspnea and Denies dyspnea on exertion Skin/Breast Reports rash Physical exam (Primary Care) Vital Signs: Last Vital Signs BP 136/80 03/05/24 11:17 BMI result Body Mass Index 35.8 BMI Assessment/Plan discussion: High BMI High, discussed plan: lifestyle, weight reduction, dietary and physical activity Tobacco/Smoking Status: Tobacco use Status Tobacco use date assessed 03/05/24 03/05/24 11:26 Patient Tobacco Use Status Former Tobacco user 03/05/24 11:16 Tobacco use type Cigarette 03/05/24 11:16 e-Cigarette/Vaping Use Never Used 03/05/24 11:16 PHQ-9: PHQ-9 Score PHQ-9: Total score 1 03/05/24 11:26 Depression Screening Interpretation: Positive Depression Screening Follow-up: Existing condition, In treatment and Follow-up Visit Requested Thrive Assessment: Date of Thrive Assessment Date Thrive assessed 03/05/24 03/05/24 11:16 Currently or been in a relationship where the following occur: No concerns reported Resp Effort & Inspection: normal respiratory effort Auscultation: clear to auscultation bilaterally Cardio Jugular venous distension: no JVD Rate: regular rate Rhythm: regular rhythm Heart sounds: S1 normal heart sound present and S2 normal heart sound present Skin Rashes: rashes noted urticaria bilateral eye Extrem General: Yes full ROM Coding Level of Care Code Est Pt Level 4 (52008) Complex EM visit Add On G2211 Diagnoses Mild recurrent major depression F33.0 HTN (hypertension) I10 Psoriatic arthritis L40.50 Age-related osteoporosis without current pathological fracture M81.0 Osteoporosis type: age-related Presence of current pathological fracture: without current pathological fracture Obesity (BMI 35.0-39.9 without comorbidity) E66.9 Pure hypercholesterolemia E78.00 Rash R21 Hypernatremia E87.0 Additional Codes PHQ-9 - 37325 - PHQ-9 Billing: Yes ([id number]) GABINO-7 Assessment Billing - GABINO-7 Assessment Tool: GABINO-7 Assessment [id number] ([id number]) Time Spent (min) 25 Assessment & Plan Assessment & Plan (1) Mild recurrent major depression: Code(s): F33.0 - Major depressive disorder, recurrent, mild Category: Medical (2) HTN (hypertension): Code(s): I10 - Essential (primary) hypertension Category: Medical (3) Psoriatic arthritis: Comment: Enbrel 02/2020- injection site reaction after 2 injections switch to Humira 03/2020. Humira discontinued due to injection site reaction. Orencia 11/2020-March 2022, no longer covered by insurance company, appeal was denied. Methotrexate 10/2014- March 2022, self stopped by patient Ednasandralinn 06/2022-present effective Code(s): L40.50 - Arthropathic psoriasis, unspecified Category: Medical (4) Osteoporosis: Comment: 10/2017 osteoporosis T score-2.5 in the femoral neck. 10/2019 Osteopenia based on lowest T-score of-2.1 in the femoral neck. 04/01/2022 osteopenia: T-score -2.4 in the femoral neck. Bone mass density values have increased 4.1% from previous and 23.7% from baseline in the spine; 3.4% from previous and 3.9% from baseline in the hip; 1% from previous and 3.5% from baseline in the femoral neck. Fosamax: prior to 2014 - stopped due to GI upset Reclast 2014- exact dates unknown Prolia 05/27/2015- present Code(s): M81.0 - Age-related osteoporosis without current pathological fracture Category: Medical Qualifiers: Osteoporosis type: age-related Presence of current pathological fracture: without current pathological fracture Qualified Code(s): M81.0 - Age- related osteoporosis without current pathological fracture (5) Obesity (BMI 35.0-39.9 without comorbidity): Code(s): E66.9 - Obesity, unspecified Category: Medical (6) Pure hypercholesterolemia: Code(s): E78.00 - Pure hypercholesterolemia, unspecified Category: Medical (7) Rash: Code(s): R21 - Rash and other nonspecific skin eruption Category: Medical (8) Hypernatremia: Code(s): E87.0 - Hyperosmolality and hypernatremia Category: Medical Plan - For Essential Hypertension: Continue current medications amlodipine and ramipril), monitor blood pressure regularly. - For Depression: Continue prescribed bupropion. Monitor mental health status and response to medication. - For Rash: Continue with planned dermatology evaluation for possible steroid injection treatment. - For Hypercholesterolemia: Recommend dietary modifications, plan to repeat cholesterol test in four months. - For Sodium Elevation: Advise increased water intake and reduced salt consumption. - For Seasonal Allergies: Review and adhere to current allergy management protocol, including avoiding known allergens. - Monitor response from future vitamin D test results and adjust supplementation if needed. - Encourage continued engagement in physical activity and healthy lifestyle choices. Patient was informed and verbally consented to the use of an ambient scribe for clinic note documentation during this visit. During the visit, I discussed ongoing management for essential hypertension, which is well controlled with amlodipine and ramipril. We reviewed potential complications of elevated sodium levels and hypercholesterolemia, advising dietary adjustments for both conditions. Dermatological concerns were addressed, with plans for further evaluation and potential treatment by a specialist. I informed the patient about the possible side effects of steroid injections for her rash and the importance of monitoring for changes in blood glucose levels. Current and potential future weight management strategies were explored, weighing risks and benefits of medications like Skyrizi and alternatives. We discussed the importance of exercise and dietary habits in long-term weight control. Orders: Orders Lipid Panel 4 Months E78.5 - Hyperlipidemia, unspecified Comprehensive [place]. Panel Fast 4 Months I10 - Essential (primary) hypertension Patient Instructions: - Continue taking hypertension and depression medications as prescribed. - Follow up with dermatology for rash treatment as scheduled. - Monitor dietary salt intake and drink more water daily. - Implement dietary changes to address cholesterol and sodium levels. - Engage in regular physical activity, aiming for 30 minutes a day, 5 days a week. - Schedule follow-up blood work for cholesterol in four months. - Maintain appointments with healthcare specialists. - Report any adverse symptoms or medication side effects promptly.
[2024-03-05 11:17] VITALS: BP 136/80; BMI 35.8
== END 2024-03-05 11:45 | disposition home or self-care (01) ==
PROVIDERS: PCP Internal Medicine; Visit Provider Internal Medicine
DX: I10 Essential (primary) hypertension (principal); F33.0 Major depressive disorder, recurrent, mild; L40.50 Arthropathic psoriasis, unspecified; M81.0 Age-related osteoporosis without current pathological fracture; E66.9 Obesity, unspecified; E78.00 Pure hypercholesterolemia, unspecified; R21 Rash and other nonspecific skin eruption; E87.0 Hyperosmolality and hypernatremia

== ENCOUNTER → 2024-03-05 11:13 | Outpatient (BNVA) | payer MEDICARE, MEDICAID, SELFPAY | PROVIDERS: PCP Internal Medicine; Visit Provider Internal Medicine | DX: F33.0 Major depressive disorder, recurrent, mild (principal); I10 Essential (primary) hypertension; L40.50 Arthropathic psoriasis, unspecified; M81.0 Age-related osteoporosis without current pathological fracture; E66.9 Obesity, unspecified; E78.00 Pure hypercholesterolemia, unspecified; R21 Rash and other nonspecific skin eruption; E87.0 Hyperosmolality and hypernatremia | CPT/HCPCS: 96127; 99212 ==

== ENCOUNTER 2024-07-04 10:49 | Outpatient (REF) | payer MEDICARE, MEDICAID, SELFPAY ==
[2024-07-04 11:55] LABS: Alanine Aminotransferase 23 U/L (0-31); Albumin Level 4.2 g/dL (3.5-5.0); Alkaline Phosphatase 62 U/L (39-117); Anion Gap 13 (12-20); Aspartate Amino Transferase 22 U/L (5-31); Bilirubin Total 0.4 mg/dL (0.0-1.0); Blood Urea Nitrogen 16 mg/dL (9-16); Calcium 8.3 mg/dL (8.4-10.2); Carbon Dioxide 30 mmol/L (22-29); Chloride 107 mmol/L (96-108); Cholesterol 225 mg/dL (<200); Estimated Glomerular Filt Rate > 60; Glucose Fasting 87 mg/dL (60-99); Glucose Random 87 mg/dL (60-115); HDL Cholesterol 81 mg/dL (>40); LDL Cholesterol Calculated 134 mg/dL (<100); Potassium 4.5 mmol/L (3.3-5.1); Sodium 145 mmol/L (135-145); Total Protein 7.3 g/dL (6.5-8.0); Triglycerides 50 mg/dL (<150)
--- OUTSIDE RECORDS SUMMARY | 2024-07-04 11:55 | XMS_ITS | Clinical Summary ---
Author Organization [facility] Address [address] [id number] Care Team Providers Care Carbon Paper Coating Supervisor Name Role Phone Lily Mcleod Primary Care Provider [phone] Allergies No known active allergies Medications Medication Sig Dispensed Refills Start Date End Date Status traMADol (ULTRAM) 50 MG tablet 0 08/31/2016 Active ramipril (ALTACE) 10 MG capsule 0 09/13/2016 Active methotrexate 2.5 MG tablet 0 09/22/2016 Active HYDROcodone-acetam inophen (NORCO) 7.5-325 MG per tablet 0 08/07/2016 Active gabapentin (NEURONTIN) 300 MG capsule 0 07/26/2016 Active folic acid (FOLVITE) tablet 1 mg 0 09/13/2016 Active clindamycin (CLEOCIN) 300 MG capsule 0 08/13/2016 Active buPROPion (WELLBUTRIN SR) 150 MG 12 hr tablet 0 09/22/2016 Active amLODIPine (NORVASC) tablet 10 mg 0 09/22/2016 Active LORazepam (ATIVAN) 0.5 MG tablet 0 12/08/2016 Active PROLIA 60 MG/ML injection 0 01/26/2018 Active ENBREL MINI 50 MG/ML prefilled cartridge 0 12/22/2018 Active Omeprazole (PRILOSEC PO) omeprazole 0 Active amoxicillin (AMOXIL) 500 MG capsule Take 4 tabs 1 hour prior to dental appointment 20 capsule 2 04/28/2020 Active Active Problems Problem Noted Date Diagnosed Date Postoperative follow-up 03/14/2018 Knee stiffness, right 01/21/2017 Right knee pain 09/24/2016 Family History Medical History Relation Name Comments Hypertension Father Hypertension Mother Relation Name Status Comments Father Mother Social History Tobacco Use Types Packs/Day Years Used Date Smoking Tobacco: Never Assessed Sex and Gender Information Value Date Recorded Sex Assigned at Not on file Gender Identity Not on file Sexual Orientation Not on file Job Start Date Occupation Industry Not on file Not on file Not on file Last Filed Vital Signs Vital Sign Reading Time Taken Comments Blood Pressure - - Pulse - - Temperature - - Respiratory Rate - - Oxygen Saturation - - Inhaled Oxygen Concentration - - Weight 70.3 kg (155 lb) 09/24/2016 11:44 AM EDT Height 139.7 cm (4' 7 ) 09/24/2016 11:44 AM EDT Body Mass Index 36.03 09/24/2016 11:44 AM EDT Plan of Treatment Health Maintenance Due Date Last Done Comments Hepatitis C Screening 1955 COVID-19 Vaccine (#1) 06/20/1954 Depression Screening 1965 Preventative Health Evaluation 12/22/1971 DTap / Tdap / Td (1 - Tdap) 1972 Colon Cancer Screening (Colonoscopy) 1998 Breast Cancer Screening (Mammogram) 12/22/2003 Shingrix-Zoster Vaccine (1 of 2) 12/22/2003 Fall Risk Assessment 2018 Osteoporosis Screening (DEXA Scan) 2018 Pneumococcal Vaccine (1 of 1 - PCV) 2018 Influenza Vaccine (#1) 2023 RSV Adult > 60+ Yrs or Pregn ant (1 - 1-dose 75+ series) 2028 Hepatitis B Vaccines Aged Out No long er eligible based on patient's age to complete this topic RSV Ped < 20 months Aged Out No longe r eligible based on patient's age to complete this topic Care Teams Carbon Paper Coating Supervisor Relationship Specialty Start Date End Date Lily Mcleod [address] [place] [address] [place] [address] PCP - General Family Medicine 07/29/17
--- OUTSIDE RECORDS SUMMARY | 2024-07-04 11:55 | XMS_ITS | Clinical Summary ---
Author Organization [address] [place] [address] Address [address] [place] [address] Phone Care Team Providers Care Nurses Assistant Name Role Phone Lily Mcleod Primary Care Provider Surgical History Surgery Date Site/Laterality Comments TOTAL KNEE ARTHROPLASTY 02/2016 PROCEDURE: [place] ARTHRP KNE CONDYLE&PLATU MEDIAL&LAT COMPARTMENTS OTHER SURGICAL HISTORY 2013 Left PROCEDURE: ---- OTHER ----; COMMENT: LEFT SHOULDER/ROTATOR CUFF OTHER SURGICAL HISTORY 2013 Right PROCEDURE: ---- OTHER ----; COMMENT: RIGHT SHOULDER/ROTATOR CUFF OTHER SURGICAL HISTORY 02/2004 PROCEDURE: ---- OTHER ----; COMMENT: SMALL BOWEL OBSTRUCTION SURGERY HYSTERECTOMY [id number] PROCEDURE: HISTORICAL HYSTERECTOMY HYSTERECTOMY PROCEDURE:HYSTERECTOMY JOINT REPLACEMENT PROCEDURE:JOINT REPLACEMENT SHOULDER SURGERY PROCEDURE:SHOULDER SURGERY Medical History Medical History Date Comments PNA (pneumonia) DX:PNA (pneumoni a) Hypertension DX:Hypertension Depression DX:Depression Anxiety DX:Anxiety Acute diverticulitis DX:Acute di verticulitis Arthritis DX:Arthritis Hypertension DX:Hypertension Right knee pain 09/24/2016 DX:Right knee pa in Family History Medical History Relation Name Comments Heart attack Father Hypertension Father Heart attack Mother Hypertension Mother Lung disease Mother Other: JOINT PROBLEMS Mother Stroke Mother Relation Name Status Comments Father Mother Social History Tobacco Use Types Packs/Day Years Used Date Smoking Tobacco: Never Assessed Alcohol Use Standard Drinks/Week Comments Yes 0 (1 standard drink = 0.6 oz pur e alcohol) Comments Unknown Sex and Gender Information Value Date Recorded Sex Assigned at Not on file Legal Sex Female 9:15 AM EST Gender Identity Not on file Sexual Orientation Not on file Obstetrics History Plan of Treatment Health Maintenance Due Date Last Done Comments Breast Cancer Screening 1955 COVID-19 Vaccine (#1) 1958 DTaP,Tdap,and Td Vaccines (1 - Tdap) 1972 Pneumococcal Vaccine: 50+ Ye ars (1 of 1 - PCV) 12/22/2003 Zoster Vaccines (1 of 2) 12/22/2003 Colorectal Cancer Screening: Colonoscopy 01/24/2022 Depression Screening 01/24/2022 Falls Risk Assessment 01/24/2022 Hepatitis C Screening 01/24/2022 Medicare Annual Wellness Visit 01/24/2022 Osteoporosis Screening (Bone Density Screening) 01/24/2022 Social Influencers of Health Screening 01/24/2022 Influenza Vaccine (Season Ended) 2024 RSV Immunization Adult Patie nts (1 - 1-dose 75+ series) 2028 HIB Vaccines Aged Out No longer eligi ble based on patient's age to complete this topic HPV Vaccines Aged Out No longer eligi ble based on patient's age to complete this topic Hepatitis A Vaccines Aged Out No long er eligible based on patient's age to complete this topic Hepatitis B Vaccines Aged Out No long er eligible based on patient's age to complete this topic IPV Vaccines Aged Out No longer eligi ble based on patient's age to complete this topic MMR Vaccines Aged Out No longer eligi ble based on patient's age to complete this topic Meningococcal ACWY Vaccine Aged Out N o longer eligible based on patient's age to complete this topic Meningococcal B Vaccine Aged Out No l onger eligible based on patient's age to complete this topic RSV Immunization Patients Un troy 20 months Aged Out No longer eligible b ased on patient's age to complete this topic Varicella Vaccines Aged Out No longer eligible based on patient's age to complete this topic Insurance MEDICARE [place]ICAID - [place] Advance Directives Documents on File Type Date Recorded Patient Wine Specialist Expl anation Health Care Decision (hx) 02/27/2018 AD FREITAS DIRECTIVE Health Care Decision (hx) 02/27/2018 AD FREITAS DIRECTIVE Health Care Decision (hx) 02/27/2018 AD FREITAS DIRECTIVE Care Teams Nurses Assistant Relationship Specialty Start Date End Date Lily Mcleod FNP [address] [place] [address] [place] [address] PCP - General Internal Medicine 11/14/17
== END 2024-07-04 10:50 | disposition home or self-care (01) ==
LOC: HO.LAB 10:49
PROVIDERS: PCP Internal Medicine; Visit Provider Internal Medicine
DX: E78.00 Pure hypercholesterolemia, unspecified (principal); E78.5 Hyperlipidemia, unspecified; I10 Essential (primary) hypertension
CPT/HCPCS: 36415; 80053; 80061

== ENCOUNTER 2024-07-10 13:19 | Outpatient (AMB) | payer MEDICARE, MEDICAID, SELFPAY ==
--- NOTE | 2024-07-10 13:28 | A.OFFPC_ITS ---
Vital Signs 07/10/24 13:29 Height 4 ft 7.5 in Weight 158 lb BMI 36.1 BP 128/82 Blood Pressure Location Lt brachial Position Sitting Intake Visit Reasons: bp, depression Intake Note: Patient here for a follow up BP, depression House Player Required: No Accompanied by: Self / Same As Patient Allergies etanercept [From Enbrel] Allergy (Severe, Verified 07/10/24 13:52) rash Seasonal Allergies Allergy (Severe, Verified 07/10/24 13:52) Rash adalimumab [From Humira] Allergy (Intermediate, Verified 07/10/24 13:52) Rash Medication List - Last Reconciled 07/10/24 by Rosalie Oneil MD amlodipine 10 mg PO DAILY bupropion HCl SR 150 mg PO DAILY 90 days calcium carbonate-vitamin D3 600 mg-25 mcg (1,000 unit) patient takes 2 caps daily denosumab (Prolia) 60 mg subcut [id number] diclofenac sodium 1% (Arthritis Pain (diclofenac)) 4 grams topical QID PRN epinephrine (EpiPen 2-Celso) 0.3 mg (0.3 mL) IM ONCE PRN fluticasone propionate 0.05% 1 appl topical DAILY PRN fluticasone propionate 110 mcg/actuation 2 puffs inhalation BID PRN fluticasone propionate 50 mcg/actuation 1 spray intranasal BID PRN gabapentin 300 mg PO DAILY hydroxyzine HCl 10 mg PO QID PRN lorazepam 0.5 mg PO BEDTIME PRN 30 days ramipril 10 mg PO DAILY 90 days risankizumab-rzaa (Skyrizi) 150 mg subcut Q12W tirzepatide (weight loss) (Zepbound) 2.5 mg (0.5 mL) subcut QWEEK 4 weeks tirzepatide (weight loss) (Zepbound) 5 mg (0.5 mL) subcut QWEEK 4 weeks tramadol 50 mg PO BEDTIME PRN Tobacco use date assessed: 07/10/24 Fall risk assessment: 1 Fall in past year Last assessed Fall Risk: 07/10/24 Dental Screening Dental Screen Date: 07/10/24 Did you have a dental visit in the last 12 months?: Yes Did you have a dental problem in the last 6 months where you did not have access to dental care?: No Was dental information given to patient?: Patient has dentist HPI HPI Comments History of Present Illness Details The patient is a 68-year-old female presenting with concerns of frequent urination and increased thirst, alongside routine follow-up. The patient has a history of psoriatic arthritis, for which she receives Skyrizi injections every three months, and her next dose is due this week. She reports the onset of urinary frequency, characterized by urinating every hour, and increased thirst, along with mild lightheadedness. These symptoms have begun recently and have caused the patient to worry about the possibility of underlying diabetes, despite having previously normal blood glucose levels. The patient reports no significant dietary changes, no caffeine intake, and she has not started any new diuretics which could potentially explain the symptoms. Her medical history is notable for hypertension and hyperlipidemia, both controlled with medication, specifically amlodipine and a recorded elevated cholesterol level of 225 mg/dL. Additionally, she has a documented mild vitamin D deficiency. Recent blood work indicated excellent glucose control with a level of 87 mg/dL and a slightly low calcium level at 8.3 mg/dL, with liver enzymes remaining within normal ranges. The patient follows up regularly for depression, which she states is managed, albeit with episodes of tiredness. Recently, she had a mammogram performed, which returned normal results; however, she has not received feedback on her bone density scan, completed alongside the mammogram. [facility] Medical History (Updated 07/10/24 @ 14:16 by Rosalie Oneil MD) GABINO (generalized anxiety disorder) Mild recurrent major depression Upper respiratory infection Right hand pain Lumbar pain Sacral pain Compression fracture Otitis Osteoporosis Psoriatic arthritis Obesity HTN (hypertension) Psoriasis Osteoarthritis Surgical History S/P rotator cuff repair H/O toe surgery History of colonoscopy History of total left knee replacement (TKR) History of tonsillectomy History of hysterectomy History of total right knee replacement (TKR) Family History Father No problems noted. Mother Mental health disorder Family/Other Substance use disorder Social History Housing: House Alcohol intake: current Alcohol intake frequency: holidays/special occasions only Alcohol type: hard liquor and other Patient Tobacco Use Status: Former Tobacco user Tobacco use type: Cigarette Cigarettes Per Day: 30 Years Smoked: 40 e-Cigarette/Vaping Use: Never Used Second Hand Smoke Exposure: No service: No Current occupational status: retired Current occupation: left hand Cognitive needs: No Hearing needs: No Vision needs: Yes Questionnaire PHQ-9 Over the last 2 weeks, how often have you been bothered by any of the following problems? 1. Little interest or pleasure in doing things: not at all 2. Feeling down, depressed, or hopeless: not at all 3. Trouble falling or staying asleep, or sleeping too much: more than half the days 4. Feeling tired or having little energy: several days 5. Poor appetite or overeating: nearly every day 6. Feeling bad about yourself - or that you are a failure or have let yourself or your family down: not at all 7. Trouble concentrating on things, such as reading the newspaper or watching television: not at all 8. Moving or speaking so slowly that other people could have noticed. Or the opposite - being so fidgety or restless that you have been moving around a lot more than usual: not at all 9. Thoughts that you would be better off or of hurting yourself in some way: not at all Total score: 6 Depression Screening Interpretation: Positive Depression Screening Follow-up: Existing condition and Follow-up Visit Requested Depression Screening Done: Yes 79629 - PHQ-9 Billing: Yes Source: Developed by Drs. Ruben Abel, Regla Saleh, Rome Jurado and colleagues, with an educational jermaine from [employer]. Thrive Questionnaire Date Thrive assessed: 07/08/24 I am a: Patient What is your living situation today?: I have a steady place to live Within the past 12 months, did the food you bought not last and you didn't have the money to get more?: Never true Within the past 12 months, did you worry whether your food would run out before you got money to buy more?: Never true Do you have trouble paying for medicines?: No Do you have trouble getting transportation to medical appointments?: No Do you have trouble paying your heating and electricity bill?: No Do you have trouble taking care of your child, family member or friend?: No Do you have trouble with day-to-day activities such as bathing, preparing meals, shopping, managing finances, etc.?: No Are you currently unemployed and looking for a job?: No Are you interested in more education?: No Please select the resources that you would like help with: None Currently or been in a relationship where the following occur: No concerns reported THRIVE Score: 0 AUDIT C Alcohol Use Questionnaire (AUDIT-C) 1. How often do you have a drink containing alcohol?: Monthly or less 2. How many drinks containing alcohol do you have on a typical day when you are drinking?: 1 or 2 3. How often do you have six or more drinks on one occasion?: Never Total Score: 1 Score Reviewed/Action Taken: No GABINO-7 AMB Questionnaire GABINO-7 Date GABINO - 7 assessed: 07/10/24 Feeling nervous, anxious, or on edge: 1 = Several days Not being able to stop or control worryin = Not at all Worrying too much about different things: 0 = Not at all Trouble relaxin = Not at all Being so restless that it is hard to sit still: 0 = Not at all Becoming easily annoyed or irritable: 1 = Several days Feeling afraid as if something awful might happen: 0 = Not at all Total GABINO-7 score (0-4 normal; 5-9 mild; 10-14 moderate; 15-21 severe): 2 Source: Developed by Drs. Ruben Abel, Regla Saleh, Rome Jurado and colleagues, with an educational jermaine from [employer]. GABINO-7 Assessment Billing GABINO-7 Assessment Tool: GABINO-7 Assessment 07505 Review of Systems Const All systems reviewed & are unremarkable except as noted in HPI and below Card Denies chest pain at rest, Denies chest pain with activity, Denies edema, Denies irregular heart rhythm, Denies claudication, Denies dyspnea, Denies dyspnea on exertion, Denies orthopnea, Denies paroxysmal nocturnal dyspnea and Denies slow heart rate Resp Denies cough, Denies dyspnea and Denies dyspnea on exertion GI Denies abdominal pain, Denies change in bowel habits, Denies excessive flatus, Denies nausea and Denies vomiting Reports nocturia, Denies urinary incontinence, Denies urinary hesitancy and Reports urinary urgency Musc Denies atrophy, Denies deformity and Denies limited range of motion Skin/Breast Denies bleeding lesions, Denies changing lesions and Denies rash Physical exam (Primary Care) Vital Signs: Last Vital Signs BP 128/82 07/10/24 13:29 BMI result Body Mass Index 36.1 Tobacco/Smoking Status: Tobacco use Status Tobacco use date assessed 07/10/24 07/10/24 13:34 Patient Tobacco Use Status Former Tobacco user 07/10/24 13:34 Tobacco use type Cigarette 07/10/24 13:34 e-Cigarette/Vaping Use Never Used 07/10/24 13:34 PHQ-9: PHQ-9 Score PHQ-9: Total score 6 07/10/24 14:13 Depression Screening Interpretation: Positive Depression Screening Follow-up: Existing condition and Follow-up Visit Requested Thrive Assessment: Date of Thrive Assessment Date Thrive assessed 07/08/24 07/10/24 13:34 Currently or been in a relationship where the following occur: No concerns reported Resp Effort & Inspection: normal respiratory effort Auscultation: clear to auscultation bilaterally Cardio Jugular venous distension: no JVD Rate: regular rate Rhythm: regular rhythm Heart sounds: S1 normal heart sound present and S2 normal heart sound present Extrem General: Yes full ROM Results AMB Urinalysis, Automated UA Leukoctes 0 Dario/uL Last Edit by Eze Canseco Brinda on 07/10/24 14:14 UA Nitrite Negative Last Edit by Eze Canseco [facility] on 07/10/24 14:14 UA Urobilinogen 0 mg/dL Last Edit by Eze Canseco [facility] on 07/10/24 14:14 UA Protein 0 mg/dL Last Edit by Eze Canseco [facility] on 07/10/24 14:14 UA pH 6.0 Last Edit by Eze Canseco [facility] on 07/10/24 14:14 UA Blood 0 Kang/uL Last Edit by Eze Canseco [facility] on 07/10/24 14:14 UA Specific [place] 1.030 Last Edit by Eze Canseco [facility] on 07/10/24 14 :14 UA Ketone Negative Last Edit by Eze Canseco [facility] on 07/10/24 14:14 UA Bilirubin 0 mg/dL Last Edit by Eze Canseco [facility] on 07/10/24 14:14 UA Glucose 0 mg/dL Last Edit by CECY Gan on 07/10/24 14:14 Results Reviewed Results Reviewed: Laboratory Last Values Urine pH (Auto) 6.0 07/10/24 14:09 Specific [place] (Auto) 1.030 07/10/24 14:09 Urine Protein (Auto) 0 mg/dL 07/10/24 14:09 Glucose (UA)(Auto) 0 mg/dL 07/10/24 14:09 Urine Ketones (Auto) Negative 07/10/24 14:09 Urine Blood (Auto) 0 Kang/uL 07/10/24 14:09 Urine Nitrite (Auto) Negative 07/10/24 14:09 Urine Bilirubin (Auto) 0 mg/dL 07/10/24 14:09 Urine Urobilinogen (Auto) 0 mg/dL 07/10/24 14:09 Leukocyte Esterase (Auto) 0 Dario/uL 07/10/24 14:09 Coding Level of Care Code Est Pt Level 4 (79316) Complex EM visit Add On G2211 Diagnoses Polyuria R35.89 Pure hypercholesterolemia E78.00 Mild recurrent major depression F33.0 GABINO (generalized anxiety disorder) F41.1 HTN (hypertension) I10 Psoriatic arthritis L40.50 Additional Codes GABINO-7 Assessment Billing - GABINO-7 Assessment Tool: GABINO-7 Assessment 16153 ([id number]) PHQ-9 - 20604 - PHQ-9 Billing: Yes ([id number]) Time Spent (min) 22 Assessment & Plan Assessment & Plan (1) Polyuria: Code(s): R35.89 - Other polyuria Category: Medical (2) Pure hypercholesterolemia: Code(s): E78.00 - Pure hypercholesterolemia, unspecified Category: Medical (3) Mild recurrent major depression: Code(s): F33.0 - Major depressive disorder, recurrent, mild Category: Medical (4) GABINO (generalized anxiety disorder): Code(s): F41.1 - Generalized anxiety disorder Category: Medical (5) HTN (hypertension): Code(s): I10 - Essential (primary) hypertension Category: Medical (6) Psoriatic arthritis: Comment: Enbrel 02/2020- injection site reaction after 2 injections switch to Humira 03/2020. Humira discontinued due to injection site reaction. Orencia 11/2020-March 2022, no longer covered by insurance company, appeal was denied. Methotrexate 10/2014- March 2022, self stopped by patient Zeus 06/2022-present effective Code(s): L40.50 - Arthropathic psoriasis, unspecified Category: Medical Plan The patient initially focuses on evaluating the cause of her urinary symptoms. A urine test was immediately scheduled to rule out infection, and further testing like a bladder ultrasound may be pursued if necessary. Adjustments in her treatment for psoriatic arthritis were not needed given her timely adherence to Skyrizi. Her cardiovascular risk management continues under routine monitoring with current antihypertensive and lipid-lowering medications deemed sufficient. Her ongoing issues with seasonal allergies and depression are managed with the current medication regimen. Any new findings will warrant revisiting management strategies, particularly pending bone density results. Patient was informed and verbally consented to the use of an ambient scribe for clinic note documentation during this visit. I addressed the patient's concerns regarding new urinary symptoms, explaining the significance of the urine test to exclude infection as a probable culprit. I reassured her regarding her blood sugar control and explained why diabetes might be an unlikely cause given her sugar levels. We reviewed her cardiovascular risk profile, emphasizing the low risk calculable from current metrics, hence the rejection of Zepbound therapy. Her current medications, including Prolia, which helps manage bone health, were reaffirmed as appropriate; further instructions depend on forthcoming bone density results. We discussed the importance of remaining on schedule with arthritis medication Kalenizi and maintaining regular follow-up appointments to reassess these and other health concerns. Orders: Orders AMB Urinalysis Automated Today R35.89 - Other polyuria US bladder Today R35.89 - Other polyuria Referrals Urology Referral R35.89 - Other polyuria Medications: Discontinued tirzepatide (weight loss) (Zepbound) for 4 weeks Discontinued Reason: Patient Completed Course 2.5 mg (0.5 mL) subcut QWEEK 4 weeks 2 mL 0RF E66.9 - Obesity, unspecified, E78.00 - Pure hypercholesterolemia, unspecified, I10 - Essential (primary) hypertension tirzepatide (weight loss) (Zepbound) Discontinued Reason: Patient Completed Course 5 mg (0.5 mL) subcut QWEEK 4 weeks 2 mL 0RF Patient Instructions: - Attend the laboratory for a urine test. - Follow up on bone density results. - Continue taking all medications as prescribed. - Report any new or worsening symptoms, particularly changes in urinary habits or joint discomfort. - Schedule an appointment if urine results indicate infection or if symptoms persist. - Maintain your current caffeine-free diet and hydration as usual.
[2024-07-10 13:29] VITALS: BP 128/82; BMI 36.1
--- OUTSIDE RECORDS SUMMARY | 2024-07-10 14:27 | XMS_ITS | Clinical Summary ---
Author Organization [address] [place] [address] Address [address] [place] [address] Phone Care Team Providers Care Sports Equipment Repairer Name Role Phone Lily Mcleod Primary Care Provider [phone] Surgical History Surgery Date Site/Laterality Comments TOTAL KNEE ARTHROPLASTY 02/2016 PROCEDURE: [place] ARTHRP KNE CONDYLE&PLATU MEDIAL&LAT COMPARTMENTS OTHER SURGICAL HISTORY 2013 Left PROCEDURE: ---- OTHER ----; COMMENT: LEFT SHOULDER/ROTATOR CUFF OTHER SURGICAL HISTORY 2013 Right PROCEDURE: ---- OTHER ----; COMMENT: RIGHT SHOULDER/ROTATOR CUFF OTHER SURGICAL HISTORY 02/2004 PROCEDURE: ---- OTHER ----; COMMENT: SMALL BOWEL OBSTRUCTION SURGERY HYSTERECTOMY [id number] PROCEDURE: HISTORICAL HYSTERECTOMY HYSTERECTOMY PROCEDURE:HYSTERECTOMY JOINT REPLACEMENT [...] Documents on File Type Date Recorded Patient Teller Vault Expl anation Health Care Decision (hx) 02/27/2018 AD FREITAS DIRECTIVE Health Care Decision (hx) 02/27/2018 AD FREITAS DIRECTIVE Health Care Decision (hx) 02/27/2018 AD FREITAS DIRECTIVE Care Teams Sports Equipment Repairer Relationship Specialty Start Date End Date Lily Mcleod FNP [address] [place] [address] [place] [address] PCP - General Internal Medicine 11/14/17
--- OUTSIDE RECORDS SUMMARY | 2024-07-10 14:27 | XMS_ITS | Clinical Summary ---
Author Organization [facility] Address [address] [id number] Care Team Providers Care Medical Microbiologist Name Role Phone Lily Mcleod Primary Care Provider [phone] Allergies No known active allergies Medications Medication [...] age to complete this topic Care Teams Medical Microbiologist Relationship Specialty Start Date End Date Lily Mcleod [address] [place] [address] [place] [address] PCP - General Family Medicine 07/29/17
== END 2024-07-10 14:16 | disposition home or self-care (01) ==
LOC: HO.HMCH 13:20
PROVIDERS: PCP Internal Medicine; Visit Provider Internal Medicine
DX: R35.89 Other polyuria (principal); E78.00 Pure hypercholesterolemia, unspecified; F33.0 Major depressive disorder, recurrent, mild; L40.50 Arthropathic psoriasis, unspecified; F41.1 Generalized anxiety disorder; I10 Essential (primary) hypertension

== ENCOUNTER → 2024-07-10 13:19 | Outpatient (BNVA) | payer MEDICARE, MEDICAID, SELFPAY | PROVIDERS: PCP Internal Medicine; Visit Provider Internal Medicine | DX: R35.89 Other polyuria (principal); E78.00 Pure hypercholesterolemia, unspecified; F33.0 Major depressive disorder, recurrent, mild; F41.1 Generalized anxiety disorder; I10 Essential (primary) hypertension; L40.50 Arthropathic psoriasis, unspecified | CPT/HCPCS: 81003; 96127; 99212 ==

== ENCOUNTER 2024-08-09 15:15 | Outpatient (REF) | payer MEDICARE, MEDICAID, SELFPAY ==
--- NOTE | ~2024-08-09 | US_ITS ---
EXAMINATION: US PELVIS LIMITED (BLADDER) CLINICAL INFORMATION: Other polyuria. COMPARISON: None available. TECHNIQUE: Real-time imaging of the bladder. FINDINGS: BLADDER: Well distended and normal. Bilateral ureteral jets are demonstrated. Prevoid bladder volume is 194 mL. Postvoid bladder volume is 7.6 mL. US/US bladder IMPRESSION: Normal urinary bladder. Electronically signed by: Quincy Zamarripa MD 08/09/2024 03:56 PM EDT
--- OUTSIDE RECORDS SUMMARY | 2024-08-09 16:33 | XMS_ITS | Clinical Summary ---
Author Organization [employer] [facility] Address [address] [place] [address] Care Team Providers Care Client Solutions Manager Name Role Phone Lily Mcleod Primary Care Provider [phone] Allergies No known active allergies Medications Medication [...] of 1 - PCV) 2018 Influenza Vaccine (Season Ended) 2024 RSV Adult > 60+ Yrs or Pregn ant (1 - 1-dose 75+ series) 2028 Hepatitis B Vaccines Aged Out No long er eligible based on patient's age to complete this topic RSV Ped < 20 months Aged Out No longe r eligible based on patient's age to complete this topic Care Teams Client Solutions Manager Relationship Specialty Start Date End Date Lily Mcleod [address] [place] [address] [place] [address] PCP - General Family Medicine 07/29/17
== END 2024-08-09 15:16 | disposition home or self-care (01) ==
LOC: HO.US 15:15
PROVIDERS: PCP Internal Medicine; Visit Provider Internal Medicine
DX: R35.89 Other polyuria (principal)
CPT/HCPCS: 76857

== ENCOUNTER → 2024-08-09 15:17 | Outpatient (BNV) | payer MEDICARE, MEDICAID, SELFPAY | PROVIDERS: PCP Internal Medicine; Visit Provider Radiology Diagnostic Radiology | DX: R35.89 Other polyuria (principal) | CPT/HCPCS: 76857 ==

== ENCOUNTER 2024-09-06 10:56 | Outpatient (AMB) | payer MEDICARE, MEDICAID, SELFPAY ==
--- NOTE | 2024-09-06 11:06 | A.OFFVIS_ITS ---
Intake Visit Reasons: polyuria Intake Note: New Patient presents for initial visit for poluria Urology Medications: none Blood Thinner: none PVR: 75ml's Financial Internship Required: No Accompanied by: Self / Same As Patient Allergies etanercept (From Enbrel) Allergy (Severe, Verified 09/06/24 11:10) rash Seasonal Allergies Allergy (Severe, Verified 09/06/24 11:10) Rash adalimumab (From Humira) Allergy (Intermediate, Verified 09/06/24 11:10) Rash HPI Comments Details: Ronna is a very pleasant 68 year old female patient of Dr. Hart. She has a past medical history of anxiety, depression, lumbar pain, sacral pain, compression fracture, osteoporosis, psoriatic arthritis, obesity, hypertension, and osteoarthritis. She presents to the office today as a new patient for ongoing lower urinary tract symptoms she has been experiencing. She reports having followed up with her PCP at which time a bladder ultrasound was ordered and recommendations were made for urology referral for further assessment evaluation. Bladder ultrasound results were reviewed 08/15 normal urinary bladder. In office urinalysis results reviewed with the patient today. PVR 75 mL. In discussion with the patient today she reports noting over the last 6-8 months she continues to experience episodes of urinary frequency. She feels these symptoms are exacerbated when she is carrying things and or by the way that she sits at times. She denies incontinence, hematuria, dysuria, foul smelling urine, changes to urinary stream, flank pain, fever, and or chills. She also does report episodes of nocturia 2-3 times per night. When asked she does report snoring however does not feel fatigued upon wakening. We did discussed attempting to obtain sleep study for further assessment evaluation however she declines at this time. We also discussed potential causes of urinary urgency, urinary frequency, and nocturia. We discussed further treatment options and risks and benefits of these treatment options. All questions were answered. She otherwise offers no other issues concerns with time. [facility] Medical History GABINO (generalized anxiety disorder) Mild recurrent major depression Upper respiratory infection Right hand pain Lumbar pain Sacral pain Compression fracture Otitis Osteoporosis Psoriatic arthritis Obesity HTN (hypertension) Psoriasis Osteoarthritis Surgical History S/P rotator cuff repair H/O toe surgery History of colonoscopy History of total left knee replacement (TKR) History of tonsillectomy History of hysterectomy History of total right knee replacement (TKR) Family History Father No problems noted. Mother Mental health disorder Family/Other Substance use disorder Social History Housing: House Alcohol intake: current Alcohol intake frequency: holidays/special occasions only Alcohol type: hard liquor and other Patient Tobacco Use Status: Former Tobacco user Tobacco use type: Cigarette Cigarettes Per Day: 30 Years Smoked: 40 e-Cigarette/Vaping Use: Never Used Second Hand Smoke Exposure: No service: No Current occupational status: retired Current occupation: left hand Cognitive needs: No Hearing needs: No Vision needs: Yes Review of Systems Const All systems reviewed & are unremarkable except as noted in HPI and below Physical Exam Const General: cooperative, healthy appearing, comfortable, no acute distress, well developed, alert and awake Orientation/consciousness: patient oriented x3 Limitations: no limitations HEENT Head: Yes normal to inspection, Yes normocephalic and Yes atraumatic Ears: hearing grossly normal bilaterally Eyes General: appearance normal, both eyes and all related structures Neck Neck: Yes normal visual inspection and Yes trachea midline Chest Chest palpation & inspection: normal inspection of the chest Resp Effort & Inspection: normal respiratory effort and able to speak in complete sentences Cardio Rate: regular rate GI Inspection: Yes normal to inspection General: Yes no CVA tenderness Back/Spine/Pelvis Back: no CVA tenderness Skin General skin exam: no rashes or lesions noted Neuro General: patient oriented x3 Extrem General: Yes normal to inspection Psych Appearance: grossly normal and well kempt Mental Status: mental status grossly normal Speech and movement: Normal speech and movement present and Clear speech present Affect: normal affect Attitude: cooperative Thought process: Normal thought process present Thought content: Normal thought content present Insight: Fair insight present (Psych) Judgement: Fair judgement present (Psych) Office Procedures Post Void Residual Post Residual Void Post Void Residual (PVR): 75 [id number] Void Residual by ultrasound Results AMB Urinalysis, Automated UA Leukoctes 0 Dario/uL Last Edit by [facility]mega [facility] on 09/06/24 11:26 UA Nitrite [facility] on 09/06/24 11:26 UA Urobilinogen 0.2 mg/dL Last Edit by [facility], [facility] on 09/06/24 11:2 6 UA Protein 0 mg/dL Last Edit by [facility], [facility] on 09/06/24 11:26 UA pH 5.5 Last Edit by [facility], [facility] on 09/06/24 11:26 UA Blood 0 Kang/uL Last Edit by [facility] Shania, [facility] on 09/06/24 11:26 UA Specific Minerva 1.020 Last Edit by [facility] Shania, [facility] on 09/06/24 11: 26 UA Ketone Last Edit by [facility], [facility] on 09/06/24 11:26 UA Bilirubin 0 mg/dL Last Edit by [facility], [facility] on 09/06/24 11:26 UA Glucose 0 mg/dL Last Edit by [facility], [facility] on 09/06/24 11:26 Results Reviewed Results Reviewed: Laboratory Last Values Urine pH (Auto) 5.5 09/06/24 11:11 Specific Minerva (Auto) 1.020 09/06/24 11:11 Urine Protein (Auto) 0 mg/dL 09/06/24 11:11 Glucose (UA)(Auto) 0 mg/dL 09/06/24 11:11 Urine Blood (Auto) 0 Kang/uL 09/06/24 11:11 Urine Bilirubin (Auto) 0 mg/dL 09/06/24 11:11 Urine Urobilinogen (Auto) 0.2 mg/dL 09/06/24 11:11 Leukocyte Esterase (Auto) 0 Dario/uL 09/06/24 11:11 Date of Service: 08/09/24 Procedure(s): US bladder FINDINGS: BLADDER: Well distended and normal. Bilateral ureteral jets are demonstrated. Prevoid bladder volume is 194 mL. Postvoid bladder volume is 7.6 mL. IMPRESSION: Normal urinary bladder. Assessment & Plan Assessment & Plan (1) Urinary frequency: Code(s): R35.0 - Frequency of micturition Category: Medical (2) Nocturia: Code(s): R35.1 - Nocturia Category: Medical Plan In office urinalysis results reviewed with the patient today; as noted above. PVR 75 mL. Recent bladder ultrasound results reviewed with the patient today; as noted above. We discussed bladder diary; information provided. We discussed bladder triggers and irritants. We discussed potential causes of lower urinary tract symptoms patient is experiencing as well as further treatment options and risks and benefits of these treatment options. Will refer to pelvic floor therapy for further assessment evaluation. We discussed importance of limiting fluids 2-3 hours prior to bed to decrease episodes of nocturia We did discussed correlation of sleep apnea and lower urinary tract symptoms; we discussed obtaining home sleep study however patient declines at this time. All questions were answered. Will obtain renal ultrasound. Follow-up in 3-4 months with imaging and PVR; or sooner with any issues, concerns, and or questions. Orders: Orders AMB Urinalysis Automated Today Z13.9 - Encounter for screening, unspecified AMB Post Void Residual by ultrasound Today R35.89 - Other polyuria US renal BI Today R35.0 - Frequency of micturition PT Evaluation and Treatment Today R35.0 - Frequency of micturition Patient Instructions: The patient had an opportunity to ask questions regarding the treatment plan. All questions were answered. Physical exam, labs, and imaging were discussed and reviewed in detail. As well as risks, benefits, and discussion of treatment choices. No major barriers to understanding were identified. The patient expressed understanding and agreement with the above treatment plan. The patient was made aware they should contact our office by phone for worsening of their current condition, the appearance of new symptoms, or with any questions or concerns. Compliance is encouraged with any medications and follow up testing that is ordered. It is a privilege to be allowed the opportunity to participate in? your urological care.? Again, if you have any questions or concerns If you have any questions or concerns please do not hesitate to contact me. The office is [phone]. This note is constructed using voice recognition software. While every effort has been made to ensure accuracy bracelet former errors may have been included. Yours sincerely, SVITLANA Chan-BC Coding Level of Care Code New Pt Level 3 (70599) Diagnoses Urinary frequency R35.0 Nocturia R35.1 CPT Codes Post Residual Void - PVR CPT Code: 34503-[id number] Void Residual by ultrasound ([id number])
--- OUTSIDE RECORDS SUMMARY | 2024-09-06 11:45 | XMS_ITS | Clinical Summary ---
Author Organization [address] [place] [address] Address [address] [place] [address] Phone Care Team Providers Care Adoption Manager Name Role Phone Lily Mcleod Primary Care Provider Surgical History Surgery Date Site/Laterality Comments TOTAL KNEE ARTHROPLASTY 02/2016 PROCEDURE: DC ARTHRP KNE CONDYLE&PLATU MEDIAL&LAT COMPARTMENTS OTHER SURGICAL HISTORY 2013 Left PROCEDURE: ---- OTHER ----; COMMENT: LEFT SHOULDER/ROTATOR CUFF OTHER SURGICAL HISTORY 2013 Right PROCEDURE: ---- OTHER ----; COMMENT: RIGHT SHOULDER/ROTATOR CUFF OTHER SURGICAL HISTORY 02/2004 PROCEDURE: ---- OTHER ----; COMMENT: SMALL BOWEL OBSTRUCTION SURGERY HYSTERECTOMY [id number] PROCEDURE: HISTORICAL HYSTERECTOMY HYSTERECTOMY PROCEDURE:HYSTERECTOMY JOINT REPLACEMENT [...] Influencers of Health Screening 01/24/2022 Influenza Vaccine (#1) 2024 RSV Immunization Adult Patie nts (1 [...] Documents on File Type Date Recorded Patient Records Associate Expl anation Health Care Decision (hx) 02/27/2018 AD FREITAS DIRECTIVE Health Care Decision (hx) 02/27/2018 AD FREITAS DIRECTIVE Health Care Decision (hx) 02/27/2018 AD FREITAS DIRECTIVE Care Teams Adoption Manager Relationship Specialty Start Date End Date Lily Mcleod FNP [address] [place] [address] [place] [id number] PCP - General Internal Medicine 11/14/17
--- OUTSIDE RECORDS SUMMARY | 2024-09-06 11:45 | XMS_ITS | Clinical Summary ---
Author Organization [employer] [facility] Address [address] [place] [address] Care Team Providers Care Regional Transfer Liaison Name Role Phone Lily Mcleod Primary Care Provider [phone] Allergies No known active allergies Medications Medication [...] 1 - PCV) 2018 Influenza Vaccine (#1) 2024 RSV Adult > 60+ Yrs or Pregn ant (1 - 1-dose 75+ series) 2028 Hepatitis B Vaccines Aged Out No long er eligible based on patient's age to complete this topic RSV Ped < 20 months Aged Out No longe r eligible based on patient's age to complete this topic Care Teams Regional Transfer Liaison Relationship Specialty Start Date End Date Lily Mcleod [address] [place] [address] [place] [address] PCP - General Family Medicine 07/29/17
== END 2024-09-06 11:55 | disposition home or self-care (01) ==
LOC: HO.HUSH 10:57
PROVIDERS: PCP Internal Medicine; Visit Provider Nurse Practitioner Family
DX: R35.0 Frequency of micturition (principal); R35.1 Nocturia; Z13.9 Encounter for screening, unspecified
CPT/HCPCS: 99203

== ENCOUNTER → 2024-09-06 10:56 | Outpatient (BNVA) | payer MEDICARE, MEDICAID, SELFPAY | PROVIDERS: PCP Internal Medicine; Visit Provider Nurse Practitioner Family | DX: R35.0 Frequency of micturition (principal); R35.1 Nocturia; Z13.9 Encounter for screening, unspecified | CPT/HCPCS: 51798; 81003; 99202 ==

== ENCOUNTER 2024-09-13 09:37 | Outpatient (REF) | payer MEDICARE, MEDICAID, SELFPAY ==
--- NOTE | ~2024-09-13 | XR_ITS ---
EXAMINATION: XR CERVICAL SPINE CLINICAL INFORMATION: M54.2 - Cervicalgia COMPARISON: None available. TECHNIQUE: AP, lateral, swimmer's projection and atlantoodontoid views. FINDINGS: Craniocervical junction is intact. Anterior marginal osteophyte formation and endplate sclerosis from C3-4 to C6-7 levels. Facet joint hypertrophy bilaterally at multiple levels from C3 to C6. No gross malalignment. No acute cortical disruption. Osteopenia versus osteoporosis. Upper airways patent. XR/XR cervical spine 5V IMPRESSION: Multilevel spondylosis C3 C7 without acute fracture or gross listhesis. Electronically signed by: Shahzad Meneses MD 09/13/2024 11:38 AM EDT
--- OUTSIDE RECORDS SUMMARY | 2024-09-13 10:16 | XMS_ITS | Clinical Summary ---
Author Organization [address] [place] [address] Address [address] [place] [address] Phone Care Team Providers Care Residency Director Name Role Phone Lily Mcleod Primary Care Provider [phone] Surgical History Surgery Date Site/Laterality Comments TOTAL KNEE ARTHROPLASTY 02/2016 PROCEDURE: DC ARTHRP KNE CONDYLE&PLATU MEDIAL&LAT COMPARTMENTS OTHER SURGICAL HISTORY 2013 Left PROCEDURE: ---- OTHER ----; COMMENT: LEFT SHOULDER/ROTATOR CUFF OTHER SURGICAL HISTORY 2013 Right PROCEDURE: ---- OTHER ----; COMMENT: RIGHT SHOULDER/ROTATOR CUFF OTHER SURGICAL HISTORY 02/2004 PROCEDURE: ---- OTHER ----; COMMENT: SMALL BOWEL OBSTRUCTION SURGERY HYSTERECTOMY [id number] PROCEDURE: HISTORICAL HYSTERECTOMY HYSTERECTOMY PROCEDURE:HYSTERECTOMY JOINT REPLACEMENT [...] 2) 12/22/2003 Colorectal Cancer Screening: Colonoscopy 01/24/2022 Falls Risk Assessment 01/24/2022 Hepatitis C Screening 01/24/2022 Medicare Annual Wellness Visit 01/24/2022 Osteoporosis Screening (Bone Density Screening) 01/24/2022 Social Influencers of Health Screening 01/24/2022 Depression Screening 02/22/2024 Influenza Vaccine (#1) 2024 RSV Immunization Adult [...] Documents on File Type Date Recorded Patient Assistant Construction Superintendent Expl anation Health Care Decision (hx) 02/27/2018 AD FREITAS DIRECTIVE Health Care Decision (hx) 02/27/2018 AD FREITAS DIRECTIVE Health Care Decision (hx) 02/27/2018 AD FREITAS DIRECTIVE Care Teams Residency Director Relationship Specialty Start Date End Date Lily Mcleod FNP [address] [place] [address] [place] [address] PCP - General Internal Medicine 11/14/17
[2024-09-13 11:19] LABS: Anion Gap 11 (12-20); Blood Urea Nitrogen 18 mg/dL (9-16); Calcium 9.1 mg/dL (8.4-10.2); Carbon Dioxide 31 mmol/L (22-29); Chloride 108 mmol/L (96-108); Estimated Glomerular Filt Rate > 60; Potassium 4.4 mmol/L (3.3-5.1); Sodium 146 mmol/L (135-145)
[2024-09-18 08:03] LABS: Collagen Type I C-Telopeptide 367 pg/mL (see note)
== END 2024-09-13 09:38 | disposition home or self-care (01) ==
LOC: HO.XRAY 09:37
PROVIDERS: Absent Provider Student in an Organized Health Care Education/Training Program; PCP Internal Medicine; Visit Provider Student in an Organized Health Care Education/Training Program
DX: M81.0 Age-related osteoporosis without current pathological fracture (principal); L40.50 Arthropathic psoriasis, unspecified; M15.9 Polyosteoarthritis, unspecified; M54.2 Cervicalgia; Z79.620 Long term (current) use of immunosuppressive biologic
CPT/HCPCS: 36415; 72050; 80048; 82306; 82523; 96372; 99212; J0897

== ENCOUNTER 2024-09-13 09:51 | Outpatient (AMB) | payer MEDICARE, MEDICAID, SELFPAY ==
--- NOTE | 2024-09-13 09:58 | A.OFFVIS_ITS ---
Vital Signs 09/13/24 09:59 Height 4 ft 7.5 in Weight 156 lb 4.924 oz BMI 35.7 BP 132/70 Blood Pressure Location Lt brachial Position Sitting Pulse 72 Pulse Oximetry (%) 96 Oxygen Delivery Method Room Air Intake Visit Reasons: Osteoporosis/prolia Intake Note: Patient last seen by Doctor Lazarus Escoto on 03/01/24. Presents today for Osteoporosis/Prolia injection follow up and test results. Patient had blood work done this morning, because she forgot. Allergies etanercept (From Enbrel) Allergy (Severe, Verified 09/13/24 10:02) rash Seasonal Allergies Allergy (Severe, Verified 09/13/24 10:02) Rash adalimumab (From Humira) Allergy (Intermediate, Verified 09/13/24 10:02) Rash HPI Comments Details: Patient is a 68-year-old female with hypertension, depression/anxiety, allergies, hyperlipidemia, history of diverticulitis, polyarticular osteoarthritis status post bilateral knee replacement, psoriasis complicated by psoriatic arthritis and osteoporosis here today for follow up Interval History: Patient last seen 03/01/[address] Escoto - Doing well - Mechanical fall during the holidays but no fractures - No PsO, on Skyrizi from derm Today - Continues to do well - Concerned about her nail changes - Neck pain - No falls or fractures Rheumatologic History: PsO/PsA Enbrel 02/2020- injection site reaction after 2 injections switch to Humira 03/2020. Humira discontinued due to injection site reaction. Orencia 11/2020-March 2022, no longer covered by insurance company, appeal was denied. Methotrexate 10/2014- March 2022, self stopped by patient Skyrizi 06/2022-present effective Current Rheumatology Medication(s): Skyrizi 150mg every 12 weeks (from derm) Prolia 60mg SC every 6 months Vit D-Ca PFSH Medical History GABINO (generalized anxiety disorder) Mild recurrent major depression Upper respiratory infection Right hand pain Lumbar pain Sacral pain Compression fracture Otitis Osteoporosis Psoriatic arthritis Obesity HTN (hypertension) Psoriasis Osteoarthritis Surgical History S/P rotator cuff repair H/O toe surgery History of colonoscopy History of total left knee replacement (TKR) History of tonsillectomy History of hysterectomy History of total right knee replacement (TKR) Family History Father No problems noted. Mother Mental health disorder Family/Other Substance use disorder Social History Housing: House Alcohol intake: current Alcohol intake frequency: holidays/special occasions only Alcohol type: hard liquor and other Patient Tobacco Use Status: Former Tobacco user Tobacco use type: Cigarette Cigarettes Per Day: 30 Years Smoked: 40 e-Cigarette/Vaping Use: Never Used Second Hand Smoke Exposure: No service: No Current occupational status: retired Current occupation: left hand Cognitive needs: No Hearing needs: No Vision needs: Yes Review of Systems Const Details: Review of Systems Constitutional: Denies fever, chills, weight loss ENT: Denies vision changes, eye pain or eye redness, dental caries, dry mouth GI: Denies nausea, vomiting, diarrhea, abdominal pain, change in BM Pulm: Denies SOB, LEONE, hemoptysis, wheezing Cards: Denies chest pain, palpitations Skin: Denies Raynaud's, rash, photosensitivity, MANAGER READING: Denies headaches, weakness, paresthesias, recurrent falls MSK: as per HPI All other systems reviewed and are unremarkable except noted above Physical Exam Exam Exam: Vital signs reviewed Physical Examination CONSTITUITIONAL Patient alert and cooperative. Well appearing and in no apparent painful distress MSK Hands * Right Hand: Able to make a fist. No swelling or tenderness to palpation of these joints. * Left Hand: Able to make a fist. No swelling or tenderness to palpation of these joints. * Prominent Herbedens nodes noted bilaterally Wrists * Right Wrist: Full ROM. 70 degrees of wrist flexion, 80 degrees of wrist extension. No swelling or TTP * Left Wrist: Full ROM. 70 degrees of wrist flexion, 80 degrees of wrist extension. No swelling or TTP Elbows * Right Elbow: Full ROM. No swelling or TTP. No TTP of the medial and lateral epicondyles * Left Elbow: Full ROM. No swelling or TTP. No TTP of the medial and lateral epicondyles Shoulders * Right shoulder: Full ROM. No swelling noted. No TTP of the AC joint, subacromial bursa or posterior shoulder * Left shoulder: Full ROM. No swelling noted. No TTP of the AC joint, subacromial bursa or posterior shoulder Knees * Right knee: Full ROM. No swelling noted. No TTP of the knee joint lie * Left knee: Full ROM. No swelling noted. No TTP of the knee joint lie * TTP bilateral pes anserine bursa * Surgical scar noted bilaterally Ankles * Right ankle: Good ankle dorsiflexion and plantar flexion. No swelling. No TTP of the ankle joint * Left ankle: Good ankle dorsiflexion and plantar flexion. No swelling. No TTP of the ankle joint Feet * Right foot: Negative squeeze test * Left foot: Negative squeeze test Tender points? * No tenderness to palpation of the bilateral trapezius, supraspinatus, anterior costochondral junctions, bilateral suboccipital muscle insertions SKIN Onycholysis noted to nails of hands and feet Vital Signs: Last Vital Signs Pulse 72 09/13/24 09:59 BP 132/70 09/13/24 09:59 Pulse Ox 96 09/13/24 09:59 Oxygen Delivery Method Room Air 09/13/24 09:59 BMI result Body Mass Index 35.7 Office Meds Prolia 60 mg/mL subcutaneous syringe Performing Provider: Fidelina Andre MD Performing Location: [facility] Endocrinology Administered by: Sonia Simpson RN on 09/13/24 10:46 Dose Route Admin Location Dispensed Lot Number Expiration Date [facility] Crusher 60 mg subcut right upper arm 1 mL [id number] 04/21/27 32290-056-03 AM GEN Total Dispensed Waste 1 mL 0 % Comments: Patient tolerated injection well. Denies any adverse reactions to previous injections Results Reviewed Results Reviewed: Laboratory Tests 02/27/24 07/04/24 09/13/24 11:25 10:52 09:47 Sodium 145 Pending Potassium 4.5 Pending Chloride 107 Pending Carbon Dioxide 30 H Pending BUN 16 Pending Creatinine 0.73 Pending Estimated GFR > 60 Pending 25-OH Vitamin D Total 38 Pending 25-Hydroxy Vitamin D3 38 DEXA 04/2024 AP spine 0.6 Total Hip -1.2 Fem Neck -2.4 Assessment & Plan Assessment & Plan (1) Psoriatic arthritis: Comment: Enbrel 02/2020- injection site reaction after 2 injections switch to Humira 03/2020. Humira discontinued due to injection site reaction. Orencia 11/2020-March 2022, no longer covered by insurance company, appeal was denied. Methotrexate 10/2014- March 2022, self stopped by patient Portia 06/2022-present effective Code(s): L40.50 - Arthropathic psoriasis, unspecified Category: Medical Plan: #PsO/PsA Patient is a 68 y.o. female with PsO complicated by PsA Currently in remission Concerned about nail dystrophy, advised to follow up with derm Plan - Continue portia with derm - RTC 6 months - Labs before visit: CMP, Vit D (2) Osteoporosis: Comment: 10/2017 osteoporosis T score-2.5 in the femoral neck. 10/2019 Osteopenia based on lowest T-score of-2.1 in the femoral neck. 04/01/2022 osteopenia: T-score -2.4 in the femoral neck. Bone mass density values have increased 4.1% from previous and 23.7% from baseline in the spine; 3.4% from previous and 3.9% from baseline in the hip; 1% from previous and 3.5% from baseline in the femoral neck. Fosamax: prior to 2014 - stopped due to GI upset Reclast 2014- exact dates unknown Prolia 05/27/2015- present Code(s): M81.0 - Age-related osteoporosis without current pathological fracture Category: Medical Qualifiers: Osteoporosis type: age-related Presence of current pathological fracture: without current pathological fracture Qualified Code(s): M81.0 - Age- related osteoporosis without current pathological fracture Plan: #Osteoporosis Patient with osteoporosis with improved DEXA ricardo at the spine on Prolia Discussed that patient is coming up on 10 years of Prolia however, the data shows that stopping Prolia is associated with rapid deterioration of bone Patient is okay with continuing Prolia Plan - Prolia 60mg SC every 6 months - Vit D at goal - Follow up labs from today (3) Polyarticular osteoarthritis: Code(s): M15.9 - Polyosteoarthritis, unspecified Plan: #Polyarticular OA Complaining of neck pain which is likely related to degenerative disease We will check XRs and send to pain management Plan - XR C spine (4) Encounter for monitoring denosumab therapy: Code(s): Z51.81 - Encounter for therapeutic drug level monitoring; Z79.620 - terminal makeup operator (current) use of immunosuppressive biologic Plan: #Long-term use of Denosumab Discussed with patient the risks and benefits of denosumab (Prolia) for the management of their osteoporosis Benefits include improved bone density, decreased fracture risk Risks include rapid bone loss if denosumab stopped, osteonecrosis of the jaw especially in patients with poor oral hygiene/diabetes/use of glucocorticoids/age greater than 65 years, atypical femoral fractures, injection site reactions. Mild increased risk of infections due to RANKL on T helper cells, increased risk of hypocalcemia especially in CKD patients Keep vitamin-D at least 35 ng/mL Advised to delay non emergent dental procedures to toward the end of the 6 month cycle and if they plan to stop denosumab would need to continue antiresorptive to maintain the effects of denosumab Plan I spent 30 minutes reviewing the record and labs, taking a history, examining the patient, discussing the treatment plan, ordering diagnostic work up and documenting in the medical record Orders: Orders AMB Denosumab Injection Practice Supplied Today M81.0 - Age-related osteoporosis without current pathological fracture Coding Level of Care Code Est Pt Level 4 (44511) Complex EM visit Add On G2211 Diagnoses Psoriatic arthritis L40.50 Age-related osteoporosis without current pathological fracture M81.0 Osteoporosis type: age-related Presence of current pathological fracture: without current pathological fracture Polyarticular osteoarthritis M15.9 Encounter for monitoring denosumab therapy Z51.81; Z79.620
[2024-09-13 09:59] VITALS: BP 132/70; PULSE 72; O2SAT 96; BMI 35.7
--- OUTSIDE RECORDS SUMMARY | 2024-09-13 10:34 | XMS_ITS | Clinical Summary ---
Author Organization [email or web address] [facility] Address [address] [place] [address] Care Team Providers Care Greeter Name Role Phone Lily Mcleod Primary Care Provider [phone] Allergies No known active allergies Medications Medication [...] age to complete this topic Care Teams Greeter Relationship Specialty Start Date End Date Lily Mcleod [address] [place] [address] [place] [address] PCP - General Family Medicine 07/29/17
== END 2024-09-13 10:48 | disposition home or self-care (01) ==
LOC: HO.RHE 09:52
PROVIDERS: PCP Internal Medicine; Visit Provider Student in an Organized Health Care Education/Training Program
DX: L40.50 Arthropathic psoriasis, unspecified (principal); M81.0 Age-related osteoporosis without current pathological fracture; M15.9 Polyosteoarthritis, unspecified; Z51.81 Encounter for therapeutic drug level monitoring; Z79.620 Long term (current) use of immunosuppressive biologic
CPT/HCPCS: 99214; G2211

== ENCOUNTER → 2024-09-13 11:02 | Outpatient (BNV) | payer MEDICARE, MEDICAID, SELFPAY | PROVIDERS: Absent Provider Student in an Organized Health Care Education/Training Program; PCP Internal Medicine; Visit Provider Radiology Diagnostic Radiology | DX: M47.812 Spondylosis without myelopathy or radiculopathy, cervical region (principal) | CPT/HCPCS: 72050 ==

== ENCOUNTER 2024-09-28 09:31 | Outpatient (AMB) | payer MEDICARE, MEDICAID, SELFPAY ==
--- OUTSIDE RECORDS SUMMARY | 2024-09-28 09:35 | XMS_ITS | Clinical Summary ---
Author Organization [address] [place] [address] Address [address] [place] [address] Phone Care Team Providers Care Boat Camp Operator Name Role Phone Lily Mcleod Primary Care Provider Surgical History Surgery Date Site/Laterality Comments TOTAL KNEE ARTHROPLASTY 02/2016 PROCEDURE: [place] ARTHRP KNE CONDYLE&PLATU MEDIAL&LAT COMPARTMENTS OTHER SURGICAL HISTORY 2013 Left PROCEDURE: ---- OTHER ----; COMMENT: LEFT SHOULDER/ROTATOR CUFF OTHER SURGICAL HISTORY 2013 Right PROCEDURE: ---- OTHER ----; COMMENT: RIGHT SHOULDER/ROTATOR CUFF OTHER SURGICAL HISTORY 02/2004 PROCEDURE: ---- OTHER ----; COMMENT: SMALL BOWEL OBSTRUCTION SURGERY HYSTERECTOMY [id number] PROCEDURE: HISTORICAL HYSTERECTOMY HYSTERECTOMY PROCEDURE:HYSTERECTOMY JOINT REPLACEMENT [...] Documents on File Type Date Recorded Patient Campus Safety Officer Expl anation Health Care Decision (hx) 02/27/2018 AD FREITAS DIRECTIVE Health Care Decision (hx) 02/27/2018 AD FREITAS DIRECTIVE Health Care Decision (hx) 02/27/2018 AD FREITAS DIRECTIVE Care Teams Boat Camp Operator Relationship Specialty Start Date End Date Lily Mcleod FNP [address] [place] [address] [place] [address] PCP - General Internal Medicine 11/14/17
--- OUTSIDE RECORDS SUMMARY | 2024-09-28 09:35 | XMS_ITS | Clinical Summary ---
Author Organization [facility] Address [address] [place] [address] Care Team Providers Care Ceramic Worker Name Role Phone Lily Mcleod Primary Care Provider [phone] Allergies No known active allergies Medications Medication [...] age to complete this topic Care Teams Ceramic Worker Relationship Specialty Start Date End Date Lily Mcleod [address] [place] [address] [place] [address] PCP - General Family Medicine 07/29/17
[2024-09-28 09:39] VITALS: BP 186/74; PULSE 60; RESP 18; O2SAT 95; BMI 35.6
--- NOTE | 2024-09-28 09:39 | MHC.OFFVIS ---
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 The neck pain has been ongoing for just under a year and is attributed to degeneration and arthritis, with pain radiating to the head in the occipital region, worse on the left side. The pain is described as aching, stabbing, sharp, heavy, and occasional, with a severity of 10/10 in the morning and 7/10 during the day. She denies headache in the past and reports headache pain is worse than neck pain. Patient states head pain is unexpected and most of the time shoots into left occipital and top of the left head with stabbing and tingling sensations. The patient reports that constant movements and weather changes exacerbate the pain, while heat and topical medications provide relief. She denies any recent personal injury or car accidents and has been taking gabapentin and tramadol for pain management. The patient has a history of osteoporosis and more recently osteopenia, along with anxiety disorder, compression fractures, psoriatic arthritis, and osteoarthritis. She was previously seen in the office for hip pain and bursitis, and has been managing her neck pain with exercises to strengthen her neck. - Onset: Just under a year ago - Quality: Aching, stabbing, sharp, heavy, occasional - Severity: 10/10 in the morning, 7/10 during the day - Location: Neck, radiating to the head, on the left side - Exacerbating factors: Constant movements, weather changes - Relieving factors: Heat, topical medications - Affect: Pain impacts daily activities and mood, causing concern due to its severity. - Analgesia: Currently taking gabapentin and tramadol; pain rated 10/10 in the morning and 7/10 during the day. - Adverse Effects: No adverse effects from medications reported. - Activities of Daily Living: Pain affects ability to perform daily activities, particularly in the morning. - Aberrant Drug Related Behaviors: No aberrant behaviors reported. Oswestry Neck Pain and Disability Score=14 PRIOR 07/21/21: Patient presents today via telehealth encounter to discuss bilateral hip xray. Her bilateral hip imaging consistent with small soft tissue calcification adjacent to the right greater trochanter suggestive of old soft tissue trauma or bursitis. No fracture or dislocation is seen. The hip joints are normal. Bones of the pelvis are unremarkable. There are degenerative changes of the lower lumbar spine. Patient continues to endorse bilateral hip pain, left hip worse than right and feels this can be connected to her diverticulitis issues and possibility of partial colectomy. Patient states she had no chance to use diclofenac gel for her knees or hips and wants to proceed with diclofenac gel prior attempting any injections in her hips at this time. 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 She is status post right TKA 2017 and left TKA 2019 at [facility]. She was evaluated by our orthopedic services and referred to us for spinal examination. Patient reports her pain originates in her left buttocks and travels down to her left knee. She denies pain with lumbar extension or flexion pain but reports significant lateral hip pain on both sides, right worse than left. Patient also states she has chronic lower back pain that sometimes radiates into her left buttock and travels down to her left thigh anteriorly with numbness and tingling in her both greater toes. Patient reports her most concerning pain today is her left knee. Recent knee xrays show satisfactory position for her knee replacements bilaterally. Lumbar spine and SIJ imaging from 11/2020 showed pld L1 vertebral body compression fracture, degenerative disc disease, spondylosis and facet arthritis of the lower lumbar spine, and normal-appearing sacroiliac joints. She reports a history of fall in 10/2020 due to ?chronic clumsiness.? Denies any other falls, injury or trauma. Patient reports her pain affects her sleep and keeps her up at night, daily functioning, and mobility as well as her quality of life and mood. Bilateral knee pain is worse with any activity, walking, stairs climbing or weather changes. She has been taking tramadol and Tylenol Arthritis daily with minimal effect. Patient reports she had cortisone injections through [facility]opedic and [facility] offices with little to no effect in her pain. Reports physical therapy for her knees was partially helpful. Denies any recent physical therapy for back or hip pain, chiropractic manipulation, massage, TENS unit or acupuncture. Denies any previous back injections or surgery. Received cervical TPIs and ESIs through [facility]. She denies any fever, chills, weight changes, bladder/bowel dysfunction or saddle anesthesia. She reports intermittent weakness. [facility] Medical History GABINO (generalized anxiety disorder) Mild recurrent major depression Upper respiratory infection Right hand pain Lumbar pain Sacral pain Compression fracture Otitis Osteoporosis Psoriatic arthritis Obesity HTN (hypertension) Psoriasis Osteoarthritis Surgical History S/P rotator cuff repair H/O toe surgery History of colonoscopy History of total left knee replacement (TKR) History of tonsillectomy History of hysterectomy History of total right knee replacement (TKR) Family History Father No problems noted. Mother Mental health disorder Family/Other Substance use disorder Social History Housing: House Alcohol intake: current Alcohol intake frequency: holidays/special occasions only Alcohol type: hard liquor and other Patient Tobacco Use Status: Former Tobacco user Tobacco use type: Cigarette Cigarettes Per Day: 30 Years Smoked: 40 e-Cigarette/Vaping Use: Never Used Second Hand Smoke Exposure: No service: No Current occupational status: retired Current occupation: left hand Cognitive needs: No Hearing needs: No Vision needs: Yes Review of Systems Const Details: - Musculoskeletal: Reports chronic neck pain, denies recent personal injury or car accidents. - Neurological: Reports pain radiating to the head on the left, denies numbness, tingling, or weakness in the arms. - Psychiatric: Reports anxiety disorder. - Cardiovascular: Denies palpitations or chest pain. - Respiratory: Denies dyspnea or cough. - Gastrointestinal: Denies nausea or vomiting. - Ears, Nose, Throat: Denies tinnitus, hearing loss, or dizziness. All systems reviewed & are unremarkable except as noted in HPI and below Physical Exam Vital Signs: Last Vital Signs Pulse 60 09/28/24 09:39 Resp 18 09/28/24 09:39 BP 186/74 H 09/28/24 09:39 Pulse Ox 95 09/28/24 09:39 Oxygen Delivery Method Room Air 09/28/24 09:39 BMI result Body Mass Index 35.6 General: Appears afebrile. Alert and oriented. Mood and affect appropriate. Follows and participates in conversation appropriately. Respiratory effort is unlabored. No cough. Able to transition from sit to stand unassisted. Ambulates with bilaterally normal heel strike and toe off. HEENT Head: Yes normal to inspection, Yes No palpable skull fracture present, Yes normocephalic, Yes atraumatic, Yes occipital foramen tenderness (left) and No Temporal artery tenderness present Eyes General: appearance normal, both eyes and all related structures Pupils: Equal, round and reactive pupils present Neck Neck: Yes normal visual inspection, Yes no lymphadenopathy, No anterior neck swelling, Yes no JVD, No prominent supraclavicular fat pad and Yes prominent dorsocervical fat pad Back/Spine/Pelvis Cervical Spine: cervical muscular tenderness, pain with cervical ROM, No Cervical spine scars present, cervical spasm, No Cervical spine tenderness and No step off deformity Thoracic/Lumbar Spine: thoracic and lumbar spine normal to inspection, No Thoracic/lumbar spine scar(s), thoraco-lumbar ROM limited, No thoracic spinal tenderness and lumbar spinal tenderness at L4 and at L5 Neuro Cranial nerves: Yes Equal, round and reactive pupils present Results Reviewed Results Reviewed: XR CERVICAL SPINE 09/13/24 CLINICAL INFORMATION: M54.2 - Cervicalgia COMPARISON: None available. TECHNIQUE: AP, lateral, swimmer's projection and atlantoodontoid views. FINDINGS: Craniocervical junction is intact. Anterior marginal osteophyte formation and endplate sclerosis from C3-4 to C6-7 levels. Facet joint hypertrophy bilaterally at multiple levels from C3 to C6. No gross malalignment. No acute cortical disruption. Osteopenia versus osteoporosis. Upper airways patent. IMPRESSION: Multilevel spondylosis C3 C7 without acute fracture or gross listhesis. Assessment & Plan Assessment & Plan (1) Cervicalgia: Code(s): M54.2 - Cervicalgia Category: Medical (2) Cervical spondylosis: Code(s): M47.812 - Spondylosis without myelopathy or radiculopathy, cervical region Category: Medical (3) Headache: Code(s): R51.9 - Headache, unspecified Category: Medical (4) Cervicogenic headache: Code(s): G44.86 - Cervicogenic headache Category: Medical (5) Cervico-occipital neuralgia of left side: Code(s): M54.81 - Occipital neuralgia Category: Medical (6) Disc disease, degenerative, cervical: Code(s): M50.30 - Other cervical disc degeneration, unspecified cervical region Category: Medical Plan The plan includes ordering a brain MRI to rule out any vascular or other intracranial causes for the headaches. Patient encouraged to follow-up with her PCP and possibly a Neurologist regarding headaches. Physical therapy is recommended to improve neck strength and range of motion, with a referral to [facility] for convenience per patient's request. We discussed interventional treatments, including radiofrequency ablation or neuromodulation with Sprint PNS trial, avoiding steroids due to the patient's history of osteoporosis and compression fractures. All questions and concerns have been answered and patient agreed with the plan. Follow up for MRI results/after PT and sooner as needed. Patient was informed and verbally consented to the use of an ambient scribe for clinic note documentation during this visit. Orders: Orders MR head/brain wo con 09/28/24 G44.86 - Cervicogenic headache, M47.812 - Spondylosis without myelopathy or radiculopathy, cervical region, M50.30 - Other cervical disc degeneration, unspecified cervical region, M54.81 - Occipital neuralgia, R51.9 - Headache, unspecified PT Evaluation and Treatment 09/28/24 G44.86 - Cervicogenic headache, M47.812 - Spondylosis without myelopathy or radiculopathy, cervical region, M50.30 - Other cervical disc degeneration, unspecified cervical region, M54.2 - Cervicalgia, M54.81 - Occipital neuralgia, R51.9 - Headache, unspecified Coding Level of Care Code New Pt Level 4 (02446) Diagnoses Cervicalgia M54.2 Cervical spondylosis M47.812 Headache R51.9 Cervicogenic headache G44.86 Cervico-occipital neuralgia of left side M54.81 Disc disease, degenerative, cervical M50.30
== END 2024-09-28 10:11 | disposition home or self-care (01) ==
LOC: HO.PMC 09:32
PROVIDERS: PCP Internal Medicine; Visit Provider Nurse Practitioner Family
DX: M54.2 Cervicalgia (principal); M47.812 Spondylosis without myelopathy or radiculopathy, cervical region; G44.86 Cervicogenic headache; M54.81 Occipital neuralgia; M50.30 Other cervical disc degeneration, unspecified cervical region
CPT/HCPCS: 99204

== ENCOUNTER → 2024-09-28 09:31 | Outpatient (BNVA) | payer MEDICARE, MEDICAID, SELFPAY | PROVIDERS: PCP Internal Medicine; Visit Provider Nurse Practitioner Family | DX: M54.2 Cervicalgia (principal); G89.29 Other chronic pain; G44.86 Cervicogenic headache; M47.812 Spondylosis without myelopathy or radiculopathy, cervical region; M54.81 Occipital neuralgia; M81.0 Age-related osteoporosis without current pathological fracture; L40.50 Arthropathic psoriasis, unspecified; Z79.899 Other long term (current) drug therapy | CPT/HCPCS: 99202 ==

== ENCOUNTER 2024-10-19 10:48 | Outpatient (AMB) | payer MEDICARE, MEDICAID, SELFPAY ==
[2024-10-19 10:55] VITALS: BP 139/77; PULSE 70; O2SAT 98; BMI 36.5
--- NOTE | 2024-10-19 10:55 | MHC.OFFVIS ---
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 The neck pain has been persistent, and the patient has recently started physical therapy, attending her first session today. The pain is accompanied by numbness and tingling on the left side of her occipital region, which is intermittent. The patient also reports frequent headaches, which have been more persistent recently. She experiences occasional dizziness, though it is not severe enough to be concerning to her. Her blood pressure and blood tests have been stable per patient, with no abnormalities noted from her last PCP follow up. The MRI results indicated mild age-related changes and generalized volume loss, but no acute intracranial pathology was found. The patient has been advised to follow up with a Neurologist for further evaluation of her headaches. Patient is also aware that chronic neck pain with arthritic and degenerative changes can be contributory to her daily headaches. She has been using Tylenol for headache relief and has avoided NSAIDs due to previous medication use. PRIOR: The patient is a 68-year-old female presenting with chronic neck pain and head pain. The neck pain has been ongoing for just under a year and is attributed to degeneration and arthritis, with pain radiating to the head in the occipital region, worse on the left side. The pain is described as aching, stabbing, sharp, heavy, and occasional, with a severity of 10/10 in the morning and 7/10 during the day. She denies headache in the past and reports headache pain is worse than neck pain. Patient states head pain is unexpected and most of the time shoots into left occipital and top of the left head with stabbing and tingling sensations. The patient reports that constant movements and weather changes exacerbate the pain, while heat and topical medications provide relief. She denies any recent personal injury or car accidents and has been taking gabapentin and tramadol for pain management. The patient has a history of osteoporosis and more recently osteopenia, along with anxiety disorder, compression fractures, psoriatic arthritis, and osteoarthritis. She was previously seen in the office for hip pain and bursitis, and has been managing her neck pain with exercises to strengthen her neck. - Onset: Just under a year ago - Quality: Aching, stabbing, sharp, heavy, occasional - Severity: 10/10 in the morning, 7/10 during the day - Location: Neck, radiating to the head, on the left side - Exacerbating factors: Constant movements, weather changes - Relieving factors: Heat, topical medications - Affect: Pain impacts daily activities and mood, causing concern due to its severity. - Analgesia: Currently taking gabapentin and tramadol; pain rated 10/10 in the morning and 7/10 during the day. - Adverse Effects: No adverse effects from medications reported. - Activities of Daily Living: Pain affects ability to perform daily activities, particularly in the morning. - Aberrant Drug Related Behaviors: No aberrant behaviors reported. Oswestry Neck Pain and Disability Score=14 PRIOR 07/21/21: Patient presents today via telehealth encounter to discuss bilateral hip xray. Her bilateral hip imaging consistent with small soft tissue calcification adjacent to the right greater trochanter suggestive of old soft tissue trauma or bursitis. No fracture or dislocation is seen. The hip joints are normal. Bones of the pelvis are unremarkable. There are degenerative changes of the lower lumbar spine. Patient continues to endorse bilateral hip pain, left hip worse than right and feels this can be connected to her diverticulitis issues and possibility of partial colectomy. Patient states she had no chance to use diclofenac gel for her knees or hips and wants to proceed with diclofenac gel prior attempting any injections in her hips at this time. PRIOR: Patient is a very pleasant 65 years old with history of osteoporosis and osteoarthritis on senior living Prolia and methotrexate presents today for evaluation of chronic bilateral knee pain, left knee worse than right knee. She is status post right TKA 2017 and left TKA 2019 at [facility]. She was evaluated by our orthopedic services and referred to us for spinal examination. Patient reports her pain originates in her left buttocks and travels down to her left knee. She denies pain with lumbar extension or flexion pain but reports significant lateral hip pain on both sides, right worse than left. Patient also states she has chronic lower back pain that sometimes radiates into her left buttock and travels down to her left thigh anteriorly with numbness and tingling in her both greater toes. Patient reports her most concerning pain today is her left knee. Recent knee xrays show satisfactory position for her knee replacements bilaterally. Lumbar spine and SIJ imaging from 11/2020 showed pld L1 vertebral body compression fracture, degenerative disc disease, spondylosis and facet arthritis of the lower lumbar spine, and normal-appearing sacroiliac joints. She reports a history of fall in 10/2020 due to ?chronic clumsiness.? Denies any other falls, injury or trauma. Patient reports her pain affects her sleep and keeps her up at night, daily functioning, and mobility as well as her quality of life and mood. Bilateral knee pain is worse with any activity, walking, stairs climbing or weather changes. She has been taking tramadol and Tylenol Arthritis daily with minimal effect. Patient reports she had cortisone injections through [facility]opedic and [facility] offices with little to no effect in her pain. Reports physical therapy for her knees was partially helpful. Denies any recent physical therapy for back or hip pain, chiropractic manipulation, massage, TENS unit or acupuncture. Denies any previous back injections or surgery. Received cervical TPIs and ESIs through [facility]. She denies any fever, chills, weight changes, bladder/bowel dysfunction or saddle anesthesia. She reports intermittent weakness. [facility] Medical History GABINO (generalized anxiety disorder) Mild recurrent major depression Upper respiratory infection Right hand pain Lumbar pain Sacral pain Compression fracture Otitis Osteoporosis Psoriatic arthritis Obesity HTN (hypertension) Psoriasis Osteoarthritis Surgical History S/P rotator cuff repair H/O toe surgery History of colonoscopy History of total left knee replacement (TKR) History of tonsillectomy History of hysterectomy History of total right knee replacement (TKR) Family History Father No problems noted. Mother Mental health disorder Family/Other Substance use disorder Social History (Reviewed 09/28/24 @ 09:39 by RAMONITA Allen Housing: House Alcohol intake: current Alcohol intake frequency: holidays/special occasions only Alcohol type: hard liquor and other Patient Tobacco Use Status: Former Tobacco user Tobacco use type: Cigarette Cigarettes Per Day: 30 Years Smoked: 40 e-Cigarette/Vaping Use: Never Used Second Hand Smoke Exposure: No service: No Current occupational status: retired Current occupation: left hand Cognitive needs: No Hearing needs: No Vision needs: Yes Review of Systems Const Details: - Neurological: Reports frequent headaches and intermittent dizziness. Denies memory issues. - Musculoskeletal: Reports neck pain with numbness and tingling on the left side. All systems reviewed & are unremarkable except as noted in HPI and below Physical Exam Vital Signs: Last Vital Signs Pulse 70 10/19/24 10:55 BP 139/77 10/19/24 10:55 Pulse Ox 98 10/19/24 10:55 Oxygen Delivery Method Room Air 10/19/24 10:55 BMI result Body Mass Index 36.5 General: Appears afebrile. Alert and oriented. Mood and affect appropriate. Follows and participates in conversation appropriately. Respiratory effort is unlabored. No cough. Able to transition from sit to stand unassisted. Ambulates with bilaterally normal heel strike and toe off. HEENT Head: Yes normal to inspection, Yes No palpable skull fracture present, Yes normocephalic, Yes atraumatic, Yes occipital foramen tenderness (left) and No Temporal artery tenderness present Eyes Pupils: Equal, round and reactive pupils present Neck Neck: Yes normal visual inspection, Yes no lymphadenopathy, No anterior neck swelling, Yes no JVD, No prominent supraclavicular fat pad and Yes prominent dorsocervical fat pad Back/Spine/Pelvis Cervical Spine: cervical muscular tenderness, pain with cervical ROM (extension, axial rotations and lateral bending), No Cervical spine scars present, cervical spasm, No Cervical spine tenderness and No step off deformity Thoracic/Lumbar Spine: thoracic and lumbar spine normal to inspection, No Thoracic/lumbar spine scar(s), thoraco-lumbar ROM limited, No thoracic spinal tenderness and lumbar spinal tenderness at L4 and at L5 Neuro Cranial nerves: Yes Equal, round and reactive pupils present Results Reviewed Results Reviewed: XR CERVICAL SPINE 09/13/24 CLINICAL INFORMATION: M54.2 - Cervicalgia COMPARISON: None available. TECHNIQUE: AP, lateral, swimmer's projection and atlantoodontoid views. FINDINGS: Craniocervical junction is intact. Anterior marginal osteophyte formation and endplate sclerosis from C3-4 to C6-7 levels. Facet joint hypertrophy bilaterally at multiple levels from C3 to C6. No gross malalignment. No acute cortical disruption. Osteopenia versus osteoporosis. Upper airways patent. IMPRESSION: Multilevel spondylosis C3 C7 without acute fracture or gross listhesis. Assessment & Plan Assessment & Plan (1) Headache: Code(s): R51.9 - Headache, unspecified Category: Medical (2) Cervico-occipital neuralgia of left side: Code(s): M54.81 - Occipital neuralgia Category: Medical (3) Cervicalgia: Code(s): M54.2 - Cervicalgia Category: Medical (4) Cervical spondylosis: Code(s): M47.812 - Spondylosis without myelopathy or radiculopathy, cervical region Category: Medical (5) Disc disease, degenerative, cervical: Code(s): M50.30 - Other cervical disc degeneration, unspecified cervical region Category: Medical Plan I discussed the MRI results with the patient today, explaining that there were mild age-related changes and generalized volume loss, but no acute intracranial pathology. I advised her to continue with physical therapy for her neck pain and to follow up with a Neurologist for her headaches. We discussed the potential for further interventions if physical therapy does not alleviate her symptoms, including radiofrequency ablation or neuromodulation with Sprint PNS trial, avoiding steroids due to the patient's history of osteoporosis and compression fractures. All questions and concerns have been answered and patient agreed with the plan. Follow up after PT and sooner as needed. Patient was informed and verbally consented to the use of an ambient scribe for clinic note documentation during this visit. Orders: Referrals Neurology Referral M54.81 - Occipital neuralgia, R51.9 - Headache, unspecified Coding Level of Care Code Est Pt Level 4 (18848) Complex EM visit Add On G2211 Diagnoses Headache R51.9 Cervico-occipital neuralgia of left side M54.81 Cervicalgia M54.2 Cervical spondylosis M47.812 Disc disease, degenerative, cervical M50.30
--- OUTSIDE RECORDS SUMMARY | 2024-10-19 11:28 | XMS_ITS | Clinical Summary ---
Author Organization [facility] Address [address] [id number] Care Team Providers Care Drilling And Production Superintendent Name Role Phone Lily Mcleod Primary Care Provider [phone] Allergies No known active allergies Medications Medication [...] age to complete this topic Care Teams Drilling And Production Superintendent Relationship Specialty Start Date End Date Lily Mcleod [address] [place] [address] [place] [address] PCP - General Family Medicine 07/29/17
--- OUTSIDE RECORDS SUMMARY | 2024-10-19 11:28 | XMS_ITS | Clinical Summary ---
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
== END 2024-10-19 11:09 | disposition home or self-care (01) ==
LOC: HO.PMC 10:49
PROVIDERS: PCP Internal Medicine; Visit Provider Nurse Practitioner Family
DX: R51.9 Headache, unspecified (principal); M54.81 Occipital neuralgia; M54.2 Cervicalgia; M47.812 Spondylosis without myelopathy or radiculopathy, cervical region; M50.30 Other cervical disc degeneration, unspecified cervical region
CPT/HCPCS: 99214; G2211

== ENCOUNTER → 2024-10-19 10:48 | Outpatient (BNVA) | payer MEDICARE, MEDICAID, SELFPAY | PROVIDERS: PCP Internal Medicine; Visit Provider Nurse Practitioner Family | DX: M50.30 Other cervical disc degeneration, unspecified cervical region (principal); M54.81 Occipital neuralgia; M54.2 Cervicalgia; M47.812 Spondylosis without myelopathy or radiculopathy, cervical region | CPT/HCPCS: 99212 ==

== ENCOUNTER 2024-10-23 12:45 | Outpatient (AMB) | payer MEDICARE, MEDICAID, SELFPAY ==
--- NOTE | 2024-10-23 12:49 | A.OFFVIS_ITS ---
Vital Signs 10/23/24 12:50 Height 4 ft 7 in Weight 157 lb BMI 36.5 BP 128/84 Blood Pressure Location Rt brachial Position Sitting Pulse 68 Pulse Source Pulse Oximeter Pulse Oximetry (%) 96 Oxygen Delivery Method Room Air Intake Visit Reasons: INP-Headaches Intake Note: Headache Turkish Rubber Required: No Accompanied by: Daughter Allergies etanercept (From Enbrel) Allergy (Severe, Verified 10/23/24 12:50) rash Seasonal Allergies Allergy (Severe, Verified 10/23/24 12:50) Rash adalimumab (From Humira) Allergy (Intermediate, Verified 10/23/24 12:50) Rash Medication List - Last Reconciled 10/23/24 by SVITLANA Dillard amlodipine 10 mg PO DAILY bupropion HCl SR 150 mg PO DAILY 90 days calcium carbonate-vitamin D3 600 mg-25 mcg (1,000 unit) patient takes 2 caps daily denosumab (Prolia) 60 mg subcut [id number] diclofenac sodium 1% (Arthritis Pain (diclofenac)) 4 grams topical QID PRN epinephrine (EpiPen 2-Celso) 0.3 mg (0.3 mL) IM ONCE PRN fluticasone propionate 0.05% 1 appl topical DAILY PRN fluticasone propionate 110 mcg/actuation 2 puffs inhalation BID PRN fluticasone propionate 50 mcg/actuation 1 spray intranasal BID PRN gabapentin 300 mg PO DAILY hydroxyzine HCl 10 mg PO QID PRN lorazepam 0.5 mg PO BEDTIME PRN 30 days ramipril 10 mg PO DAILY 90 days risankizumab-rzaa (Skyrizi) 150 mg subcut Q12W tramadol 50 mg PO BEDTIME PRN HPI Comments Details: History of Present Illness The patient is a 68-year-old female referred for evaluation of headache per [facility] [place] management, who is accompanied by her daughter. The patient and daughter report they felt the referral was made to review a recent the results of a recent brain MRI without contrast, ordered to assess her new headache, which showed mild white matter changes and cerebral volume loss. PMH is notable for: HTN, mild HLD, psoriatic arthritis on Skyrizi- f/b [facility] rheumatolog, OA, osteoporosis, chronic cervical DJD, hand pain, chronic back pain, compression fracture, depression/anxiety, h/o bilateral closed-angle glaucoma s/p laser surgical repair, h/o bilateral cataract replacement, diverticulitis. Headache: This patient reports 2 distinct headaches, which do not co-occur. 1st headache type started at least a year ago, but no more than a few years ago. This is a left-sided pressure, felt as a weight over her eye. She denies any precipitating or provoking triggers. The 2nd headache started approximately 5 months ago, this is a stabbing headache in the left occipital region- make the head is being stabbed by something, rather than a shooting stabbing pain. Patient again denies any precipitating or triggering factors. However, she notes she has had a left occipital mass for as long as she can remember. Patient currently uses Tylenol and rest for these headaches, though the Tylenol is more effective for the left occipital region headache than the left retrobulbar headache. Patient is currently undergoing PT for cervicalgia in the setting of a known history of cervical spondylosis in the setting of psoriatic arthritis, and osteoarthritis. Currently taking gabapentin 300 mg daily, and tramadol 50 mg sparingly- states has not had as much joint pain since starting Skyrizi The patient has never tried an occipital or similar nerve block of the head. Cerebral Volume Loss: The patient expressed concern following her brain MRI report, which was reported to her by the ordering provider as more prominent cerebral volume loss compared to her peers. The patient does endorse some forgetfulness, more so short-term forgetfulness. However, her long-term memory is intact. Patient lives alone with close family support. She is generally pretty active, though she does not engage in regularly structured physical activity. She denies usual dizziness; however, in the last few months, she may have orthostatic lightheadedness if she has been out in the heat or has bent over for a while, such as when gardening. She endorses that she probably does not drink as much fluid as she should. She does vape nicotine. Review of Systems - Neurologic: Reports lightheadedness associated with sun exposure and bending over, and a history of a self-limited concussion from childhood. Endorses STM forgetfulness; however, long-term memory is intact. Denies any visual aura, photophobia, nausea, or vomiting. - Musculoskeletal: Reports joint pain before Skyrizi therapy, now significantly improved. - Cardiovascular: Denies palpitations. - Respiratory: Denies any shortness of breath. - Sleep: She reports her sleep has been ?bad? for as long as she can remember. She states she has fragmented sleep, and then cannot go back to sleep. She endorses snoring. Has a family h/o sleep apnea. - Gastrointestinal: Denies constipation. - Dermatologic: Reports skin and nail changes associated with psoriatic arthritis. - Psychiatric: Reports mood is usually fine Family History - Reports her mother developed dementia/Alzheimer's symptoms in her early 70s and in her late 70s. Headache questionnaire: Age/time of onset: * Left occipital stabbing headaches: 5 months ago, started waking up with a stabbing left-sided occipital headache. * Left eye pressure: at least for a few years- but not exactly sure how long. Preceding causes: unsure- though dtr notes that pt has had some falls- some r/t mechanical falls (stepped on board in the wrong spot and fell), others were d/t clumsiness (unsure when). Previous work-up: * Last eye exam: almost a year ago, next visit scheduled in a few weeks- [facility] [place] * h/o laser tx for bilateral closed-angle glaucoma attack * Brain MRI- mild WM changes and volume loss Types of headache disorders: 2- occurring at separate times 1st typical current headache characteristics: Prodrome symptoms: left-sided head discomfort Aura: denies Pain intensity: varied- moderate-severe Location, quality, characteristics: Initially stabbing, now more like a sharp ache Associated symptoms: denies Postdrome: denies Aggravating factors: denies Triggers: certain head positions Time of day: No specific time of day Duration and Frequency: the initial severe stabbing lasted 10 minutes, the more current aching headaches last approx 1 hour, occurring 1-2 times in a day, typically 3 days per week. Headache impact on patient's quality of life: just needs to rest. Headache treatment for this headache * Current acute medication use/interventions: Tylenol 1000mg 1-2 x's w/ usual positive effect. * Current preventative medication use: none * Current non-pharmacological interventions: rest 2nd typical current headache characteristics: Prodrome symptoms: watery left eye Aura: denies Pain intensity: varies- moderate Location, quality, characteristics: pressure behind the left eye- like a weight over the eye Associated symptoms: ipsilateral left watery eye. Denies associated red eye, nasal congestion, ptosis, or weakness. Postdrome: denies Aggravating factors: denies Triggers: denies Time of day: later in the afternoon Duration and Frequency: varies, can be brief, but other times can last longer- not a minute, but not hours Headache impact on patient's quality of life: just needs to rest. Headache treatment for this headache: * Current acute medication use/interventions: Tylenol 1000mg 1-2 x's- not as effective for this headache * Current preventative medication use: none * Current non-pharmacological interventions: rest and apply a cool compress Headache Lifestyle Factors * Caffeine intake limited to 1-2 cups of decaffeinated coffee per day. * Rest and acetaminophen for headache relief. * Reports sleep disturbances impacting overall wellness. Social History * Lives alone, with family nearby for support. * Is active in gardening and maintaining her living environment. * Participates in household tasks and visits with family regularly for engagement. Nutrition * The patient's dietary habits indicate she should increase water intake. She consumes decaffeinated coffee and is involved in preparing meals. Exercise * Engages regularly in gardening, which provides consistent physical activity. * Additional exercises include [id number] and leg lifts to address hip degeneration, though she does not participate in structured exercise routines. * Currently doing PT for her neck- per pain management. Sleep * Reports chronic fragmented sleep, typically falling asleep around 9:30 PM and waking around midnight, then returning to sleep after watching TV. Substance Use History * Currently vapes nicotine-patient states she has reduced her use to 1 cartridge every 1-2 days, which is less than other people use. * Denies use of alcohol, marijuana, or CBD products. 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 Her 1st profession was has a [employer] times 10 years. [facility] Medical History GABINO (generalized anxiety disorder) Mild recurrent major depression Upper respiratory infection Right hand pain Lumbar pain Sacral pain Compression fracture Otitis Osteoporosis Psoriatic arthritis Obesity HTN (hypertension) Psoriasis Osteoarthritis Surgical History S/P rotator cuff repair H/O toe surgery History of colonoscopy History of total left knee replacement (TKR) History of tonsillectomy History of hysterectomy History of total right knee replacement (TKR) Family History Father No problems noted. Mother Mental health disorder Family/Other Substance use disorder Social History Housing: House Alcohol intake: current Alcohol intake frequency: holidays/special occasions only Alcohol type: hard liquor and other Patient Tobacco Use Status: Former Tobacco user Tobacco use type: Cigarette Cigarettes Per Day: 30 Years Smoked: 40 e-Cigarette/Vaping Use: Never Used Second Hand Smoke Exposure: No service: No Current occupational status: retired Current occupation: left hand Cognitive needs: No Hearing needs: No Vision needs: Yes Physical Exam Vital Signs: Last Vital Signs Pulse 68 10/23/24 12:50 BP 128/84 10/23/24 12:50 Pulse Ox 96 10/23/24 12:50 Oxygen Delivery Method Room Air 10/23/24 12:50 BMI result Body Mass Index 36.5 Const Orientation/consciousness: patient oriented x3 Resp Effort & Inspection: normal respiratory effort and able to speak in complete sentences Neuro Other: No palpable scalp tenderness. Very occasional STM lapses General: patient oriented x3 Cranial nerves: Yes CN's II-XII intact bilaterally Cognition (Neuro): normal cognition Gait exam (Neuro): Normal gait present Motor exam (neuro): 5/5 motor strength present throughout Deep tendon reflexes (DTR's): Right triceps reflex intensity grade: 2+, Left triceps reflex intensity grade: 2+, Rt Biceps (C5, C6): 2+, Left biceps reflex intensity grade: 2+, Right brachioradialis reflex intensity grade: 2+, Left brachioradialis reflex intensity grade: 2+, Right patellar reflex intensity grade: 2+ and Left patellar reflex intensity grade: 2+ Coordination: [id number] test normal, tandem gait normal and Romberg test negative Pupils: Normal pupillary reactivity/response: bilateral Psych Appearance: grossly normal Mental Status: mental status grossly normal Speech and movement: Normal speech and movement present Affect: normal affect Attitude: cooperative Thought process: Normal thought process present Results Reviewed Results Reviewed: Exam Date:?10/03/2024 at [facility] EXAM: MR BRAIN WITHOUT CONTRAST INDICATION: Nonspecific headaches, occipital neuralgia TECHNIQUE: Multiplanar multisequence imaging of the brain was obtained, without intravenous contrast administration. COMPARISON: None FINDINGS: There are no acute territorial infarcts seen within the brain on diffusion images. No midline shift, mass effect or hemorrhage is seen. Ventricular system is symmetrical, without hydrocephalus. Few scattered nonspecific small T2 hyperintense foci are present along the periventricular white matter suggestive of microvascular changes. Generalized mild sulcal dilatation is seen consistent with volume loss. Craniocervical junction is preserved and the fourth ventricle is in the midline. Visualized orbits and region of the sella are preserved. Paranasal and mastoid sinuses are clear. The calvarium is intact. IMPRESSION: No acute intracranial pathology seen. Mild age-related involutional changes and generalized volume loss. Electronically signed on 10/03/2024 1:47:00 PM by Galina Lynn M.D. 2013, c-spine MRI w/o: IMPRESSION: 1. Mild central disc protrusion C4-5 causing no impression upon the dural sac or nerve roots. 2. Mild disc herniation C5-6 causing mild flattening of the dural sac without cord compression or nerve root compression. Assessment & Plan Assessment & Plan (1) Left-sided headache: Code(s): R51.9 - Headache, unspecified Category: Medical (2) Short-term memory loss: Code(s): R41.3 - Other amnesia Category: Medical (3) Mass of scalp: Comment: Occipital region Code(s): R22.0 - Localized swelling, mass and lump, head Category: Medical (4) Fatigue: Comment: [place] sleepiness scale 11 Code(s): R53.83 - Other fatigue Category: Medical Plan Discussion Notes During the visit, we explored her headaches in detail, likely differentiating between for 2 distinct headache types. Patient is asked to more closely monitor her symptoms, as this will help us in better understanding what the underlying diagnosis and thus any additional workup or treatment is indicated. Regarding the left occipital headache, differentials include cervical-related and distinct occipital neuralgia-related headaches. A referral for ultrasound imaging for her occipital lump was considered to rule out any structural contributions. Regarding the left more retro-orbital headache, differentials include possible migraine, possible TAC, and secondary headache process. I discussed at length the potential implications of the patient's cerebral volume loss, noting that for her age group, this may not be deemed excessive but warrants observation. We planned for fasting labs, including specific markers to rule out an inflammatory process or nutritional deficiencies contributing to her symptoms. Given concerns about memory and family history, we discussed possible evaluations for cognitive function and the feasibility of amyloid PET imaging, but emphasized assessing current treatment interactions with Zeus prior to further diagnostics. Overall, the treatment plans, including trial of riboflavin, magnesium, Co Q10, rest, and hydration strategies, were discussed for current symptom relief, with encouragement to maintain a healthy activity and dietary regimen to support overall wellness. Patient is also encouraged to consider continuing to wean off of vaping nicotine. Patient was informed and verbally consented to the use of an ambient scribe for clinic note documentation during this visit. You are advised to undergo: * Fasting lab workup * Ultrasound soft tissue of left occipital region * In-lab sleep study For brain MRI results showing cerebral volume loss: * Lab testing as above * You will conduct a cognitive test, such as an MMSE, atrial follow-up visit * Future considerations: Amyloid PET scan, APOE genetic testing, and if testing were positive consideration of anti amyloid targeted therapies. For overall headache management: * Optimize good self-care, including but not limited to maintaining a healthy diet, adequate fluid intake, adequate sleep, and engaging in regular physical activity. * Track headaches and both positive and negative effects of your headache treatment trials, especially after any treatment regimen changes. * Migraine [employer]rep is one of many headache tracking apps. * A simple paper calendar is also a good option. * Increase daily fluid intake to include at least 64-80 oz of fluid per day, including 16-24 fluid oz of sugar free/reduce sugar Gatorade/Powerade/liquid IV- to reduce orthostatic lightheadedness * Continue physical therapy her pain management * Hello with pain management as scheduled * Continued to reduce vaping nicotine For acute (as needed) headache treatment: It is important to take acute medications at the first sign of headache. However, please be aware that frequently using most acute medications may increase the frequency of your headache attacks, as well as make your other treatments less effective.. * May continue Tylenol 650-1000 mg every 4-6 hours as needed Previous acute headache medication trials: None other Acute headache medication contraindications: None at this time For headache prevention medication: Preventative medications should be taken routinely as prescribed for best effect, it may take several weeks for full effect to take effect. * Start Riboflavin 400mg daily in the morning * This is generally well tolerated, however some people may experience mild abdominal discomfort from use. * This will cause your urine to become bright yellow or orange, which is expected and not of any concern. * Start Co Q10 400 mg daily in the morning * Take with a higher fat foods * Start Magnesium 400mg daily at bedtime * Magnesium comes in many subtypes, such as magnesium oxide, glycinate, citrate, and even try magnesium combinations. Additionally magnesium comes in many forms, including tablets, capsules, powders or even liquid formulations. There is not a specific magnesium subtype or form known to be significantly more effective than another. Rather, the magnesium subtype inform that you best tolerate, is the best version for you. * Possible side effects of magnesium include, but are not limited to, GI upset, abdominal cramping, loose stools, and diarrhea Previous headache prevention medication trials: None Headaches prevention medication contraindications: None at this time If you have not yet, we encourage you to enroll in the [facility] patient portal. We will follow-up upon review of above and with a follow-up clinic visit in 6 weeks to complete MMSE and again in 6 months or sooner as needed. Orders: Orders Erythrocyte Sedimentation Rate 10/23/24 F41.1 - Generalized anxiety disorder, I10 - Essential (primary) hypertension, L40.50 - Arthropathic psoriasis, unspecified, R41.3 - Other amnesia, R53.83 - Other fatigue Comprehensive [place]. Panel Fast 10/23/24 F41.1 - Generalized anxiety disorder, I10 - Essential (primary) hypertension, L40.50 - Arthropathic psoriasis, unspecified, R41.3 - Other amnesia, R53.83 - Other fatigue Vitamin B12 and Folate 10/23/24 F41.1 - Generalized anxiety disorder, I10 - Essential (primary) hypertension, L40.50 - Arthropathic psoriasis, unspecified, R41.3 - Other amnesia, R53.83 - Other fatigue Vitamin B1 10/23/24 E51.9 - Thiamine deficiency, unspecified, F41.1 - Generalized anxiety disorder, I10 - Essential (primary) hypertension, L40.50 - Arthropathic psoriasis, unspecified, R41.3 - Other amnesia, R53.83 - Other fatigue Magnesium 10/23/24 F41.1 - Generalized anxiety disorder, I10 - Essential (primary) hypertension, L40.50 - Arthropathic psoriasis, unspecified, R41.3 - Other amnesia, R53.83 - Other fatigue TSH reflex Free T4 10/23/24 F41.1 - Generalized anxiety disorder, I10 - Essential (primary) hypertension, L40.50 - Arthropathic psoriasis, unspecified, R41.3 - Other amnesia, R53.83 - Other fatigue EEG electroencephalogram 10/23/24 I99.8 - Other disorder of circulatory system, R41.3 - Other amnesia, R51.9 - Headache, unspecified, R90.82 - White matter disease, unspecified C Reactive Protein 10/23/24 F41.1 - Generalized anxiety disorder, I10 - Essential (primary) hypertension, L40.50 - Arthropathic psoriasis, unspecified, R41.3 - Other amnesia, R53.83 - Other fatigue Complete Blood Count Auto Diff 10/23/24 F41.1 - Generalized anxiety disorder, I10 - Essential (primary) hypertension, L40.50 - Arthropathic psoriasis, unspecified, R41.3 - Other amnesia, R53.83 - Other fatigue Homocysteine 10/23/24 F41.1 - Generalized anxiety disorder, I10 - Essential (primary) hypertension, L40.50 - Arthropathic psoriasis, unspecified, R41.3 - Other amnesia, R53.83 - Other fatigue Lyme IgG/IgM w/reflex to WB 10/23/24 F41.1 - Generalized anxiety disorder, I10 - Essential (primary) hypertension, L40.50 - Arthropathic psoriasis, unspecified, R41.3 - Other amnesia, R53.83 - Other fatigue Syphilis Screen 10/23/24 F41.1 - Generalized anxiety disorder, I10 - Essential (primary) hypertension, L40.50 - Arthropathic psoriasis, unspecified, R41.3 - Other amnesia, R53.83 - Other fatigue Methylmalonic Acid 10/23/24 F41.1 - Generalized anxiety disorder, I10 - Essential (primary) hypertension, L40.50 - Arthropathic psoriasis, unspecified, R41.3 - Other amnesia, R53.83 - Other fatigue RT PSG in-lab sleep study 10/23/24 G47.9 - Sleep disorder, unspecified, R06.83 - Snoring, R41.3 - Other amnesia, R53.83 - Other fatigue US soft tiss head and/or neck Today R22.0 - Localized swelling, mass and lump, head Medications: New magnesium oxide may hold for loose stools 400 mg PO BEDTIME 90 tabs 3RF 90 days coenzyme Q10 Daily in a.m.. Take with higher fat food 400 mg PO DAILY 90 caps 3RF 90 days riboflavin (vitamin B2) 400 mg PO DAILY 90 tabs 3RF 90 days Coding Level of Care Code New Pt Level 4 (75520) Complex EM visit Add On G2211 Diagnoses Left-sided headache R51.9 Short-term memory loss R41.3 Mass of scalp R22.0 Fatigue R53.83
[2024-10-23 12:50] VITALS: BP 128/84; PULSE 68; O2SAT 96; BMI 36.5
--- OUTSIDE RECORDS SUMMARY | 2024-10-23 13:59 | XMS_ITS | Clinical Summary ---
Author Organization [address] [place] [address] Address [address] [place] [address] Phone Care Team Providers Care Blade Boner Name Role Phone Lily Mcleod Primary Care Provider Surgical History Surgery Date Site/Laterality Comments TOTAL KNEE ARTHROPLASTY 02/2016 PROCEDURE: UT ARTHRP KNE CONDYLE&PLATU MEDIAL&LAT COMPARTMENTS OTHER SURGICAL HISTORY 2013 Left PROCEDURE: ---- OTHER ----; COMMENT: LEFT SHOULDER/ROTATOR CUFF OTHER SURGICAL HISTORY 2013 Right PROCEDURE: ---- OTHER ----; COMMENT: RIGHT SHOULDER/ROTATOR CUFF OTHER SURGICAL HISTORY 02/2004 PROCEDURE: ---- OTHER ----; COMMENT: SMALL BOWEL OBSTRUCTION SURGERY HYSTERECTOMY [id number] PROCEDURE: HISTORICAL HYSTERECTOMY HYSTERECTOMY PROCEDURE:HYSTERECTOMY JOINT REPLACEMENT [...] Documents on File Type Date Recorded Patient Manager [employer] Expl anation Health Care Decision (hx) 02/27/2018 AD FREITAS DIRECTIVE Health Care Decision (hx) 02/27/2018 AD FREITAS DIRECTIVE Health Care Decision (hx) 02/27/2018 AD FREITAS DIRECTIVE Care Teams Blade Boner Relationship Specialty Start Date End Date Lily Mcleod FNP [address] [place] [address] [place] [id number] PCP - General Internal Medicine 11/14/17
--- OUTSIDE RECORDS SUMMARY | 2024-10-23 13:59 | XMS_ITS | Clinical Summary ---
Author Organization [facility] Address [address] [id number] Care Team Providers Care Professor Of Industrial Technology Name Role Phone Lily Mcleod Primary Care Provider [phone] Allergies No known active allergies Medications Medication [...] age to complete this topic Care Teams Professor Of Industrial Technology Relationship Specialty Start Date End Date Lily Mcleod [address] [place] [address] [place] [address] PCP - General Family Medicine 07/29/17
== END 2024-10-23 14:41 | disposition home or self-care (01) ==
LOC: HO.HSMS 12:46
PROVIDERS: PCP Internal Medicine; Visit Provider Nurse Practitioner Family
DX: R51.9 Headache, unspecified (principal); R41.3 Other amnesia; R22.0 Localized swelling, mass and lump, head; R53.83 Other fatigue
CPT/HCPCS: 99204; G2211

== ENCOUNTER → 2024-10-23 12:45 | Outpatient (BNVA) | payer MEDICARE, MEDICAID, SELFPAY | PROVIDERS: PCP Internal Medicine; Visit Provider Nurse Practitioner Family | DX: R51.9 Headache, unspecified (principal); R41.3 Other amnesia; R20.0 Anesthesia of skin; R53.83 Other fatigue | CPT/HCPCS: 99202 ==

== ENCOUNTER 2024-11-13 10:01 | Outpatient (REF) | payer MEDICARE, MEDICAID, SELFPAY ==
--- NOTE | 2024-11-13 12:07 | EEG_ITS ---
Roomed Performed: 402 Reason: Headaches, other amnesia History: GABINO (generalized anxiety disorder), Mild recurrent major depression, Right hand pain, Lumbar pain, Sacral pain, Compression fracture, Otitis, Osteoporosis, Psoriatic arthritis, Obesity, HTN (hypertension), Psoriasis, Osteoarthritis- pt c/o frequent headaches in the left occipital region- with pain in the left eye- headaches weekly last one was a few days ago- headaches can last throughout a day- MRI of brain showed mild WM changes and volume loss Medication: amlodipine, bupropion HCl, calcium carbonate-vitamin D3, Prolia, diclofenac sodium, epinephrine,fluticasone propionate, fluticasone propionate, gabapentin, hydroxyzine, orazepam, ramipril, risankizumab-rzaa (Skyrizi), tramadol Technical description: Photic stimulation: Completed Hyperventilation: Performed Behavioral state: cooperative- restless at times State of Consciousness: awake Skull defect: bump is noted in the left occipital region Sedation: no Handedness: Left Duration of study:31 min 11sec This is a 16 channel EEG with an EKG lead. Patient is reported awake during the tracing. Background EEG rhythm is 12-14 hertz 5-50 microvolt posteriorly lower amplitude fast anteriorly. Photic stimulation does not produce any significant driving. Hyperventilation is unremarkable. Rare right frontotemporal theta range slowing was noted. No definite sharp waves or spikes were noted. Impression: Mildly abnormal EEG revealing right frontotemporal dysfunction but no epileptic discharges. If seizure disorder is strongly suspected, further EEG monitoring with 48 hour EEG is recommended. MTDD
--- OUTSIDE RECORDS SUMMARY | 2024-11-13 12:08 | XMS_ITS | Clinical Summary ---
Author Organization [facility] Address [address] [id number] Care Team Providers Care Sales Contract Administrator Name Role Phone Lily Mcleod Primary Care Provider [phone] Allergies No known active allergies Medications Medication [...] age to complete this topic Care Teams Sales Contract Administrator Relationship Specialty Start Date End Date Lily Mcleod [address] [place] [address] [place] [address] PCP - General Family Medicine 07/29/17
--- OUTSIDE RECORDS SUMMARY | 2024-11-13 12:08 | XMS_ITS | Clinical Summary ---
Author Organization [address] [place] [address] Address [address] [place] [address] Phone Care Team Providers Care Coin Teller Name Role Phone Lily Mcleod Primary Care Provider Surgical History Surgery Date Site/Laterality Comments TOTAL KNEE ARTHROPLASTY 02/2016 PROCEDURE: [place] ARTHRP KNE CONDYLE&PLATU MEDIAL&LAT COMPARTMENTS OTHER SURGICAL HISTORY 2013 Left PROCEDURE: ---- OTHER ----; COMMENT: LEFT SHOULDER/ROTATOR CUFF OTHER SURGICAL HISTORY 2013 Right PROCEDURE: ---- OTHER ----; COMMENT: RIGHT SHOULDER/ROTATOR CUFF OTHER SURGICAL HISTORY 02/2004 PROCEDURE: ---- OTHER ----; COMMENT: SMALL BOWEL OBSTRUCTION SURGERY HYSTERECTOMY [id number] PROCEDURE: HISTORICAL HYSTERECTOMY HYSTERECTOMY PROCEDURE:HYSTERECTOMY JOINT REPLACEMENT [...] Documents on File Type Date Recorded Patient Jewelry Bearing Maker Expl anation Health Care Decision (hx) 02/27/2018 AD FREITAS DIRECTIVE Health Care Decision (hx) 02/27/2018 AD FREITAS DIRECTIVE Health Care Decision (hx) 02/27/2018 AD FREITAS DIRECTIVE Care Teams Coin Teller Relationship Specialty Start Date End Date Lily Mcleod FNP [address] [place] [address] [place] [address] PCP - General Internal Medicine 11/14/17
== END 2024-11-13 10:02 | disposition home or self-care (01) ==
LOC: HO.NEURO 10:01
PROVIDERS: PCP Internal Medicine; Visit Provider Nurse Practitioner Family
DX: R41.3 Other amnesia (principal); R51.9 Headache, unspecified; R90.82 White matter disease, unspecified; I99.8 Other disorder of circulatory system; R94.01 Abnormal electroencephalogram [EEG]
CPT/HCPCS: 95816

== ENCOUNTER 2024-11-13 11:40 | Outpatient (REF) | payer MEDICARE, MEDICAID, SELFPAY ==
[2024-11-13 12:24] LABS: MANUAL DIFF FLAG NO
[2024-11-13 12:40] LABS: Hematocrit 46.4 % (37.0-47.0); Hemoglobin 14.6 g/dl (12.0-16.0); Imm Gran Abs Auto 0.03 X10*3/uL (0.00-0.03); Imm Gran Pct Auto 0.5 % (0.0-0.4); Lymphocytes Absolute Auto 1.9 X10*3/uL (1.2-4.9); Mean Corpuscular HGB Conc 31.5 g/dl (31.0-35.0); Mean Corpuscular Hemoglobin 25.3 pg (27.0-33.0); Mean Corpuscular Volume 80.6 fL (80.0-98.0); NRBC Abs Auto 0.000 X10*3/uL (0.0-0.012); NRBC Pct Auto 0.0 /100WBC (0.0-0.2); Platelet Count 258 X10*3/uL (160-400); Red Blood Count 5.76 X10*6/uL (4.20-5.50); White Blood Count 5.7 X10*3/uL (4.8-10.8)
[2024-11-13 13:41] LABS: Anion Gap 11 (12-20)
[2024-11-13 13:45] LABS: Alanine Aminotransferase 23 U/L (0-31); Albumin Level 4.7 g/dL (3.5-5.0); Alkaline Phosphatase 70 U/L (39-117); Aspartate Amino Transferase 27 U/L (5-31); Blood Urea Nitrogen 17 mg/dL (9-16); Calcium 8.9 mg/dL (8.4-10.2); Carbon Dioxide 32 mmol/L (22-29); Chloride 107 mmol/L (96-108); Estimated Glomerular Filt Rate > 60; Magnesium 2.2 mg/dL (1.6-2.6); Potassium 4.3 mmol/L (3.3-5.1); Sodium 146 mmol/L (135-145); Total Protein 7.6 g/dL (6.5-8.0)
[2024-11-13 14:03] LABS: Folate 14.5 ng/mL (> or = 4.0); Vitamin B12 1205 pg/mL (200-900)
[2024-11-14 06:53] LABS: Lyme Abs Screen <0.90 index
[2024-11-14 09:10] LABS: Syphilis Screen Nonreactive (Nonreactive)
== END 2024-11-13 11:41 | disposition home or self-care (01) ==
LOC: HO.LAB 11:40
PROVIDERS: PCP Internal Medicine; Visit Provider Nurse Practitioner Family
DX: I10 Essential (primary) hypertension (principal); F41.1 Generalized anxiety disorder; R53.83 Other fatigue; R41.3 Other amnesia; L40.50 Arthropathic psoriasis, unspecified; E51.9 Thiamine deficiency, unspecified
CPT/HCPCS: 36415; 80053; 82607; 82746; 83090; 83735; 83921; 84425; 84443; 85025; 85652; 86140; 86617; 86618; 86780

== ENCOUNTER → 2024-11-13 12:07 | Outpatient (BNV) | payer MEDICARE, MEDICAID, SELFPAY | PROVIDERS: PCP Internal Medicine; Visit Provider Psychiatry & Neurology Neurology | DX: R41.3 Other amnesia (principal) | CPT/HCPCS: 95816 ==

== ENCOUNTER 2024-11-20 09:56 | Outpatient (AMB) | payer MEDICARE, MEDICAID, SELFPAY ==
--- NOTE | 2024-11-20 10:04 | A.OFFPC_ITS ---
Vital Signs 11/20/24 10:05 Height 4 ft 7 in Weight 154 lb 8 oz BMI 35.9 BP 122/80 Blood Pressure Location Lt brachial Position Sitting Pulse 70 Pulse Source Pulse Oximeter Pulse Oximetry (%) 97 Oxygen Delivery Method Room Air Intake Visit Reasons: depression Assistant Front Desk Manager Required: No Accompanied by: Self / Same As Patient Allergies etanercept (From Enbrel) Allergy (Severe, Verified 11/20/24 10:20) rash Seasonal Allergies Allergy (Severe, Verified 11/20/24 10:20) Rash adalimumab (From Humira) Allergy (Intermediate, Verified 11/20/24 10:20) Rash Medication List - Last Reconciled 11/20/24 by Rosalie Oneil MD amlodipine 10 mg PO DAILY bupropion HCl SR 150 mg PO DAILY 90 days calcium carbonate-vitamin D3 600 mg-25 mcg (1,000 unit) patient takes 2 caps daily coenzyme Q10 400 mg PO DAILY 90 days denosumab (Prolia) 60 mg subcut [id number] diclofenac sodium 1% (Arthritis Pain (diclofenac)) 4 grams topical QID PRN epinephrine (EpiPen 2-Celso) 0.3 mg (0.3 mL) IM ONCE PRN fluticasone propionate 0.05% 1 appl topical DAILY PRN fluticasone propionate 110 mcg/actuation 2 puffs inhalation BID PRN fluticasone propionate 50 mcg/actuation 1 spray intranasal BID PRN gabapentin 300 mg PO DAILY hydroxyzine HCl 10 mg PO QID PRN lorazepam 0.5 mg PO BEDTIME PRN 30 days magnesium oxide 400 mg PO BEDTIME 90 days ramipril 10 mg PO DAILY 90 days riboflavin (vitamin B2) 400 mg PO DAILY 90 days risankizumab-rzaa (Skyrizi) 150 mg subcut Q12W tramadol 50 mg PO BEDTIME PRN Tobacco use date assessed: 11/20/24 Fall risk assessment: 1 Fall in past year Last assessed Fall Risk: 11/20/24 Dental Screening Dental Screen Date: 11/20/24 Did you have a dental visit in the last 12 months?: Yes Did you have a dental problem in the last 6 months where you did not have access to dental care?: No Was dental information given to patient?: Patient has dentist HPI HPI Comments History of Present Illness Details The patient is a 68-year-old female presenting with a follow-up on her chronic conditions, including hypertension, depression, and psoriatic arthritis. Hypertension is well-managed with amlodipine and ramipril, maintaining stable blood pressure levels. Depression is controlled with bupropion, with no recent exacerbations reported. Psoriatic arthritis is managed with SKDC and Prolia, with occasional tramadol use for pain. Cervical spondylosis was identified via neck x-ray, and headaches have improved with physical therapy. Brain atrophy was noted on MRI, leading to a neurologist referral; EEG showed mild right frontotemporal dysfunction. A sebaceous cyst on the head has been stable and previously evaluated as benign. [facility] Medical History GABINO (generalized anxiety disorder) Mild recurrent major depression Upper respiratory infection Right hand pain Lumbar pain Sacral pain Compression fracture Otitis Osteoporosis Psoriatic arthritis Obesity HTN (hypertension) Psoriasis Osteoarthritis Surgical History S/P rotator cuff repair H/O toe surgery History of colonoscopy History of total left knee replacement (TKR) History of tonsillectomy History of hysterectomy History of total right knee replacement (TKR) Family History Father No problems noted. Mother Mental health disorder Family/Other Substance use disorder Social History Housing: House Alcohol intake: current Alcohol intake frequency: holidays/special occasions only Alcohol type: hard liquor and other Patient Tobacco Use Status: Former Tobacco user Tobacco use type: Cigarette Cigarettes Per Day: 30 Years Smoked: 40 e-Cigarette/Vaping Use: Never Used Second Hand Smoke Exposure: No service: No Current occupational status: retired Current occupation: left hand Cognitive needs: No Hearing needs: No Vision needs: Yes Questionnaire Thrive Questionnaire Date Thrive assessed: 07/08/24 I am a: Patient What is your living situation today?: I have a steady place to live Within the past 12 months, did the food you bought not last and you didn't have the money to get more?: Never true Within the past 12 months, did you worry whether your food would run out before you got money to buy more?: Never true Do you have trouble paying for medicines?: No Do you have trouble getting transportation to medical appointments?: No Do you have trouble paying your heating and electricity bill?: No Do you have trouble taking care of your child, family member or friend?: No Do you have trouble with day-to-day activities such as bathing, preparing meals, shopping, managing finances, etc.?: No Are you currently unemployed and looking for a job?: No Are you interested in more education?: No Please select the resources that you would like help with: None Currently or been in a relationship where the following occur: No concerns reported THRIVE Score: 0 AUDIT C Alcohol Use Questionnaire (AUDIT-C) 1. How often do you have a drink containing alcohol?: Monthly or less 2. How many drinks containing alcohol do you have on a typical day when you are drinking?: 1 or 2 3. How often do you have six or more drinks on one occasion?: Never Total Score: 1 Score Reviewed/Action Taken: No GBAINO-7 AMB Questionnaire GABINO-7 Date GABINO - 7 assessed: 07/10/24 Source: Developed by Drs. Ruben Abel, Regla Saleh, Rome Jurado and colleagues, with an educational jermaine from [employer]. Review of Systems Const All systems reviewed & are unremarkable except as noted in HPI and below Card Denies chest pain at rest, Denies chest pain with activity, Denies edema, Denies irregular heart rhythm, Denies claudication, Denies dyspnea, Denies dyspnea on exertion, Denies orthopnea, Denies paroxysmal nocturnal dyspnea and Denies slow heart rate Resp Denies cough, Denies dyspnea and Denies dyspnea on exertion GI Denies abdominal pain, Denies change in bowel habits, Denies excessive flatus, Denies nausea and Denies vomiting Physical exam (Primary Care) Vital Signs: Last Vital Signs Pulse 70 11/20/24 10:05 BP 122/80 11/20/24 10:05 Pulse Ox 97 11/20/24 10:05 Oxygen Delivery Method Room Air 11/20/24 10:05 BMI result Body Mass Index 35.9 Tobacco/Smoking Status: Tobacco use Status Tobacco use date assessed 11/20/24 11/20/24 10:10 Patient Tobacco Use Status Former Tobacco user 11/20/24 10:10 Tobacco use type Cigarette 11/20/24 10:10 e-Cigarette/Vaping Use Never Used 11/20/24 10:10 Thrive Assessment: Date of Thrive Assessment Date Thrive assessed 07/08/24 11/20/24 10:10 Currently or been in a relationship where the following occur: No concerns reported Resp Effort & Inspection: normal respiratory effort Auscultation: clear to auscultation bilaterally Cardio Jugular venous distension: no JVD Rate: regular rate Rhythm: regular rhythm Heart sounds: S1 normal heart sound present and S2 normal heart sound present Extrem General: Yes full ROM Coding Level of Care Code Est Pt Level 4 (33260) Complex EM visit Add On G2211 Diagnoses Mild recurrent major depression F33.0 GABINO (generalized anxiety disorder) F41.1 HTN (hypertension) I10 Pure hypercholesterolemia E78.00 Psoriatic arthritis L40.50 Time Spent (min) 21 Assessment & Plan Assessment & Plan (1) Mild recurrent major depression: Code(s): F33.0 - Major depressive disorder, recurrent, mild Category: Medical (2) GABINO (generalized anxiety disorder): Code(s): F41.1 - Generalized anxiety disorder Category: Medical (3) HTN (hypertension): Code(s): I10 - Essential (primary) hypertension Category: Medical (4) Pure hypercholesterolemia: Code(s): E78.00 - Pure hypercholesterolemia, unspecified Category: Medical (5) Psoriatic arthritis: Comment: Enbrel 02/2020- injection site reaction after 2 injections switch to Humira 03/2020. Humira discontinued due to injection site reaction. Orencia 11/2020-March 2022, no longer covered by insurance company, appeal was denied. Methotrexate 10/2014- March 2022, self stopped by patient Zeus 06/2022-present effective Code(s): L40.50 - Arthropathic psoriasis, unspecified Category: Medical Plan Plan Patient was informed and verbally consented to the use of an ambient scribe for clinic note documentation during this visit. 1. Hypertension Hypertension is well-controlled with amlodipine and ramipril, maintaining stable blood pressure levels. 2. Depression Depression is managed with bupropion, with no recent exacerbations reported. 3. Psoriatic Arthritis Psoriatic arthritis is managed with SKDC and Prolia, with occasional tramadol use for pain. 4. Osteoporosis Osteoporosis is managed with Prolia injections every six months. 5. Cervical Spondylosis Cervical spondylosis was identified on neck x-ray, and headaches have improved with physical therapy. 6. Brain Atrophy Brain atrophy was noted on MRI, and the patient was referred to a neurologist for further evaluation. 7. Right Frontotemporal Dysfunction EEG revealed mild right frontotemporal dysfunction without epileptic changes, and further neurological evaluation is ongoing. 8. Sebaceous Cyst The sebaceous cyst on the head is stable and has been previously evaluated as benign.
[2024-11-20 10:05] VITALS: BP 122/80; PULSE 70; O2SAT 97; BMI 35.9
--- OUTSIDE RECORDS SUMMARY | 2024-11-20 10:56 | XMS_ITS | Clinical Summary ---
Author Organization [address] [place] [address] Address [address] [place] [address] Phone Care Team Providers Care Car Rental Sales Assistant Name Role Phone Lily Mcleod Primary Care Provider [phone] Surgical History Surgery Date Site/Laterality Comments TOTAL KNEE ARTHROPLASTY 02/2016 PROCEDURE: [place] ARTHRP KNE CONDYLE&PLATU MEDIAL&LAT COMPARTMENTS OTHER SURGICAL HISTORY 2013 Left PROCEDURE: ---- OTHER ----; COMMENT: LEFT SHOULDER/ROTATOR CUFF OTHER SURGICAL HISTORY 2013 Right PROCEDURE: ---- OTHER ----; COMMENT: RIGHT SHOULDER/ROTATOR CUFF OTHER SURGICAL HISTORY 02/2004 PROCEDURE: ---- OTHER ----; COMMENT: SMALL BOWEL OBSTRUCTION SURGERY HYSTERECTOMY [id number] PROCEDURE: HISTORICAL HYSTERECTOMY HYSTERECTOMY PROCEDURE:HYSTERECTOMY JOINT REPLACEMENT [...] Last Done Comments Breast Cancer Screening 1955 Colorectal Cancer Screening: Colonoscopy 1955 DTaP,Tdap,and Td Vaccines (1 - Tdap) 1972 Pneumococcal Vaccine: 50+ Ye ars (1 of 1 - PCV) 12/22/2003 Zoster Vaccines (1 of 2) 12/22/2003 Falls Risk Assessment 01/24/2022 Hepatitis C Screening 01/24/2022 Medicare Annual Wellness Visit 01/24/2022 Osteoporosis Screening (Bone Density Screening) 01/24/2022 Social Influencers of Health Screening 01/24/2022 Depression Screening 02/22/2024 COVID-19 Vaccine (1 - 2023-2 5 season) 2024 Influenza Vaccine (#1) 2024 RSV Immunization Adult [...] Documents on File Type Date Recorded Patient Cattyman Expl anation Health Care Decision (hx) 02/27/2018 AD FREITAS DIRECTIVE Health Care Decision (hx) 02/27/2018 AD FREITAS DIRECTIVE Health Care Decision (hx) 02/27/2018 AD FREITAS DIRECTIVE Care Teams Car Rental Sales Assistant Relationship Specialty Start Date End Date Lily Mcleod FNP [address] [place] [address] [place] [address] PCP - General Internal Medicine 11/14/17
--- OUTSIDE RECORDS SUMMARY | 2024-11-20 10:56 | XMS_ITS | Clinical Summary ---
Author Organization [facility] Address [address] [id number] Care Team Providers Care Mine Manager Name Role Phone Lily Mcleod Primary Care Provider [phone] Allergies No known active allergies Medications Medication [...] age to complete this topic Care Teams Mine Manager Relationship Specialty Start Date End Date Lily Mcleod [address] [place] [address] [place] [address] PCP - General Family Medicine 07/29/17
== END 2024-11-20 10:39 | disposition home or self-care (01) ==
LOC: HO.HMCH 09:57
PROVIDERS: PCP Internal Medicine; Visit Provider Internal Medicine
DX: I10 Essential (primary) hypertension (principal); F33.0 Major depressive disorder, recurrent, mild; L40.50 Arthropathic psoriasis, unspecified; F41.1 Generalized anxiety disorder; E78.00 Pure hypercholesterolemia, unspecified

== ENCOUNTER → 2024-11-20 09:56 | Outpatient (BNVA) | payer MEDICARE, MEDICAID, SELFPAY | PROVIDERS: PCP Internal Medicine; Visit Provider Internal Medicine | DX: F33.0 Major depressive disorder, recurrent, mild (principal); F41.1 Generalized anxiety disorder; E78.00 Pure hypercholesterolemia, unspecified; I10 Essential (primary) hypertension; L40.50 Arthropathic psoriasis, unspecified; Z87.891 Personal history of nicotine dependence | CPT/HCPCS: 99212 ==

== ENCOUNTER → 2024-12-11 20:30 | Outpatient (REF) | payer MEDICARE, MEDICAID, SELFPAY ==
--- OUTSIDE RECORDS SUMMARY | 2024-12-11 21:51 | XMS_ITS | Clinical Summary ---
Author Organization [address] [place] [address] Address [address] [place] [address] Phone Care Team Providers Care Judicial Administrative Assistant Name Role Phone Lily Mcleod Primary Care Provider Surgical History Surgery Date Site/Laterality Comments TOTAL KNEE ARTHROPLASTY 02/2016 PROCEDURE: [place] ARTHRP KNE CONDYLE&PLATU MEDIAL&LAT COMPARTMENTS OTHER SURGICAL HISTORY 2013 Left PROCEDURE: ---- OTHER ----; COMMENT: LEFT SHOULDER/ROTATOR CUFF OTHER SURGICAL HISTORY 2013 Right PROCEDURE: ---- OTHER ----; COMMENT: RIGHT SHOULDER/ROTATOR CUFF OTHER SURGICAL HISTORY 02/2004 PROCEDURE: ---- OTHER ----; COMMENT: SMALL BOWEL OBSTRUCTION SURGERY HYSTERECTOMY [id number] PROCEDURE: HISTORICAL HYSTERECTOMY HYSTERECTOMY PROCEDURE:HYSTERECTOMY JOINT REPLACEMENT [...] Documents on File Type Date Recorded Patient Jack Winder Expl anation Health Care Decision (hx) 02/27/2018 AD FREITAS DIRECTIVE Health Care Decision (hx) 02/27/2018 AD FREITAS DIRECTIVE Health Care Decision (hx) 02/27/2018 AD FREITAS DIRECTIVE Care Teams Judicial Administrative Assistant Relationship Specialty Start Date End Date Lily Mcleod FNP [address] [place] [address] [place] [address] PCP - General Internal Medicine 11/14/17
--- OUTSIDE RECORDS SUMMARY | 2024-12-11 21:51 | XMS_ITS | Clinical Summary ---
Author Organization [facility] Address [address] [id number] Care Team Providers Care Product Safety Expert Name Role Phone Lily Mcleod Primary Care Provider [phone] Allergies No known active allergies Medications Medication [...] age to complete this topic Care Teams Product Safety Expert Relationship Specialty Start Date End Date Lily Mcleod [address] [place] [address] [place] [address] PCP - General Family Medicine 07/29/17
== END ==
LOC: HO.SL 20:30
PROVIDERS: PCP Internal Medicine; Visit Provider Nurse Practitioner Family
DX: G47.9 Sleep disorder, unspecified (principal); G47.36 Sleep related hypoventilation in conditions classified elsewhere; R41.3 Other amnesia; R53.83 Other fatigue
CPT/HCPCS: 95810

== ENCOUNTER → 2024-12-11 22:23 | Outpatient (BNV) | payer MEDICARE, MEDICAID, SELFPAY | PROVIDERS: PCP Internal Medicine; Visit Provider Psychiatry & Neurology Neurology | DX: R09.02 Hypoxemia (principal); G47.36 Sleep related hypoventilation in conditions classified elsewhere | CPT/HCPCS: 95810 ==

== ENCOUNTER 2024-12-14 11:43 | Outpatient (AMB) | payer MEDICARE, MEDICAID, SELFPAY ==
--- NOTE | 2024-12-14 11:47 | A.OFFVIS_ITS ---
Vital Signs 12/14/24 11:57 Height 4 ft 7 in Weight 157 lb BMI 36.5 BP 100/78 Blood Pressure Location Rt brachial Position Sitting Pulse 69 Pulse Source Pulse Oximeter Pulse Oximetry (%) 98 Oxygen Delivery Method Room Air Intake Visit Reasons: 6 wks follow up Intake Note: Headache Equal Employment Opportunity Officer Required: No Accompanied by: Self / Same As Patient Allergies etanercept (From Enbrel) Allergy (Severe, Verified 12/14/24 11:58) rash Seasonal Allergies Allergy (Severe, Verified 12/14/24 11:58) Rash adalimumab (From Humira) Allergy (Intermediate, Verified 12/14/24 11:58) Rash Medication List - Last Reconciled 12/14/24 by SVITLANA Dillard amlodipine 10 mg PO DAILY bupropion HCl SR 150 mg PO DAILY 90 days calcium carbonate-vitamin D3 600 mg-25 mcg (1,000 unit) patient takes 2 caps daily coenzyme Q10 400 mg PO DAILY 90 days denosumab (Prolia) 60 mg subcut [id number] diclofenac sodium 1% (Arthritis Pain (diclofenac)) 4 grams topical QID PRN epinephrine (EpiPen 2-Celso) 0.3 mg (0.3 mL) IM ONCE PRN fluticasone propionate 0.05% 1 appl topical DAILY PRN fluticasone propionate 110 mcg/actuation 2 puffs inhalation BID PRN fluticasone propionate 50 mcg/actuation 1 spray intranasal BID PRN gabapentin 300 mg PO DAILY hydroxyzine HCl 10 mg PO QID PRN lorazepam 0.5 mg PO BEDTIME PRN 30 days ramipril 10 mg PO DAILY 90 days riboflavin (vitamin B2) 400 mg PO DAILY 90 days risankizumab-rzaa (Skyrizi) 150 mg subcut Q12W tramadol 50 mg PO BEDTIME PRN HPI Comments Details: 12/14/2024, HPI: 68-year-old female presents for follow-up of interval testing for workup of headache, abnormal brain MRI, and STM difficulties. Her daughter joins via video during the 1st part of the visit. Interval workup: * 12/12/2024, brain MRI with and without contrast, showed stable age-related volume loss, white matter changes, without postcontrast enhancement. * 11/13/2024, baseline EEG: Mildly abnormal EEG revealing right frontotemporal dysfunction but no epileptic discharges. * A f/u ambulatory EEG has been ordered. Schedule pending * 12/14/2024, In-lab PSG: Results pending. However, patient notes that she required supplemental O2, but not PAP therapy, during the study. * Occipital US is scheduled for Nov. Patient reports her headaches were better while she was doing PT, however she has held PT for a few weeks, as she was not certain if she could do PT with the age-related brain MRI findings. She noticed a couple of headaches in the past few days, which she attributed to stress and another after she underwent the f/u brain MRI w/wo. For the left occipital stabbing headaches, she took a 2 Tylenol and did her PT stretches/exercises which helped. She is open to resuming PT. She reports she continues to have some short-term memory lapses. Denies difficulty with managing finances or driving. She denies a family h/o dementia. Her mother passed at age 78 yr-old, and had cognitive difficulties around age 74 yr-old when she was very ill and had significant pain. 10/30/2024, initial HPI: History of Present Illness The patient is a 68-year-old female referred for evaluation of headache per [facility] pain management, who is accompanied by her daughter. The patient and daughter report they felt the referral was made to review a recent the results of a recent brain MRI without contrast, ordered to assess her new headache, which sh owed mild white matter changes and cerebral volume loss. PMH is notable for: HTN, mild HLD, psoriatic arthritis on Skyrizi- f/b [facility] rheumatolog, OA, osteoporosis, chronic cervical DJD, hand pain, chronic back pain, compression fracture, depression/anxiety, h/o bilateral closed-angle glaucoma s/p laser surgical repair, h/o bilateral cataract replacement, diverticulitis. Headache: This patient reports 2 distinct headaches, which do not co-occur. 1st headache type started at least a year ago, but no more than a few years ago. This is a left-sided pressure, felt as a weight over her eye. She denies any precipitating or provoking triggers. The 2nd headache started approximately 5 months ago, this is a stabbing headache in the left occipital region- make the head is being stabbed by something, rather than a shooting stabbing pain. Patient again denies any precipitating or triggering factors. However, she notes she has had a left occipital mass for as long as she can remember. Patient currently uses Tylenol and rest for these headaches, though the Tylenol is more effective for the left occipital region headache than the left ret robulbar headache. Patient is currently undergoing PT for cervicalgia in the setting of a known history of cervical spondylosis in the setting of psoriatic arthritis, and osteoarthritis. Currently taking gabapentin 300 mg daily, and tramadol 50 mg sparingly- states has not had as much joint pain since starting Skyrizi The patient has never tried an occipital or similar nerve block of the head. Cerebral Volume Loss: The patient expressed concern following her brain MRI report, which was reported to her by the ordering provider as more prominent cerebral volume loss compared to her peers. The patient does endorse some forgetfulness, more so short-term forgetfulness. However, her long-term memory is intact. Patient lives alone with close family support. She is generally pretty active, though she does not engage in regularly structured physical activity. She denies usual dizziness; however, in the last few months, she may have orthostatic lightheadedness if she has been out in the heat or has bent over for a while, such as when gardening. She endorses that she probably does not drink as much fluid as she should. She does vape nicotine. Review of Systems - Neurologic: Reports lightheadedness associated with sun exposure and bending over, and a history of a self-limited concussion from childhood. Endorses STM forgetfulness; however, long-term memory is intact. Denies any visual aura, photophobia, nausea, or vomiting. - Musculoskeletal: Reports joint pain before Skyrizi therapy, now significantly improved. - Cardiovascular: Denies palpitations. - Respiratory: Denies any shortness of breath. - Sleep: She reports her sleep has been ?bad? for as long as she can remember. She states she has fragmented sleep, and then cannot go back to sleep. She endorses snoring. Has a family h/o sleep apnea. - Gastrointestinal: Denies constipation. - Dermatologic: Reports skin and nail changes associated with psoriatic arthritis. - Psychiatric: Reports mood is usually fine Family History - Reports her mother developed dementia/Alzheimer's symptoms in her early 70s and in her late 70s. Headache questionnaire: Age/time of onset: * Left occipital stabbing headaches: 5 months ago, started waking up with a stabbing left-sided occipital headache. * Left eye pressure: at least for a few years- but not exactly sure how long. Preceding causes: unsure- though dtr notes that pt has had some falls- some r/t mechanical falls (stepped on board in the wrong spot and fell), others were d/t clumsiness (unsure when). Previous work-up: * Last eye exam: almost a year ago, next visit scheduled in a few weeks- [facility] * h/o laser tx for bilateral closed-angle glaucoma attack * Brain MRI- mild WM changes and volume loss Types of headache disorders: 2- occurring at separate times 1st typical current headache characteristics: Prodrome symptoms: left-sided head discomfort Aura: denies Pain intensity: varied- moderate-severe Location, quality, characteristics: Initially stabbing, now more like a sharp ache Associated symptoms: denies Postdrome: denies Aggravating factors: denies Triggers: certain head positions Time of day: No specific time of day Duration and Frequency: the initial severe stabbing lasted 10 minutes, the more current aching headaches last approx 1 hour, occurring 1-2 times in a day, typically 3 days per week. Headache impact on patient's quality of life: just needs to rest. Headache treatment for this headache * Current acute medication use/interventions: Tylenol 1000mg 1-2 x's w/ usual positive effect. * Current preventative medication use: none * Current non-pharmacological interventions: rest 2nd typical current headache characteristics: Prodrome symptoms: watery left eye Aura: denies Pain intensity: varies- moderate Location, quality, characteristics: pressure behind the left eye- like a weight over the eye Associated symptoms: ipsilateral left watery eye. Denies associated red eye, nasal congestion, ptosis, or weakness. Postdrome: denies Aggravating factors: denies Triggers: denies Time of day: later in the afternoon Duration and Frequency: varies, can be brief, but other times can last longer- not a minute, but not hours Headache impact on patient's quality of life: just needs to rest. Headache treatment for this headache: * Current acute medication use/interventions: Tylenol 1000mg 1-2 x's- not as effective for this headache * Current preventative medication use: none * Current non-pharmacological interventions: rest and apply a cool compress Headache Lifestyle Factors * Caffeine intake limited to 1-2 cups of decaffeinated coffee per day. * Rest and acetaminophen for headache relief. * Reports sleep disturbances impacting overall wellness. Social History * Lives alone, with family nearby for support. * Is active in gardening and maintaining her living environment. * Participates in household tasks and visits with family regularly for engagement. Nutrition * The patient's dietary habits indicate she should increase water intake. She consumes decaffeinated coffee and is involved in preparing meals. Exercise * Engages regularly in gardening, which provides consistent physical activity. * Additional exercises include [id number] and leg lifts to address hip degeneration, though she does not participate in structured exercise routines. * Currently doing PT for her neck- per pain management. Sleep * Reports chronic fragmented sleep, typically falling asleep around 9:30 PM and waking around midnight, then returning to sleep after watching TV. Substance Use History * Currently vapes nicotine-patient states she has reduced her use to 1 cartridge every 1-2 days, which is less than other people use. * Denies use of alcohol, marijuana, or CBD products. 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 Her 1st profession was has a [employer] times 10 years. [facility] Medical History GABINO (generalized anxiety disorder) Mild recurrent major depression Upper respiratory infection Right hand pain Lumbar pain Sacral pain Compression fracture Otitis Osteoporosis Psoriatic arthritis Obesity HTN (hypertension) Psoriasis Osteoarthritis Surgical History S/P rotator cuff repair H/O toe surgery History of colonoscopy History of total left knee replacement (TKR) History of tonsillectomy History of hysterectomy History of total right knee replacement (TKR) Family History Father No problems noted. Mother Mental health disorder Family/Other Substance use disorder Social History Housing: House Alcohol intake: current Alcohol intake frequency: holidays/special occasions only Alcohol type: hard liquor and other Patient Tobacco Use Status: Former Tobacco user Tobacco use type: Cigarette Cigarettes Per Day: 30 Years Smoked: 40 e-Cigarette/Vaping Use: Never Used Second Hand Smoke Exposure: No service: No Current occupational status: retired Current occupation: left hand Cognitive needs: No Hearing needs: No Vision needs: Yes Physical Exam Vital Signs: Last Vital Signs Pulse 69 12/14/24 11:57 BP 100/78 12/14/24 11:57 Pulse Ox 98 12/14/24 11:57 Oxygen Delivery Method Room Air 12/14/24 11:57 BMI result Body Mass Index 36.5 Const Orientation/consciousness: patient oriented x3 Resp Effort & Inspection: normal respiratory effort and able to speak in complete sentences Neuro Other: Very occasional STM lapses General: patient oriented x3 Cranial nerves: Yes CN's II-XII intact bilaterally Cognition (Neuro): normal cognition Gait exam (Neuro): Normal gait present Motor exam (neuro): 5/5 motor strength present throughout Psych Appearance: grossly normal Mental Status: mental status grossly normal Speech and movement: Normal speech and movement present Affect: normal affect Attitude: cooperative Thought process: Normal thought process present Orientation What is the (year) (season) (date) (day) (month)?: year, season, date, day and month Where are we (state) (county) (town or city) (hospital) (floor)?: state, county, town or city, hospital/clinic and floor Registration Name of 3 unrelated objects clearly and slowly, then ask patient to repeat all 3 of them. (1st repeat determines score. Make sure they can repeat all three): object 1, object 2 and object 3 Attention & Calculation (CHOOSE ONE) Spell WORLD backwards (DLROW): 5 letters Recall Ask patient to repeat the 3 items from question #3.: object 1, object 2 and object 3 Language Show patient a wristwatch & ask what it is. Repeat for pencil.: watch and pencil Ask the patient to repeat the phrase 'No ifs, ands, or buts' after you.: correct Ask the patient to 'take a piece of paper with their right hand' 'fold paper in half' 'place paper on floor': take paper in right hand, fold paper in half and p lace paper on floor Print the sentence 'CLOSE YOUR EYES' on a piece. If patient actually closes eyes then score.: followed written direction Give patient a blank piece of paper & ask to write a sentence. Score if it contains a noun & verb.: sentence contains subject and verb Ask patient to copy figure of intersecting pentagons exactly. Score if all 10 angles & 2 intersects are included.: all 10 angles present & 2 are intersected Score Score: 30 Results Reviewed Results Reviewed: Exam Date:?10/03/2024 at [facility] EXAM: MR BRAIN WITHOUT CONTRAST INDICATION: Nonspecific headaches, occipital neuralgia TECHNIQUE: Multiplanar multisequence imaging of the brain was obtained, without intravenous contrast administration. COMPARISON: None FINDINGS: There are no acute territorial infarcts seen within the brain on diffusion images. No midline shift, mass effect or hemorrhage is seen. Ventricular system is symmetrical, without hydrocephalus. Few scattered nonspecific small T2 hyperintense foci are present along the periventricular white matter suggestive of microvascular changes. Generalized mild sulcal dilatation is seen consistent with volume loss. Craniocervical junction is preserved and the fourth ventricle is in the midline. Visualized orbits and region of the sella are preserved. Paranasal and mastoid sinuses are clear. The calvarium is intact. IMPRESSION: No acute intracranial pathology seen. Mild age-related involutional changes and generalized volume loss. Electronically signed on 10/03/2024 1:47:00 PM by Galina Lynn M.D. 2013, c-spine MRI w/o: IMPRESSION: 1. Mild central disc protrusion C4-5 causing no impression upon the dural sac or nerve roots. 2. Mild disc herniation C5-6 causing mild flattening of the dural sac without cord compression or nerve root compression. Assessment & Plan Assessment & Plan (1) Left-sided headache: Code(s): R51.9 - Headache, unspecified Category: Medical (2) Short-term memory loss: Code(s): R41.3 - Other amnesia Category: Medical (3) Mass of scalp: Comment: Occipital region Code(s): R22.0 - Localized swelling, mass and lump, head Category: Medical (4) Fatigue: Comment: Pearcy sleepiness scale 11 Code(s): R53.83 - Other fatigue Category: Medical Qualifiers: Fatigue type: other Qualified Code(s): R53.83 - Other fatigue (5) Cervicalgia: Code(s): M54.2 - Cervicalgia Category: Medical Plan Your advised to undergo: * Ultrasound soft tissue of left occipital region in December as scheduled When results are available, will review: * In-lab sleep study For STM memory lapses and brain MRI results showing cerebral volume loss: * MMSE 30/30, which was reassuring, we will repeat in 6-12 months. * Reviewed follow-up brain MRI with and without contrast, showed stable known white matter changes, cerebral volume loss, without contrast enhancement. * Reviewed EEG- right frontal temporal dysfunction * Reviewed interval labs: TSH, B12, folate, homocystine, methylmalonic acid- WNL * Future considerations: Amyloid PET scan, APOE genetic testing, and if testing were positive consideration of anti amyloid targeted therapies. For overall headache management: * Optimize good self-care, including but not limited to maintaining a healthy diet, adequate fluid intake, adequate sleep, and engaging in regular physical activity. * Track headaches and both positive and negative effects of your headache treatment trials, especially after any treatment regimen changes. * Migraine [employer] is one of many headache tracking apps. * A simple paper calendar is also a good option. * Daily fluid intake should include at least 64-80 oz of fluid per day, including 16-24 fluid oz of sugar free/reduce sugar Gatorade/Powerade/liquid IV- to reduce orthostatic lightheadedness * We will reinitiate order for PT eval and treat * Follow-up pain management as scheduled * Continue ever to reduce vaping nicotine For acute (as needed) headache treatment: It is important to take acute medications at the first sign of headache. However, please be aware that frequently using most acute medications may increase the frequency of your headache attacks, as well as make your other treatments less effective.. * May continue Tylenol 650-1000 mg every 4-6 hours as needed Previous acute headache medication trials: None other Acute headache medication contraindications: None at this time For headache prevention medication: Preventative medications should be taken routinely as prescribed for best effect, it may take several weeks for full effect to take effect. * Riboflavin 400mg daily in the morning * Co Q10 400 mg daily in the morning * Take with a higher fat foods * Magnesium 400mg daily at bedtime Previous headache prevention medication trials: None Headaches prevention medication contraindications: None at this time We will follow-up upon review of above and with a follow-up clinic visit in 6 weeks to complete MMSE and again in 6 months or sooner as needed. Orders: Orders PT Evaluation and Treatment 09/28/24 M54.2 - Cervicalgia, M47.812 - Spondylosis without myelopathy or radiculopathy, cervical region, R51.9 - Headache, unspecified, G44.86 - Cervicogenic headache, M54.81 - Occipital neuralgia, M 50.30 - Other cervical disc degeneration, unspecified cervical region PT Evaluation and Treatment 12/14/24 M54.2 - Cervicalgia, G44.86 - Cervicogenic headache, R51.9 - Headache, unspecified Coding Level of Care Code Est Pt Level 4 (17367) Diagnoses Left-sided headache R51.9 Short-term memory loss R41.3 Mass of scalp R22.0 Other fatigue R53.83 Fatigue type: other Cervicalgia M54.2
[2024-12-14 11:57] VITALS: BP 100/78; PULSE 69; O2SAT 98; BMI 36.5
--- OUTSIDE RECORDS SUMMARY | 2024-12-14 14:06 | XMS_ITS | Clinical Summary ---
Author Organization [address] [place] [address] Address [address] [place] [address] Phone Care Team Providers Care Hospitality Coordinator Name Role Phone Lily Mcleod Primary Care Provider [phone] Surgical History Surgery Date Site/Laterality Comments TOTAL KNEE ARTHROPLASTY 02/2016 PROCEDURE: DC ARTHRP KNE CONDYLE&PLATU MEDIAL&LAT COMPARTMENTS OTHER SURGICAL HISTORY 2013 Left PROCEDURE: ---- OTHER ----; COMMENT: LEFT SHOULDER/ROTATOR CUFF OTHER SURGICAL HISTORY 2013 Right PROCEDURE: ---- OTHER ----; COMMENT: RIGHT SHOULDER/ROTATOR CUFF OTHER SURGICAL HISTORY 02/2004 PROCEDURE: ---- OTHER ----; COMMENT: SMALL BOWEL OBSTRUCTION SURGERY HYSTERECTOMY [id number] PROCEDURE: HISTORICAL HYSTERECTOMY HYSTERECTOMY PROCEDURE:HYSTERECTOMY JOINT REPLACEMENT [...] Documents on File Type Date Recorded Patient Retail Merchandising Specialist Expl anation Health Care Decision (hx) 02/27/2018 AD FREITAS DIRECTIVE Health Care Decision (hx) 02/27/2018 AD FREITAS DIRECTIVE Health Care Decision (hx) 02/27/2018 AD FREITAS DIRECTIVE Care Teams Hospitality Coordinator Relationship Specialty Start Date End Date Lily Mcleod FNP [address] [place] [address] [place] [id number] PCP - General Internal Medicine 11/14/17
--- OUTSIDE RECORDS SUMMARY | 2024-12-14 14:06 | XMS_ITS | Clinical Summary ---
Author Organization [facility] Address [address] [id number] Care Team Providers Care Supervisor Transferring And Boxing Name Role Phone Lily Mcleod Primary Care Provider [phone] Allergies No known active allergies Medications Medication [...] age to complete this topic Care Teams Supervisor Transferring And Boxing Relationship Specialty Start Date End Date Lily Mcleod [address] [place] [address] [place] [address] PCP - General Family Medicine 07/29/17
== END 2024-12-14 13:24 | disposition home or self-care (01) ==
LOC: HO.HSMS 11:45
PROVIDERS: PCP Internal Medicine; Visit Provider Nurse Practitioner Family
DX: R51.9 Headache, unspecified (principal); R41.3 Other amnesia; R22.0 Localized swelling, mass and lump, head; R53.83 Other fatigue; M54.2 Cervicalgia
CPT/HCPCS: 99214

== ENCOUNTER → 2024-12-14 11:43 | Outpatient (BNVA) | payer MEDICARE, MEDICAID, SELFPAY | PROVIDERS: PCP Internal Medicine; Visit Provider Nurse Practitioner Family | DX: M54.2 Cervicalgia (principal); R41.3 Other amnesia; R51.9 Headache, unspecified; R22.0 Localized swelling, mass and lump, head; R53.83 Other fatigue | CPT/HCPCS: 99212 ==

== ENCOUNTER 2025-01-07 10:21 | Outpatient (AMB) | payer MEDICARE, MEDICAID, SELFPAY ==
[2025-01-07 10:28] VITALS: BP 150/90; PULSE 70; RESP 18; O2SAT 98; BMI 36.3
--- NOTE | 2025-01-07 10:28 | MHC.PC.OV ---
Vital Signs 01/07/25 10:28 Height 4 ft 7 in Weight 156 lb 4 oz BMI 36.3 BP 150/90 H Blood Pressure Location Lt brachial Position Sitting Respiration 18 Pulse 70 Pulse Source Pulse Oximeter Temp Source Temporal Artery Scan Pulse Oximetry (%) 98 Oxygen Delivery Method Room Air Intake Visit Reasons: Congested Medication Aide Required: No Accompanied by: Self / Same As Patient Allergies etanercept (From Enbrel) Allergy (Severe, Verified 01/07/25 10:29) rash Seasonal Allergies Allergy (Severe, Verified 01/07/25 10:29) Rash adalimumab (From Humira) Allergy (Intermediate, Verified 01/07/25 10:29) Rash Medication List - Last Reconciled 01/07/25 by Quinn Hurtado MD amlodipine 10 mg PO DAILY bupropion HCl SR 150 mg PO DAILY 90 days calcium carbonate-vitamin D3 600 mg-25 mcg (1,000 unit) patient takes 2 caps daily coenzyme Q10 400 mg PO DAILY 90 days denosumab (Prolia) 60 mg subcut [id number] diclofenac sodium 1% (Arthritis Pain (diclofenac)) 4 grams topical QID PRN epinephrine (EpiPen 2-Celso) 0.3 mg (0.3 mL) IM ONCE PRN fluticasone propionate 0.05% 1 appl topical DAILY PRN fluticasone propionate 110 mcg/actuation 2 puffs inhalation BID PRN fluticasone propionate 50 mcg/actuation 1 spray intranasal BID PRN gabapentin 300 mg PO DAILY lorazepam 0.5 mg PO BEDTIME PRN 30 days ramipril 10 mg PO DAILY 90 days riboflavin (vitamin B2) 400 mg PO DAILY 90 days risankizumab-rzaa (Skyrizi) 150 mg subcut Q12W tramadol 50 mg PO BEDTIME PRN Tobacco use date assessed: 01/07/25 Fall risk assessment: No Falls in past year Last assessed Fall Risk: 01/07/25 Dental Screening Dental Screen Date: 01/07/25 Did you have a dental visit in the last 12 months?: Yes Did you have a dental problem in the last 6 months where you did not have access to dental care?: No Was dental information given to patient?: Patient has dentist HPI HPI Comments History of Present Illness Details The patient is a 69-year-old female presenting with symptoms of an upper respiratory infection that began three days ago. She reports feeling very drained, leading her to stay in bed for two days, and is experiencing chest congestion, head congestion, head pressure, cough, and wheezing. She denies any fever or chills. Self-treatment has included Tylenol, Coricidin Cold and Flu, and Robitussin DM. [facility] Medical History GABINO (generalized anxiety disorder) Mild recurrent major depression Upper respiratory infection Right hand pain Lumbar pain Sacral pain Compression fracture Otitis Osteoporosis Psoriatic arthritis Obesity HTN (hypertension) Psoriasis Osteoarthritis Surgical History S/P rotator cuff repair H/O toe surgery History of colonoscopy History of total left knee replacement (TKR) History of tonsillectomy History of hysterectomy History of total right knee replacement (TKR) Family History Father No problems noted. Mother Mental health disorder Family/Other Substance use disorder Social History Housing: House Alcohol intake: current Alcohol intake frequency: holidays/special occasions only Alcohol type: hard liquor and other Patient Tobacco Use Status: Former Tobacco user Tobacco use type: Cigarette Cigarettes Per Day: 30 Years Smoked: 40 e-Cigarette/Vaping Use: Never Used Second Hand Smoke Exposure: No service: No Current occupational status: retired Current occupation: left hand Cognitive needs: No Hearing needs: No Vision needs: Yes Questionnaire Thrive Questionnaire Date Thrive assessed: 07/08/24 I am a: Patient What is your living situation today?: I have a steady place to live Within the past 12 months, did the food you bought not last and you didn't have the money to get more?: Never true Within the past 12 months, did you worry whether your food would run out before you got money to buy more?: Never true Do you have trouble paying for medicines?: No Do you have trouble getting transportation to medical appointments?: No Do you have trouble paying your heating and electricity bill?: No Do you have trouble taking care of your child, family member or friend?: No Do you have trouble with day-to-day activities such as bathing, preparing meals, shopping, managing finances, etc.?: No Are you currently unemployed and looking for a job?: No Are you interested in more education?: No Please select the resources that you would like help with: None Currently or been in a relationship where the following occur: No concerns reported THRIVE Score: 0 GABINO-7 AMB Questionnaire GABINO-7 Date GABINO - 7 assessed: 07/10/24 Source: Developed by Drs. Ruben Abel, Regla Saleh, Rome Jurado and colleagues, with an educational jermaine from [employer]. Review of Systems Const Details: As per HPI. Physical exam (Primary Care) Vital Signs: Last Vital Signs Pulse 70 01/07/25 10:28 Resp 18 01/07/25 10:28 BP 150/90 H 01/07/25 10:28 Pulse Ox 98 01/07/25 10:28 Oxygen Delivery Method Room Air 01/07/25 10:28 BMI result Body Mass Index 36.3 Tobacco/Smoking Status: Tobacco use Status Tobacco use date assessed 01/07/25 01/07/25 10:41 Patient Tobacco Use Status Former Tobacco user 01/07/25 10:41 Tobacco use type Cigarette 01/07/25 10:41 e-Cigarette/Vaping Use Never Used 01/07/25 10:41 Thrive Assessment: Date of Thrive Assessment Date Thrive assessed 07/08/24 01/07/25 10:41 Currently or been in a relationship where the following occur: No concerns reported Const Other: Pertinent findings are in BOLD GENERAL APPEARANCE NAD, activity normal for age, well developed/ well nourished, no cyanosis, pallor, or diaphoresis. EYES lids/conjunctiva normal. EARS/NOSE/THROAT Mucous membranes moist, nares normal, lips/teeth normal uvula midline without oral pharyngeal erythema, exudate or swelling TMs normal bilaterally. No lymphangitis/lymphedema. HEAD/NECK normocephalic atraumatic, no facial trauma, neck is supple. RESPIRATORY respiratory effort normal, speaks in full sentences, no tripod position, no accessory muscle use. Lungs clear to auscultation without rhonchi, wheezes, rales. Mild wheezing on bilateral lung auscultation. CARDIAC Regular rate and rhythm, no edema. ABDOMINAL Soft, ND/NT. No evidence of fluid wave. No pulsatile masses on exam, rebound tenderness, Wilburn sign or pain over Mcburney's point. MUSCLES/EXTREMITIES No abnormal range of motion, no swelling. SKIN Warm, pink and dry. No rashes, dermatoses, petechiae or lesions. NEUROLOGICAL Speech is clear and appropriate. Normal level of consciousness. Gait and coordination are normal. 5/5 strength in all extremities. PSYCH Normal mood and affect. Judgement/competence is appropriate Coding Level of Care Code Est Pt Level 3 (17609) Diagnoses Congestion of upper airway J98.8 Time Spent (min) 20 Assessment & Plan Assessment & Plan (1) Congestion of upper airway: Code(s): J98.8 - Other specified respiratory disorders Category: Medical Plan: - The patient's symptoms of congestion, cough, and malaise are consistent with an acute respiratory infection, viral vs bacterial infection. - Treatment will be initiated with azithromycin 500 mg for three days and prednisone 10 mg for five days to address potential bacterial infection and inflammation. - The patient was advised to follow up or seek urgent care if symptoms worsen or if she develops a high fever or chills. Plan I explained to the patient that her symptoms are consistent with a common cold, which could be viral or potentially bacterial. To cover for a possible bacterial cause, I am prescribing azithromycin 500 mg for three days and a low dose of prednisone 10 mg for five days to help with the inflammation and wheezing. We discussed her recent 60 mg Kenalog steroid shot and determined that this short course of a low-dose oral steroid is appropriate. I instructed her to return or go to an urgent care or emergency department if she develops a severe fever, chills, or feels significantly more ill. Medications: New azithromycin 500 mg PO DAILY 3 tabs 0RF 3 days prednisone 10 mg PO DAILY 5 tabs 0RF
--- OUTSIDE RECORDS SUMMARY | 2025-01-07 21:22 | XMS_ITS | Clinical Summary ---
Author Organization [employer] [facility] Address [address] [id number] Care Team Providers Care Design Chief Name Role Phone Lily Mcleod Primary Care Provider [phone] Allergies No known active allergies Medications Medication [...] age to complete this topic Care Teams Design Chief Relationship Specialty Start Date End Date Lily Mcleod [address] [place] [address] [place] [address] PCP - General Family Medicine 07/29/17
--- OUTSIDE RECORDS SUMMARY | 2025-01-07 21:22 | XMS_ITS | Clinical Summary ---
Author Organization [address] [place] [address] Address [address] [place] [address] Phone Care Team Providers Care Customer Service Professional Name Role Phone Lily Mcleod Primary Care Provider Surgical History Surgery Date Site/Laterality Comments TOTAL KNEE ARTHROPLASTY 02/2016 PROCEDURE: [place] ARTHRP KNE CONDYLE&PLATU MEDIAL&LAT COMPARTMENTS OTHER SURGICAL HISTORY 2013 Left PROCEDURE: ---- OTHER ----; COMMENT: LEFT SHOULDER/ROTATOR CUFF OTHER SURGICAL HISTORY 2013 Right PROCEDURE: ---- OTHER ----; COMMENT: RIGHT SHOULDER/ROTATOR CUFF OTHER SURGICAL HISTORY 02/2004 PROCEDURE: ---- OTHER ----; COMMENT: SMALL BOWEL OBSTRUCTION SURGERY HYSTERECTOMY [id number] PROCEDURE: HISTORICAL HYSTERECTOMY HYSTERECTOMY PROCEDURE:HYSTERECTOMY JOINT REPLACEMENT [...] Depression Screening 02/22/2024 COVID-19 Vaccine (1 - 2024-2 6 season) 2024 Influenza Vaccine (#1) 2024 RSV [...] Documents on File Type Date Recorded Patient Steam Room Attendant Expl anation Health Care Decision (hx) 02/27/2018 AD FREITAS DIRECTIVE Health Care Decision (hx) 02/27/2018 AD FREITAS DIRECTIVE Health Care Decision (hx) 02/27/2018 AD FREITAS DIRECTIVE Care Teams Customer Service Professional Relationship Specialty Start Date End Date Lily Mcleod FNP [address] [place] [address] [place] [address] PCP - General Internal Medicine 11/14/17
== END 2025-01-07 11:22 | disposition home or self-care (01) ==
LOC: HO.HMCH 10:21
PROVIDERS: PCP Internal Medicine; Visit Provider Internal Medicine
DX: J98.8 Other specified respiratory disorders (principal)

== ENCOUNTER → 2025-01-07 10:21 | Outpatient (BNVA) | payer MEDICARE, MEDICAID, SELFPAY | PROVIDERS: PCP Internal Medicine; Visit Provider Internal Medicine | DX: J98.8 Other specified respiratory disorders (principal) | CPT/HCPCS: 99212 ==

== ENCOUNTER 2025-01-15 13:28 | Outpatient (REF) | payer MEDICARE, MEDICAID, SELFPAY ==
--- NOTE | ~2025-01-15 | US_ITS ---
EXAMINATION: US SOFT TISSUE HEAD AND/OR NECK CLINICAL INFORMATION: Left paramedian occipital palpable lump. COMPARISON: None available. Correlation made with CT neck 12/24/2016. TECHNIQUE: Grayscale and color Doppler ultrasound imaging of the occipital region to the left of midline in the region of palpable lump as indicated by the patient. FINDINGS: No abnormal soft tissue mass, fluid collection, cystic abnormality, or lymph node in the region of palpable concern. There appears to be a bony protuberance arising from the occipital bone in the area of palpable lump. Of note, on the CT neck of 12/24/2016, the occipital bone was included, and there is a left paramedian osteoma present, most likely representing the abnormality of concern that the patient is palpating. This finding is benign. US/US soft tiss head and/or neck IMPRESSION: 1. Small bony protuberance in the left paramedian occipital region correlating with the region of palpable concern. See above. 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 Electronically signed by: Quincy Zamarripa MD 01/15/2025 02:29 PM [facility]
--- OUTSIDE RECORDS SUMMARY | 2025-01-15 17:22 | XMS_ITS | Clinical Summary ---
Author Organization [address] [place] [address] Address [address] [place] [address] Phone Care Team Providers Care Shirt Cleaner Name Role Phone Lily Mcleod Primary Care Provider Surgical History Surgery Date Site/Laterality Comments TOTAL KNEE ARTHROPLASTY 02/2016 PROCEDURE: [place] ARTHRP KNE CONDYLE&PLATU MEDIAL&LAT COMPARTMENTS OTHER SURGICAL HISTORY 2013 Left PROCEDURE: ---- OTHER ----; COMMENT: LEFT SHOULDER/ROTATOR CUFF OTHER SURGICAL HISTORY 2013 Right PROCEDURE: ---- OTHER ----; COMMENT: RIGHT SHOULDER/ROTATOR CUFF OTHER SURGICAL HISTORY 02/2004 PROCEDURE: ---- OTHER ----; COMMENT: SMALL BOWEL OBSTRUCTION SURGERY HYSTERECTOMY [id number] PROCEDURE: HISTORICAL HYSTERECTOMY HYSTERECTOMY PROCEDURE:HYSTERECTOMY JOINT REPLACEMENT [...] Documents on File Type Date Recorded Patient Paraoptometric Expl anation Health Care Decision (hx) 02/27/2018 AD FREITAS DIRECTIVE Health Care Decision (hx) 02/27/2018 AD FREITAS DIRECTIVE Health Care Decision (hx) 02/27/2018 AD FREITAS DIRECTIVE Care Teams Shirt Cleaner Relationship Specialty Start Date End Date Lily Mcleod FNP [address] [place] [address] [place] [address] PCP - General Internal Medicine 11/14/17
--- OUTSIDE RECORDS SUMMARY | 2025-01-15 17:22 | XMS_ITS | Clinical Summary ---
Author Organization [employer] [facility] Address [address] [id number] Care Team Providers Care Fiction And Nonfiction Author Name Role Phone Lily Mcleod Primary Care Provider [phone] Allergies No known active allergies Medications Medication [...] age to complete this topic Care Teams Fiction And Nonfiction Author Relationship Specialty Start Date End Date Lily Mcleod [address] [place] [address] [place] [address] PCP - General Family Medicine 07/29/17
== END 2025-01-15 13:29 | disposition home or self-care (01) ==
LOC: HO.US 13:28
PROVIDERS: PCP Internal Medicine; Visit Provider Nurse Practitioner Family
DX: R22.0 Localized swelling, mass and lump, head (principal)
CPT/HCPCS: 76536

== ENCOUNTER → 2025-01-15 13:32 | Outpatient (BNV) | payer MEDICARE, MEDICAID, SELFPAY | PROVIDERS: PCP Internal Medicine; Visit Provider Radiology Diagnostic Radiology | DX: R22.0 Localized swelling, mass and lump, head (principal) | CPT/HCPCS: 76536 ==